=== PATIENT | male | born 1945 | race Caucasian/White ===

== ENCOUNTER → 2017-11-17 | Outpatient (CLI) | payer MEDICARE, BC ==
[2017-11-17 15:09] LABS: ABSOLUTE BASOPHILS # (AUTO) 0.1 10^3/uL (0.0-0.2); ABSOLUTE EOSINOPHILS # (AUTO) 0.5 10^3/uL (0.0-0.6); ABSOLUTE NEUT (AUTO) 6.8 10^3/uL (1.7-8.2); BASOPHILS % (AUTO) 1.2 % (0-2); EOSINOPHILS % (AUTO) 5.3 % (0-6); HEMATOCRIT 37.6 % (37.9-51.0); HEMOGLOBIN 12.4 g/dL (13.5-17.0); LYMPHOCYTES % (AUTO) 10.4 % (13-45); MEAN CORPUSCULAR HEMOGLOBIN 29.8 pg (27.0-33.4); MEAN CORPUSCULAR HGB CONC 32.9 g/dL (32.0-36.0); MEAN CORPUSCULAR VOLUME 91 fl (80-97); MONOCYTES % (AUTO) 10.3 % (3-13); PLATELET COUNT 238 10^3/uL (150-450); RED BLOOD COUNT 4.15 10^6/uL (4.35-5.55); RED CELL DISTRIBUTION WIDTH 14.4 % (11.5-14.0); SEGMENTED NEUTROPHILS % (AUTO) 72.8 % (42-78); TOTAL CELLS COUNTED % (AUTO) 100 %; WHITE BLOOD COUNT 9.3 10^3/uL (4.0-10.5)
[2017-11-17 15:18] LABS: APPEARANCE,URINE CLEAR; BILIRUBIN,URINE NEGATIVE (NEGATIVE); COLOR,URINE YELLOW; GLUCOSE, URINE NEGATIVE (NEGATIVE); KETONES,URINE NEGATIVE (NEGATIVE); LEUKOCYTE ESTERASE,URINE NEGATIVE (NEGATIVE); NITRITE,URINE NEGATIVE (NEGATIVE); PROTEIN,URINE 30 mg/dL (NEGATIVE); URINE SPECIFIC GRAVITY 1.018; UROBILINOGEN,URINE NEGATIVE mg/dL (<2.0)
--- NOTE | 2017-11-17 15:20 | RADIOLOGY REPORT (SQ) ---
EXAM DESCRIPTION: CHEST PA/LATERAL COMPLETED DATE/TIME: 11/17/2017 3:03 pm REASON FOR STUDY: PRE OP COMPARISON: CT angio chest 08/23/2013 Chest films 09/24/2013, 04/19/2014, 04/21/2014, 09/03/2014 EXAM PARAMETERS: NUMBER OF VIEWS: two views TECHNIQUE: Digital Frontal and Lateral radiographic views of the chest acquired. RADIATION DOSE: NA LIMITATIONS: none FINDINGS: LUNGS AND PLEURA: No opacities, masses or pneumothorax. No pleural effusion. MEDIASTINUM AND HILAR STRUCTURES: No masses or contour abnormalities. HEART AND VASCULAR STRUCTURES: Heart normal size. No evidence for failure. BONES: Since films in 2014, patient has had CABG. There are also new surgical clips in the right axi lla. HARDWARE: No pacemaker OTHER: No other significant finding. IMPRESSION: No acute findings. Post CABG. TECHNICAL DOCUMENTATION: JOB ID: [id number] [employer]- All Rights Reserved Reading location - IP/workstation name: [email or web address]
[2017-11-17 15:31] LABS: ANION GAP 11 (5-19); BLOOD UREA NITROGEN 27 mg/dL (7-20); CALCIUM 8.4 mg/dL (8.4-10.2); CARBON DIOXIDE 25 mmol/L (22-30); CHLORIDE 107 mmol/L (98-107); GLUCOSE 108 mg/dL (75-110); POTASSIUM 4.5 mmol/L (3.6-5.0); SODIUM 143.4 mmol/L (137-145)
--- NOTE | 2017-11-17 23:06 | EKG REPORT ---
SEVERITY:- ABNORMAL ECG - SINUS RHYTHM FIRST DEGREE AV BLOCK MINIMAL ST DEPRESSION, LATERAL LEADS : Confirmed by: Cam Baker 17-Nov-2017 23:05:33
== END ==
LOC: OD 14:19
PROVIDERS: ATTEND Orthopaedic Surgery
DX: Z01.810 Encounter for preprocedural cardiovascular examination (principal); Z01.812 Encounter for preprocedural laboratory examination; Z01.818 Encounter for other preprocedural examination
CPT/HCPCS: 36415; 71046; 80048; 81001; 85025; 93005; 93010

== ENCOUNTER 2017-12-13 07:30 | Inpatient (IN) | payer MEDICARE, BC ==
--- NOTE | 2017-12-21 11:25 | Physician Advisory Note ---
Physician Advisor ProgressNote .: [facility], I have reviewed the medical record for this patient. Physician Advisor Statement: Please consider documenting, if you agree: 1. "chronic diastolic CHF" 2. "moderate pulmonary HTN" 3. "DUC" 4. "Chronic Kidney DIsease stage 3" 5. all specific pre-op x-ray/scan findings present that CMS looks for: subchondral cysts, subchondral sclerosis, periarticular osteophytes, joint space narrowing, joint subluxation, AVN/osteonecrosis). 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 Unable to walk >1mile, unable to do vigorous activities or chores, limited with stairs/groceries. - Has risks for acute diastolic CHF w/jacque-op fluid shifts, for respiratory compromise post-op given DUC etc, for acute DE given CAD, for poor progression with post-op PT given age/pulmonary HTN, for GI bleeding given underlying Cleary's & AVMs and need for Plavix & post-op anticoagulation, risk for post- op urinary retention given likely underlying BPH requiring Flomax, risk for ARF post-op given fluid/BP shifts, multiple BP meds including Lasix & losartan... Attending, please document your specific concerns that will make patient likely require 2MNs post-op, to support decision for Inpatient status. Thanks! CK
[2017-12-22] MEDS ORDERED: BUPIVACAINE INJ/PF LIPOSOME/PF 266 MG/20 ML SDV INJ PRN (05:00)
[2017-12-22] MEDS ORDERED: OXYCODONE HCL SR 10 MG TABLET PO PRN (05:00)
[2017-12-22] MEDS ORDERED: LANSOPRAZOLE 15 MG TAB.RAP.DR PO PRN (05:00)
[2017-12-22] MEDS ORDERED: IBUPROFEN 800 MG in NORMAL SALINE 250 ML IV PRN (05:00)
[2017-12-22] MEDS ORDERED: CEFAZOLIN INJ 1 GM VIAL IV PRN (05:00)
[2017-12-22] MEDS ORDERED: LACTATED RINGERS 1000 ML IV PRN (05:00)
[2017-12-22] MEDS ORDERED: VANCOMYCIN HCL 1,000 MG in DEXTROSE 5%-WATER 250 ML IV PRN (05:00)
[2017-12-22] MEDS ORDERED: THROMBIN (BOVINE) 5000 UNIT EPITAXIS KIT ONE (07:36)
[2017-12-22] MEDS ORDERED: THROMBIN (BOVINE) TOPICAL 20000 UNIT VIAL ONE (07:36)
[2017-12-22] MEDS ORDERED: BUPIVACAINE INJ/PF LIPOSOME/PF 266 MG/20 ML SDV ONE (07:37)
[2017-12-22 08:14] LABS: INTERNATIONAL RATION (INR) 1.04; PROTHROMBIN TIME 14.2 SEC (11.4-15.4)
[2017-12-22] MEDS ORDERED: FENTANYL CITRATE INJ/PF 100 MCG/2 ML AMPUL ONE (09:10)
[2017-12-22] MEDS ORDERED: MIDAZOLAM 2 MG/2 ML INJ ONE ×2 (09:11)
[2017-12-22] MEDS ORDERED: TRANEXAMIC ACID INJ/PF 1,000 MG/10 ML SDV IV ONE ×3 (09:11→12:00)
[2017-12-22] MEDS ORDERED: PROPOFOL INJ 200 MG/20 ML VIAL IV ONE (09:11)
[2017-12-22] MEDS ORDERED: MORPHINE SULFATE 10 MG/ML INJ ONE (09:12)
[2017-12-22] MEDS ORDERED: BUPIVACAINE HCL/DEX-WATER/PF 15 MG/2 ML AMPULE ONE (09:13)
[2017-12-22] MEDS ORDERED: EPHEDRINE SULFATE INJ 50 MG/1 ML AMPULE ONE (09:52)
[2017-12-22] MEDS ORDERED: FENTANYL CITRATE INJ/PF 100 MCG/2 ML AMPUL IV PRN ×3 (09:57)
[2017-12-22] MEDS ORDERED: PROMETHAZINE HCL INJ 25 MG/1 ML VIAL IV PRN ×2 (09:57)
[2017-12-22] MEDS ORDERED: MEPERIDINE HCL/PF INJ 25 MG/1 ML DISP.SYRIN IV PRN (09:57)
[2017-12-22] MEDS ORDERED: MORPHINE SULFATE 10 MG/ML INJ IV PRN ×4 (09:57→10:20)
[2017-12-22] MEDS ORDERED: DIPHENHYDRAMINE HCL 50 MG/ML VIAL IV PRN ×2 (09:57→10:20)
--- NOTE | 2017-12-22 10:19 | Operative Report ---
Operative Report DATE OF SURGERY: 12/22/17 PREOPERATIVE DIAGNOSIS: Left knee arthritis OPERATION: Left knee arthroplasty SURGEON: KEM VERA ANESTHESIA: Spinal TISSUE REMOVED OR ALTERED: Bone to pathology ESTIMATED BLOOD LOSS: 100 PROCEDURE: Implants used: Femur: Reji triathlon size 6 CR femur Tibia: 6 tibia Tibial liner: 9 mm CS insert Patella: 35 mm oval patella Procedure with the patient supine on the operating table the left the limb is prepped and draped in a sterile fashion. The limb was elevated for exsanguination and the tourniquet inflated to 280 torr. A standard midline median parapatellar approach the knee is taken. Access is gained to the femoral canal through the intercondylar notch. Intramedullary alignment instrumentation used to resect 10 mm of distal femur in 5 of valgus. Sizing guide indicated a size 6 femur. Appropriate cutting jig is then used to fashion anterior posterior and chamfer cuts. A trial reduction femurs performed and this is judged to be adequate. Attention was next turned to the tibia. Using an extra medullary alignment system 9 millimeters was resected off the lateral tibial plateau. This is sized to a size 6 tibia. A trial reduction was now performed with a 6 femur and a 6 tibia using a 9 millimeters spacer. It is full extension and central patellofemoral tracking. The articular surface the patella was next resected using an oscillating saw. All trial implants were removed. Polymethylmethacrylate is mixed and used to cement the above implants in place. On adequate curing the cement excess cement was removed the tourniquet was deflated hemostasis obtained the wound is then closed in layers using interrupted Vicryl followed by cj. A sterile compressive dressing was applied and the patient returned to recovery room in satisfactory condition.
[2017-12-22] MEDS ORDERED: ACETAMINOPHEN 325 MG TABLET PO PRN (10:20)
[2017-12-22] MEDS ORDERED: ZOLPIDEM TARTRATE 5 MG TABLET PO PRN (10:20)
[2017-12-22] MEDS ORDERED: RINGERS SOLUTION,LACTATED 1,000 ML IV PRN (10:20)
[2017-12-22] MEDS ORDERED: OXYCODONE HCL IR 5 MG TABLET PO PRN (10:20)
[2017-12-22] MEDS ORDERED: ONDANSETRON HCL INJ/PF 4 MG/2 ML SDV IV PRN (10:20)
[2017-12-22] MEDS ORDERED: ONDANSETRON 4 MG TAB.RAPDIS PO PRN (10:20)
[2017-12-22] MEDS ORDERED: MAG HYDROX/AL HYDROX/SIMETH SUSP 30 ML UDCUP PO PRN (10:20)
[2017-12-22] MEDS ORDERED: MORPHINE SULFATE 10 MG/ML INJ IM PRN (10:20)
[2017-12-22] MEDS ORDERED: GLYCOPYRROLATE INJ 0.4 MG/2 ML VIAL ONE (10:53)
[2017-12-22] MEDS ORDERED: PHENYLEPHRINE HCL INJ/PF 10 MG/1 ML SDV ONE (10:53)
[2017-12-22] MEDS ORDERED: DEXAMETHASONE SOD PHOSPHATE INJ 4 MG/1 ML VIAL ONE (10:53)
[2017-12-22] MEDS ORDERED: ONDANSETRON HCL INJ/PF 4 MG/2 ML SDV ONE (10:53)
--- NOTE | 2017-12-22 11:17 | RADIOLOGY REPORT (SQ) ---
EXAM DESCRIPTION: KNEE LEFT 2 VIEWS COMPLETED DATE/TIME: 12/22/2017 11:05 am REASON FOR STUDY: Post OP -Long Cassette in PACU M17.12 UNILATERAL PRIMARY OSTEOARTHRITIS, LEFT KNE E COMPARISON: None. NUMBER OF VIEWS: Two view(s). TECHNIQUE: Digital radiographic images of the left knee post-procedure. LIMITATIONS: None. FINDINGS: BONES: No worrisome or unexpected findings post-procedure. DEVICE: Total knee arthroplasty. SOFT TISSUES: No worrisome findings. Expected postoperative soft tissue changes. IMPRESSION: SATISFACTORY POSTOPERATIVE LEFT KNEE. TECHNICAL DOCUMENTATION: JOB ID: [id number] [employer]- All Rights Reserved Reading location - IP/workstation name: [email or web address]
[2017-12-22] MEDS: IBUPROFEN 800 MG in NORMAL SALINE 250 ML IV SCH (17:57)
[2017-12-22] MEDS: SENNOSIDES/DOCUSATE 8.6-50 MG 1 EACH TABLET PO SCH (17:57)
[2017-12-22] MEDS ORDERED: CARVEDILOL 6.25 MG TABLET PO SCH (22:00)
[2017-12-22] MEDS: TAMSULOSIN HCL 0.4 MG CAP.SR.24H PO SCH (22:08)
[2017-12-22] MEDS: OXYCODONE HCL SR 10 MG TABLET PO SCH (22:08)
[2017-12-22] MEDS: ATORVASTATIN CALCIUM 10 MG TABLET PO SCH (22:08)
[2017-12-22] MEDS ORDERED: VANCOMYCIN HCL 1,000 MG in DEXTROSE 5%-WATER 250 ML IV ONE (22:20)
[2017-12-23] MEDS: IBUPROFEN 800 MG in NORMAL SALINE 250 ML IV SCH ×3 (01:54→17:47)
[2017-12-23] MEDS: LANSOPRAZOLE 30 MG TAB.RAP.DR PO SCH (05:46)
[2017-12-23] MEDS ORDERED: LANSOPRAZOLE 30 MG TAB.RAP.DR PO SCH (06:00)
[2017-12-23 06:43] LABS: HEMATOCRIT 32.9 % (37.9-51.0); HEMOGLOBIN 10.8 g/dL (13.5-17.0); MEAN CORPUSCULAR HEMOGLOBIN 29.4 pg (27.0-33.4); MEAN CORPUSCULAR HGB CONC 32.9 g/dL (32.0-36.0); MEAN CORPUSCULAR VOLUME 89 fl (80-97); PLATELET COUNT 300 10^3/uL (150-450); RED BLOOD COUNT 3.68 10^6/uL (4.35-5.55); RED CELL DISTRIBUTION WIDTH 13.7 % (11.5-14.0); WHITE BLOOD COUNT 17.5 10^3/uL (4.0-10.5)
[2017-12-23 07:12] LABS: ANION GAP 13 (5-19); BLOOD UREA NITROGEN 32 mg/dL (7-20); CARBON DIOXIDE 19 mmol/L (22-30); CHLORIDE 98 mmol/L (98-107); GLUCOSE 132 mg/dL (75-110); POTASSIUM 5.1 mmol/L (3.6-5.0)
--- NOTE | 2017-12-23 07:20 | PDOC PROGRESS REPORT ---
Subjective Progress Note for:: 12/23/17 Reason For Visit: M17.12 UNILATERAL PRIMARY OSTEOARTHRITIS, LEFT KNE 72-year-old white male now postop day 1 from left knee arthroplasty. Patient with minimal complaints of pain this morning. Limited progress with physical therapy yesterday. Physical Exam Vital Signs: Temp Pulse Resp BP Pulse Ox 36.3 C 84 19 159/77 H 94 12/22/17 23:39 12/22/17 23:39 12/22/17 23:39 12/22/17 23:39 12/22/17 23:39 Intake & Output 12/21/17 12/22/17 12/23/17 06:59 06:59 06:59 Intake Total 6712 Output Total 2100 Balance 4612 Weight 109.5 kg General appearance: PRESENT: no acute distress Head exam: PRESENT: normocephalic Respiratory exam: PRESENT: unlabored Cardiovascular exam: PRESENT: RRR Pulses: PRESENT: +1 pedal pulses bilateral Vascular exam: PRESENT: normal capillary refill GI/Abdominal exam: PRESENT: soft Rectal exam: PRESENT: deferred Extremities exam: PRESENT: other - Left lower extremity dressing clean dry and intact. Distal neurovascular examination is intact. Neurological exam: PRESENT: alert, awake, oriented to person, oriented to place , oriented to time, oriented to situation. ABSENT: motor sensory deficit Psychiatric exam: PRESENT: appropriate affect, normal mood. ABSENT: homicidal ideation, suicidal ideation Skin exam: PRESENT: dry, intact, warm. ABSENT: cyanosis, rash Results Laboratory Results: 12/22/17 07:50 Potassium 4.5 Impressions: Knee X-Ray 12/22/17 10:21 IMPRESSION: SATISFACTORY POSTOPERATIVE LEFT KNEE. Status: Imported from PACS Assessment & Plan - Diagnosis (1) Arthritis of left knee Is this a current diagnosis for this admission?: Yes Plan: 72-year-old white male postop day 1 from left knee arthroplasty. Overall postoperative course has been smooth. He has not reached a functional level with physical therapy to allow him to be discharged today. Inpatient hospitalization will be continued. Anticipate discharge home tomorrow with home health services. - Time Time Spent with patient: 15-24 minutes Anticipated discharge: Home with Homehealth Within: within 24 hours
[2017-12-23] MEDS ORDERED: ONDANSETRON 4 MG TAB.RAPDIS PO PRN (07:30)
[2017-12-23] MEDS ORDERED: ONDANSETRON HCL INJ/PF 4 MG/2 ML SDV IV PRN (07:30)
[2017-12-23] MEDS: POTASSIUM CHLORIDE 20 MEQ/15 ML UDCUP PO SCH (09:30)
[2017-12-23] MEDS: DULOXETINE HCL 30 MG CAPSULE.DR PO SCH (09:30)
[2017-12-23] MEDS: LOSARTAN POTASSIUM 50 MG TABLET PO SCH (09:31)
[2017-12-23] MEDS: SENNOSIDES/DOCUSATE 8.6-50 MG 1 EACH TABLET PO SCH ×2 (09:31→17:47)
[2017-12-23] MEDS: CARVEDILOL 12.5 MG TABLET PO SCH ×2 (09:32→21:58)
[2017-12-23] MEDS: FUROSEMIDE 40 MG TABLET PO SCH (09:32)
[2017-12-23] MEDS: OXYCODONE HCL SR 10 MG TABLET PO SCH ×2 (09:32→21:58)
[2017-12-23] MEDS: PRENATAL VITAMIN W DHA CAPSULE PO SCH (09:33)
[2017-12-23] MEDS: CLOPIDOGREL BISULFATE 75 MG TABLET PO SCH (09:33)
[2017-12-23] MEDS ORDERED: CIT AC PO SCH (10:00)
[2017-12-23] MEDS ORDERED: POTASSIUM BICARBONATE PO SCH (10:00)
[2017-12-23] MEDS ORDERED: (PENDING PHARMACY ID) (Losartan Potassium [Losartan Potassium] 100 MG) PO SCH (10:00)
[2017-12-23] MEDS ORDERED: FUROSEMIDE 20 MG TABLET PO SCH (10:00)
[2017-12-23] MEDS: TAMSULOSIN HCL 0.4 MG CAP.SR.24H PO SCH (21:58)
[2017-12-23] MEDS: ATORVASTATIN CALCIUM 10 MG TABLET PO SCH (21:58)
[2017-12-24] MEDS: IBUPROFEN 800 MG in NORMAL SALINE 250 ML IV SCH ×2 (02:35→10:49)
[2017-12-24] MEDS: LANSOPRAZOLE 30 MG TAB.RAP.DR PO SCH (05:29)
[2017-12-24 06:06] LABS: HEMATOCRIT 30.3 % (37.9-51.0); HEMOGLOBIN 10.1 g/dL (13.5-17.0); MEAN CORPUSCULAR HEMOGLOBIN 29.5 pg (27.0-33.4); MEAN CORPUSCULAR HGB CONC 33.2 g/dL (32.0-36.0); MEAN CORPUSCULAR VOLUME 89 fl (80-97); RED BLOOD COUNT 3.42 10^6/uL (4.35-5.55); RED CELL DISTRIBUTION WIDTH 14.1 % (11.5-14.0); WHITE BLOOD COUNT 17.3 10^3/uL (4.0-10.5)
[2017-12-24 06:30] LABS: PLATELET COUNT 226 10^3/uL (150-450)
--- NOTE | 2017-12-24 06:47 | PDOC PROGRESS REPORT ---
Subjective Progress Note for:: 12/24/17 Reason For Visit: M17.12 UNILATERAL PRIMARY OSTEOARTHRITIS, LEFT KNE 72-year-old white male now postop day 2 from left knee arthroplasty with new onset urinary retention last night requiring RUSLAN straight cath. Patient reports he has had this problem in the past but really was not able to describe to me what led to its resolution. Physical Exam Vital Signs: Temp Pulse Resp BP Pulse Ox 36.8 C 67 19 139/46 H 91 L 12/24/17 00:00 12/24/17 00:00 12/24/17 00:00 12/24/17 00:00 12/24/17 00:00 Intake & Output 12/22/17 12/23/17 12/24/17 06:59 06:59 06:59 Intake Total 6712 879 Output Total 2100 1050 Balance 4612 -171 Weight 109.5 kg 127.3 kg General appearance: PRESENT: no acute distress Respiratory exam: PRESENT: unlabored Cardiovascular exam: PRESENT: RRR Pulses: PRESENT: normal dorsalis pedis pul Vascular exam: PRESENT: normal capillary refill GI/Abdominal exam: PRESENT: soft Rectal exam: PRESENT: deferred Extremities exam: PRESENT: other - Knee dressing clean dry and intact. Minimal pedal edema. Neurological exam: PRESENT: alert, awake, oriented to person, oriented to place , oriented to time, oriented to situation. ABSENT: motor sensory deficit Skin exam: PRESENT: dry, intact, warm. ABSENT: cyanosis, rash Results Laboratory Results: 12/24/17 04:47 12/23/17 06:00 12/23/17 12/23/17 12/24/17 06:00 06:00 04:47 WBC 17.5 H 17.3 H RBC 3.68 L 3.42 L Hgb 10.8 L 10.1 L Hct 32.9 L 30.3 L MCV 89 89 MCH 29.4 29.5 MCHC 32.9 33.2 RDW 13.7 14.1 H Plt Count 300 226 Sodium 130.0 L Potassium 5.1 H Chloride 98 Carbon Dioxide 19 L Anion Gap 13 BUN 32 H Creatinine 1.91 H Est GFR ( Amer) 42 L Est GFR (Non-Af Amer) 35 L Glucose 132 H Calcium 9.0 Impressions: Knee X-Ray 12/22/17 10:21 IMPRESSION: SATISFACTORY POSTOPERATIVE LEFT KNEE. Status: Imported from PACS Assessment & Plan - Diagnosis (1) Arthritis of left knee Is this a current diagnosis for this admission?: Yes Plan: 72-year-old white male status post knee arthroplasty with an excellent result. Patient would have been ready for discharge home if he had developed urinary retention last night. (2) Urinary retention Is this a current diagnosis for this admission?: Yes Plan: Patient underwent RUSLAN cath and 1050 cc of urine was drained. Narcotics have been stopped. Urology has been consulted. Discharge pending resolution of the urinary retention. - Time Time Spent with patient: 15-24 minutes Anticipated discharge: Home with Homehealth Within: Other
[2017-12-24] MEDS: CARVEDILOL 12.5 MG TABLET PO SCH ×2 (10:48→22:00)
[2017-12-24] MEDS: CLOPIDOGREL BISULFATE 75 MG TABLET PO SCH (10:48)
[2017-12-24] MEDS: DULOXETINE HCL 30 MG CAPSULE.DR PO SCH (10:49)
[2017-12-24] MEDS: FUROSEMIDE 40 MG TABLET PO SCH (10:49)
[2017-12-24] MEDS: SENNOSIDES/DOCUSATE 8.6-50 MG 1 EACH TABLET PO SCH ×2 (10:49→18:11)
[2017-12-24] MEDS: PRENATAL VITAMIN W DHA CAPSULE PO SCH (10:49)
[2017-12-24] MEDS: LOSARTAN POTASSIUM 50 MG TABLET PO SCH (10:49)
[2017-12-24] MEDS: POTASSIUM CHLORIDE 20 MEQ/15 ML UDCUP PO SCH (10:49)
--- NOTE | 2017-12-24 11:00 | PDOC CONSULTATION ---
Consultation Consult Date: 12/24/17 Attending physician:: AMY PASTOR Consult reason:: urine retention History of Present Illness Admission Date/PCP: 12/22/17 06:50 KERVIN CORBETT History of Present Illness: ANSHU MCNAMARA is a 72 year old male Past Medical History Cardiac Medical History: Reports: Congestive Heart Failure, Hyperlipidema, Hypertension Denies: Atrial Fibrillation, Coronary Artery Disease, Myocardial Infarction, Peripheral Vascular Disease, Heart Murmur Pulmonary Medical History: Denies: Asthma, Bronchitis, Chronic Obstructive Pulmonary Disease (COPD), Pneumonia, Sleep Apnea, Tuberculosis Neurological Medical History: Denies: Seizures Endocrine Medical History: Denies: Hyperthyroidism, Hypothyroidism GI Medical History: Reports: Gastroesophageal Reflux Disease Denies: Crohn's Disease, Hiatal Hernia Musculoskeltal Medical History: Reports: Arthritis - knees, hips Denies: Fibromyalgia Psychiatric Medical History: Denies: Bipolar Disorder, Depression Hematology: Denies: Anemia, Sickle Cell Disease Past Surgical History Past Surgical History: Reports: Cardiac Catheterization, Coronary Stent, Orthopedic Surgery - left hip fx Denies: Appendectomy, Cholecystectomy, Colostomy, Coronary Artery Bypass Graft, Gastric Bypass Surgery, Herniorrhaphy, Tonsillectomy Social History Smoking Status: Never Smoker Frequency of Alcohol Use: None Hx Recreational Drug Use: No Hx Prescription Drug Abuse: No - Advance Directive Resuscitation Status: Full Code Family History Family History: CAD, DM, Hypertension Parental Family History Reviewed: No Children Family History Reviewed: No Sibling(s) Family History Reviewed.: No Medication/Allergy Home Medications: Duloxetine HCl [Cymbalta] 60 mg PO DAILY 09/23/13 Pantoprazole Sodium [Protonix] 40 mg PO DAILY 11/23/13 Atorvastatin Calcium [Lipitor 10 mg Tablet] 10 mg PO QHS 12/11/13 Clopidogrel Bisulfate [Plavix 75 mg Tablet] 75 mg PO DAILY 04/17/14 Tamsulosin HCl [Flomax] 0.4 mg PO QHS #30 cap.sr.24h 09/06/14 Carvedilol [Coreg 6.25 mg Tablet] 12.5 mg PO Q12 07/28/16 Furosemide [Lasix 20 mg Tablet] 40 mg PO BID 07/28/16 Losartan Potassium 100 mg PO DAILY 07/28/16 Meloxicam [Mobic] 15 mg PO DAILYP PRN 12/22/17 Tramadol HCl 50 mg PO Q6HP PRN 12/22/17 Allergies/Adverse Reactions: No Known Allergies Allergy (Verified 07/24/16 13:59) Physical Exam Vital Signs: Temp Pulse Resp BP Pulse Ox 97.5 F 69 16 140/49 H 92 12/24/17 08:00 12/24/17 08:00 12/24/17 08:00 12/24/17 08:00 12/24/17 08:00 Intake & Output 12/23/17 12/24/17 12/25/17 06:59 06:59 06:59 Intake Total 6712 879 Output Total 2100 1050 Balance 4612 -171 Weight 109.5 kg 127.3 kg Results Laboratory Results: 12/24/17 04:47 12/23/17 06:00 12/24/17 04:47 WBC 17.3 H RBC 3.42 L Hgb 10.1 L Hct 30.3 L MCV 89 MCH 29.5 MCHC 33.2 RDW 14.1 H Plt Count 226 Impressions: Knee X-Ray 12/22/17 10:21 IMPRESSION: SATISFACTORY POSTOPERATIVE LEFT KNEE. Assessment & Plan - Diagnosis (1) Urinary retention Is this a current diagnosis for this admission?: No Plan: intermittent catheterization until the residual urine is less than 50 cc will start on tamsulosin 1 tab Q day appt to urology clinic after discharge
[2017-12-24 16:12] LABS: APPEARANCE,URINE CLOUDY; BILIRUBIN,URINE NEGATIVE (NEGATIVE); COLOR,URINE YELLOW; GLUCOSE, URINE 50 mg/dL (NEGATIVE); KETONES,URINE NEGATIVE (NEGATIVE); LEUKOCYTE ESTERASE,URINE MODERATE (NEGATIVE); NITRITE,URINE NEGATIVE (NEGATIVE); PROTEIN,URINE 30 mg/dL (NEGATIVE); URINE SPECIFIC GRAVITY 1.011; UROBILINOGEN,URINE NEGATIVE mg/dL (<2.0)
[2017-12-24] MEDS: TAMSULOSIN HCL 0.4 MG CAP.SR.24H PO SCH (22:00)
[2017-12-24] MEDS: ATORVASTATIN CALCIUM 10 MG TABLET PO SCH (22:00)
[2017-12-25] MEDS: LANSOPRAZOLE 30 MG TAB.RAP.DR PO SCH (06:06)
[2017-12-25 06:17] LABS: HEMATOCRIT 24.8 % (37.9-51.0); HEMOGLOBIN 8.4 g/dL (13.5-17.0); MEAN CORPUSCULAR HEMOGLOBIN 30.1 pg (27.0-33.4); MEAN CORPUSCULAR HGB CONC 33.7 g/dL (32.0-36.0); MEAN CORPUSCULAR VOLUME 89 fl (80-97); PLATELET COUNT 225 10^3/uL (150-450); RED BLOOD COUNT 2.78 10^6/uL (4.35-5.55); RED CELL DISTRIBUTION WIDTH 13.9 % (11.5-14.0); WHITE BLOOD COUNT 12.4 10^3/uL (4.0-10.5)
[2017-12-25] MEDS: POTASSIUM CHLORIDE 20 MEQ/15 ML UDCUP PO SCH (10:24)
[2017-12-25] MEDS: SENNOSIDES/DOCUSATE 8.6-50 MG 1 EACH TABLET PO SCH ×2 (10:25→18:26)
[2017-12-25] MEDS: TRAMADOL HCL 50 MG TABLET PO PRN (10:25)
[2017-12-25] MEDS: FUROSEMIDE 40 MG TABLET PO SCH (10:25)
[2017-12-25] MEDS: CLOPIDOGREL BISULFATE 75 MG TABLET PO SCH (10:25)
[2017-12-25] MEDS: DULOXETINE HCL 30 MG CAPSULE.DR PO SCH (10:25)
[2017-12-25] MEDS: LOSARTAN POTASSIUM 50 MG TABLET PO SCH (10:25)
[2017-12-25] MEDS: PRENATAL VITAMIN W DHA CAPSULE PO SCH (10:25)
[2017-12-25] MEDS: CARVEDILOL 12.5 MG TABLET PO SCH ×2 (10:25→22:06)
--- NOTE | 2017-12-25 17:07 | PDOC PROGRESS REPORT ---
Subjective Progress Note for:: 12/25/17 Reason For Visit: M17.12 UNILATERAL PRIMARY OSTEOARTHRITIS, LEFT KNE 72-year-old white male status post left knee arthroplasty. Patient developed urinary retention which precludes discharge. Ongoing inpatient physical therapy continues. Physical Exam Vital Signs: Temp Pulse Resp BP Pulse Ox 36.7 C 70 16 120/48 L 97 12/25/17 15:54 12/25/17 15:54 12/25/17 15:54 12/25/17 15:54 12/25/17 15:54 Intake & Output 12/24/17 12/25/17 12/26/17 06:59 06:59 06:59 Intake Total 879 1318 600 Output Total 1050 3265 900 Balance -120 -924 -578 Weight 127.3 kg 120.6 kg General appearance: PRESENT: no acute distress Pulses: PRESENT: +1 pedal pulses bilateral Vascular exam: PRESENT: normal capillary refill Extremities exam: PRESENT: other - Left knee dressing clean dry and intact Results Laboratory Results: 12/25/17 05:28 12/23/17 06:00 12/25/17 05:28 WBC 12.4 H RBC 2.78 L Hgb 8.4 L Hct 24.8 L MCV 89 MCH 30.1 MCHC 33.7 RDW 13.9 Plt Count 225 Impressions: Knee X-Ray 12/22/17 10:21 IMPRESSION: SATISFACTORY POSTOPERATIVE LEFT KNEE. Assessment & Plan - Diagnosis (1) Arthritis of left knee Is this a current diagnosis for this admission?: Yes Plan: Continued physical therapy until discharge feasible (2) Urinary retention Is this a current diagnosis for this admission?: No - Time Time Spent with patient: 15-24 minutes Anticipated discharge: Home with Homehealth Within: Other
[2017-12-25] MEDS: TAMSULOSIN HCL 0.4 MG CAP.SR.24H PO SCH (22:06)
[2017-12-25] MEDS: ATORVASTATIN CALCIUM 10 MG TABLET PO SCH (22:07)
[2017-12-26] MEDS: LANSOPRAZOLE 30 MG TAB.RAP.DR PO SCH (06:30)
--- NOTE | 2017-12-26 06:43 | PDOC PROGRESS REPORT ---
Subjective Progress Note for:: 12/26/17 Reason For Visit: M17.12 UNILATERAL PRIMARY OSTEOARTHRITIS, LEFT KNE Patient continues to complain of pain in the left knee as well as inability to spontaneously void Physical Exam Vital Signs: Temp Pulse Resp BP Pulse Ox 36.9 C 77 21 H 139/50 H 97 12/25/17 23:30 12/25/17 23:30 12/25/17 23:30 12/25/17 23:30 12/25/17 23:30 Intake & Output 12/24/17 12/25/17 12/26/17 06:59 06:59 06:59 Intake Total 879 1318 600 Output Total 1050 0015 900 Balance -909 -957 -300 Weight 127.3 kg 120.6 kg General appearance: PRESENT: no acute distress Head exam: PRESENT: normocephalic Respiratory exam: PRESENT: unlabored Cardiovascular exam: PRESENT: RRR Pulses: PRESENT: +1 pedal pulses bilateral Vascular exam: PRESENT: normal capillary refill GI/Abdominal exam: PRESENT: soft Rectal exam: PRESENT: deferred Extremities exam: PRESENT: other - Left knee dressing clean dry and intact Neurological exam: PRESENT: alert, awake, oriented to person, oriented to place , oriented to time, oriented to situation. ABSENT: motor sensory deficit Psychiatric exam: PRESENT: appropriate affect, normal mood. ABSENT: homicidal ideation, suicidal ideation Skin exam: PRESENT: dry, intact, warm. ABSENT: cyanosis, rash Results Laboratory Results: 12/25/17 05:28 12/23/17 06:00 Impressions: Knee X-Ray 12/22/17 10:21 IMPRESSION: SATISFACTORY POSTOPERATIVE LEFT KNEE. Status: Imported from PACS Assessment & Plan - Diagnosis (1) Arthritis of left knee Is this a current diagnosis for this admission?: Yes Plan: Stable. Undergoing postoperative rehabilitation. Aggressive efforts to attain full extension needed. (2) Urinary retention Is this a current diagnosis for this admission?: Yes Plan: Urinary retention appears to be secondary to a urinary tract infection on the basis of the urine analysis. Patient will be empirically started on Septra. - Time Time Spent with patient: 15-24 minutes Anticipated discharge: Home with Homehealth Within: Other
[2017-12-26] MEDS: CARVEDILOL 12.5 MG TABLET PO SCH ×2 (09:05→21:05)
[2017-12-26] MEDS: DULOXETINE HCL 30 MG CAPSULE.DR PO SCH (09:05)
[2017-12-26] MEDS: CLOPIDOGREL BISULFATE 75 MG TABLET PO SCH (09:05)
[2017-12-26] MEDS: TRAMADOL HCL 50 MG TABLET PO PRN (09:06)
[2017-12-26] MEDS: LOSARTAN POTASSIUM 50 MG TABLET PO SCH (09:06)
[2017-12-26] MEDS: POTASSIUM CHLORIDE 20 MEQ/15 ML UDCUP PO SCH (09:06)
[2017-12-26] MEDS: PRENATAL VITAMIN W DHA CAPSULE PO SCH (09:06)
[2017-12-26] MEDS: SENNOSIDES/DOCUSATE 8.6-50 MG 1 EACH TABLET PO SCH ×2 (09:06→18:00)
[2017-12-26] MEDS: SULFAMETHOXAZOLE/TRIMETHOPRIM 800-160 MG TABLET PO SCH ×2 (09:06→21:43)
[2017-12-26] MEDS: FUROSEMIDE 40 MG TABLET PO SCH (09:06)
[2017-12-26] MEDS: ATORVASTATIN CALCIUM 10 MG TABLET PO SCH (21:42)
[2017-12-26] MEDS: TAMSULOSIN HCL 0.4 MG CAP.SR.24H PO SCH (21:43)
[2017-12-27] MEDS: LANSOPRAZOLE 30 MG TAB.RAP.DR PO SCH (05:34)
[2017-12-27] MEDS: CARVEDILOL 12.5 MG TABLET PO SCH ×2 (09:17→21:49)
[2017-12-27] MEDS: CLOPIDOGREL BISULFATE 75 MG TABLET PO SCH (09:17)
[2017-12-27] MEDS: DULOXETINE HCL 30 MG CAPSULE.DR PO SCH (09:20)
[2017-12-27] MEDS: FUROSEMIDE 40 MG TABLET PO SCH (09:20)
[2017-12-27] MEDS: LOSARTAN POTASSIUM 50 MG TABLET PO SCH (09:20)
[2017-12-27] MEDS: PRENATAL VITAMIN W DHA CAPSULE PO SCH (09:21)
[2017-12-27] MEDS: SULFAMETHOXAZOLE/TRIMETHOPRIM 800-160 MG TABLET PO SCH ×2 (09:21→21:49)
[2017-12-27] MEDS: SENNOSIDES/DOCUSATE 8.6-50 MG 1 EACH TABLET PO SCH ×2 (09:21→18:36)
[2017-12-27] MEDS: POTASSIUM CHLORIDE 20 MEQ/15 ML UDCUP PO SCH (09:21)
[2017-12-27] MEDS: ATORVASTATIN CALCIUM 10 MG TABLET PO SCH (21:49)
[2017-12-27] MEDS: TAMSULOSIN HCL 0.4 MG CAP.SR.24H PO SCH (21:49)
[2017-12-28] MEDS: LANSOPRAZOLE 30 MG TAB.RAP.DR PO SCH (05:30)
--- NOTE | 2017-12-28 07:17 | PDOC PROGRESS REPORT ---
Subjective Progress Note for:: 12/28/17 Reason For Visit: M17.12 UNILATERAL PRIMARY OSTEOARTHRITIS, LEFT KNE 72-year-old white male status post left knee arthroplasty with persistent inability to void spontaneously requiring intermittent RUSLAN catheterization. Physical Exam Vital Signs: Temp Pulse Resp BP Pulse Ox 37.1 C 55 L 19 122/52 L 99 12/27/17 23:08 12/27/17 23:08 12/27/17 23:08 12/27/17 23:10 12/27/17 23:08 Intake & Output 12/27/17 12/28/17 12/29/17 06:59 06:59 06:59 Intake Total 1476 230 Output Total 965 1450 Balance 511 -1220 Weight 121 kg 120.4 kg General appearance: PRESENT: no acute distress Head exam: PRESENT: normocephalic Respiratory exam: PRESENT: unlabored Cardiovascular exam: PRESENT: RRR Pulses: PRESENT: +1 pedal pulses bilateral Vascular exam: PRESENT: normal capillary refill GI/Abdominal exam: PRESENT: soft Rectal exam: PRESENT: deferred Extremities exam: PRESENT: other - Left knee dressing with old scant drainage. Neurological exam: PRESENT: alert, awake, oriented to person, oriented to place , oriented to time, oriented to situation. ABSENT: motor sensory deficit Psychiatric exam: PRESENT: appropriate affect, normal mood. ABSENT: homicidal ideation, suicidal ideation Skin exam: PRESENT: dry, intact, warm. ABSENT: cyanosis, rash Results Laboratory Results: 12/25/17 05:28 12/23/17 06:00 Impressions: Knee X-Ray 12/22/17 10:21 IMPRESSION: SATISFACTORY POSTOPERATIVE LEFT KNEE. Status: Imported from PACS Assessment & Plan - Diagnosis (1) Arthritis of left knee Is this a current diagnosis for this admission?: Yes Plan: Status post left knee arthroplasty with an uneventful postoperative course. (2) Urinary retention Is this a current diagnosis for this admission?: Yes Plan: Patient continues to require I and O caths every 6. Tentative plan will be to teach the patient and his had to do the catheterizations and anticipate discharge home tomorrow with home health services. - Time Time Spent with patient: 15-24 minutes Anticipated discharge: Home with Homehealth Within: within 24 hours
[2017-12-28] MEDS ORDERED: MAGNESIUM CITRATE 296 ML BOTTLE PO ONE (09:30)
[2017-12-28] MEDS: POTASSIUM CHLORIDE 20 MEQ/15 ML UDCUP PO SCH (10:02)
[2017-12-28] MEDS: CLOPIDOGREL BISULFATE 75 MG TABLET PO SCH (10:03)
[2017-12-28] MEDS: DULOXETINE HCL 30 MG CAPSULE.DR PO SCH (10:03)
[2017-12-28] MEDS: PRENATAL VITAMIN W DHA CAPSULE PO SCH (10:03)
[2017-12-28] MEDS: CARVEDILOL 12.5 MG TABLET PO SCH ×2 (10:03→22:40)
[2017-12-28] MEDS: LOSARTAN POTASSIUM 50 MG TABLET PO SCH (10:03)
[2017-12-28] MEDS: FUROSEMIDE 40 MG TABLET PO SCH (10:03)
[2017-12-28] MEDS: SENNOSIDES/DOCUSATE 8.6-50 MG 1 EACH TABLET PO SCH ×2 (10:04→18:13)
[2017-12-28] MEDS: SULFAMETHOXAZOLE/TRIMETHOPRIM 800-160 MG TABLET PO SCH ×2 (10:04→22:40)
[2017-12-28] MEDS: TRAMADOL HCL 50 MG TABLET PO PRN (18:58)
[2017-12-28] MEDS: TAMSULOSIN HCL 0.4 MG CAP.SR.24H PO SCH (22:40)
[2017-12-28] MEDS: ATORVASTATIN CALCIUM 10 MG TABLET PO SCH (22:40)
[2017-12-29] MEDS: LANSOPRAZOLE 30 MG TAB.RAP.DR PO SCH (05:05)
--- NOTE | 2017-12-29 07:22 | PDOC DISCHARGE SUMMARY ---
General - Admit/Disc Date/PCP Admission Date/Primary Care Provider: 12/22/17 06:50 KERVIN CORBETT Discharge Date: 12/29/17 - Discharge Diagnosis (1) Arthritis of left knee Is this a current diagnosis for this admission?: Yes (2) Urinary retention Is this a current diagnosis for this admission?: Yes - Additional Information Resuscitation Status: Full Code Discharge Diet: As Tolerated, Regular Discharge Activity: Activity As Tolerated, Balance Activity w/Rest, No Driving, No tub bath Home Medications: Duloxetine HCl [Cymbalta] 60 mg PO DAILY 09/23/13 Pantoprazole Sodium [Protonix] 40 mg PO DAILY 11/23/13 Atorvastatin Calcium [Lipitor 10 mg Tablet] 10 mg PO QHS 12/11/13 Clopidogrel Bisulfate [Plavix 75 mg Tablet] 75 mg PO DAILY 04/17/14 Tamsulosin HCl [Flomax] 0.4 mg PO QHS #30 cap.sr.24h 09/06/14 Carvedilol [Coreg 6.25 mg Tablet] 12.5 mg PO Q12 07/28/16 Furosemide [Lasix 20 mg Tablet] 40 mg PO BID 07/28/16 Losartan Potassium 100 mg PO DAILY 07/28/16 Meloxicam [Mobic] 15 mg PO DAILYP PRN 12/22/17 Tramadol HCl 50 mg PO Q6HP PRN 12/22/17 History of Present Illness History of Present Illness: ANSHU MCNAMARA is a 72 year old male with progressive left knee pain and functional disability secondary osteoarthritis. Patient is admitted for elective left knee arthroplasty. Hospital Course Hospital Course: Patient is admitted through the operating where he and his undergoes uncomplicated left knee arthroplasty. Is returned to floor in satisfactory vision. Seen by physical therapy for weightbearing as tolerated ambulation. Taken patient makes slow but steady progress in this regard. Dressing remains clean dry and intact. By the second postoperative day the patient is exhibiting urinary retention. And in and out cathing program is started and urology is consulted. Urology prescribed Flomax. Patient was started on Septra for presumed urinary tract infection. In spite of Flomax and Septra the patient's urinary retention is not significantly improved. He was taught how to in and out catheterize himself in anticipation of discharge home today. Physical Exam Vital Signs: Temp Pulse Resp BP Pulse Ox 36.7 C 56 L 20 124/43 L 100 12/28/17 23:35 12/28/17 23:35 12/28/17 23:35 12/28/17 23:35 12/28/17 23:35 Intake & Output 12/28/17 12/29/17 12/30/17 06:59 06:59 06:59 Intake Total 230 544 Output Total 1450 1650 Balance -1220 -1106 Weight 120.4 kg 120.4 kg General appearance: PRESENT: no acute distress Head exam: PRESENT: normocephalic Respiratory exam: PRESENT: unlabored Cardiovascular exam: PRESENT: RRR Pulses: PRESENT: +1 pedal pulses bilateral Vascular exam: PRESENT: normal capillary refill GI/Abdominal exam: PRESENT: soft Rectal exam: PRESENT: deferred Musculoskeletal exam: PRESENT: other - Left knee dressing clean dry and intact. Minimal pedal edema. Distal neurovascular examination is intact. Neurological exam: PRESENT: alert, awake, oriented to person, oriented to place , oriented to time, oriented to situation, CN II-XII grossly intact. ABSENT: motor sensory deficit Psychiatric exam: PRESENT: appropriate affect, normal mood. ABSENT: homicidal ideation, suicidal ideation Skin exam: PRESENT: dry, intact, warm. ABSENT: cyanosis, rash Results Laboratory Results: 12/25/17 05:28 12/23/17 06:00 Impressions: Knee X-Ray 12/22/17 10:21 IMPRESSION: SATISFACTORY POSTOPERATIVE LEFT KNEE. Status: Imported from PACS Qualifiers - * PATIENT BEING DISCHARGED WITH ANY OF THE FOLLOWING DIAGNOSIS: No VTE patient discharged on overlapping Therapy?: Yes Plan Discharge Plan: Patient to be discharged home with home health services. Patient will follow up with urology on an outpatient basis. Follow-up with Dr. Arzate and [facility] for surgery in 2 weeks for staple removal. Time Spent: Less than 30 Minutes
[2017-12-29 08:39] VITALS: BP 122/46
== END 2017-12-29 10:10 | disposition home health service (06) | DRG 470 ==
LOC: INOR 12-22 06:50 → 4S 12-22 12:04
PROVIDERS: ADMIT Orthopaedic Surgery; ATTEND Orthopaedic Surgery
PROC: 0SRD0J9 Replacement of Left Knee Joint with Synthetic Substitute, Cemented, Open Approach (ICD-10-PCS; principal; 2017-12-22 09:00)
DX: M17.0 Bilateral primary osteoarthritis of knee (principal); N17.9 Acute kidney failure, unspecified; Z51.5 Encounter for palliative care; R33.9 Retention of urine, unspecified; I11.0 Hypertensive heart disease with heart failure; I50.9 Heart failure, unspecified; E78.00 Pure hypercholesterolemia, unspecified; K21.9 Gastro-esophageal reflux disease without esophagitis; M16.0 Bilateral primary osteoarthritis of hip; D64.9 Anemia, unspecified; K22.719 Barrett's esophagus with dysplasia, unspecified; Z79.899 Other long term (current) drug therapy; Z95.5 Presence of coronary angioplasty implant and graft; Z82.49 Family history of ischemic heart disease and other diseases of the circulatory system; Z83.3 Family history of diabetes mellitus
CPT/HCPCS: 01402; 36415; 80048; 81001; 82962; 84132; 85027; 85610; 85730; 87086; 88305; 88311; 94799; C2625; C9290; G8978-GP; G8979-GP; G8990-GO; G8991-GO; J0690; J1100; J1741; J2250; J2270; J2370; J2405; J2704; J3010; J3370; J3490; J7050; J7060; S0119

== ENCOUNTER 2018-01-19 12:52 | Inpatient (IN) | payer MEDICARE, BC ==
[2018-01-19] MEDS ORDERED: CEFTRIAXONE 1 GM/D5W RTU 1 GM/50 ML RTUPB IV ONE (13:19)
[2018-01-19] MEDS ORDERED: NORMAL SALINE 1000 ML 1,000 ML IV ONE (13:19)
--- NOTE | 2018-01-19 13:31 | ER Document Report ---
ED General - General Chief Complaint: Altered Mental Status Stated Complaint: ALTERED MENTAL STATUS Time Seen by Provider: 01/19/18 13:04 Mode of Arrival: Ambulatory Information source: Patient, Relative Cannot obtain history due to: Altered mental status Notes: 72-year-old male presents with 1 week duration of altered mental status per . notes that he had knee replacement performed approximately 1 month ago had a Tucker catheter at that time, has noted foul-smelling urine and dark urine. notes that he has been hallucinating and trying to grab at things that are not there. Patient admits that he has been drowsier than normal TRAVEL OUTSIDE OF THE [place] IN LAST 30 DAYS: No - HPI Onset: Last week Onset/Duration: Persistent Quality of pain: No pain Severity: Mild Pain Level: Denies Associated symptoms: Weakness, Other Exacerbated by: Denies Relieved by: Denies Similar symptoms previously: No Recently seen / treated by doctor: No - Related Data Allergies/Adverse Reactions: No Known Allergies Allergy (Verified 07/24/16 13:59) Past Medical History - Social History Smoking Status: Never Smoker Cigarette use (# per day): No Chew tobacco use (# tins/day): No Smoking Education Provided: No Family History: CAD, DM, Hypertension - Past Medical History Cardiac Medical History: Reports: Hx Congestive Heart Failure, Hx Hypercholesterolemia, Hx Hypertension Denies: Hx Atrial Fibrillation, Hx Coronary Artery Disease, Hx Heart Attack, Hx Peripheral Vascular Disease, Hx Heart Murmur Pulmonary Medical History: Denies: Hx Asthma, Hx Bronchitis, Hx COPD, Hx Pneumonia, Hx Sleep Apnea, Hx Tuberculosis Neurological Medical History: Denies: Hx Cerebrovascular Accident, Hx Seizures Endocrine Medical History: Denies: Hx Hyperthyroidism, Hx Hypothyroidism Renal/ Medical History: Reports: Hx Benign Prostatic Hyperplasia, Hx Renal Insufficiency. Denies: Hx Kidney Stones, Hx Peritoneal Dialysis GI Medical History: Reports: Hx Gastroesophageal Reflux Disease. Denies: Hx Crohn's Disease, Hx Hiatal Hernia, Hx Irritable Bowel, Hx Liver Failure, Hx Pancreatitis, Hx Ulcer Musculoskeltal Medical History: Reports Hx Arthritis - knees, hips , Denies Hx Fibromyalgia, Denies Hx Muscular Dystrophy Psychiatric Medical History: Denies: Hx Bipolar Disorder, Hx Depression Traumatic Medical History: Reports: Hx Fractures - hip Past Surgical History: Reports: Hx Cardiac Catheterization, Hx Cardiac Surgery - stents, Hx Coronary Stent, Hx Orthopedic Surgery - left hip fx. Denies: Hx Appendectomy, Hx Bowel Surgery, Hx Cholecystectomy, Hx Colostomy, Hx Coronary Artery Bypass Graft, Hx Gastric Bypass Surgery, Hx Herniorrhaphy, Hx Tonsillectomy - Immunizations Hx Diphtheria, Pertussis, Tetanus Vaccination: Yes - unknown Hx Pneumococcal Vaccination: 08/26/13 Review of Systems - Review of Systems Notes: REVIEW OF SYSTEMS: CONSTITUTIONAL : Denies fever, chills, or sweats. Denies recent illness. EENT: Denies eye, ear, throat, or mouth pain or symptoms. Denies nasal or sinus congestion or discharge. Denies throat, tongue, or mouth swelling or difficulty swallowing. CARDIOVASCULAR: Denies chest pain. Denies palpitations or racing or irregular heart beat. Denies ankle edema. RESPIRATORY: Denies cough, cold, or chest congestion. Denies shortness of breath, difficulty breathing, or wheezing. GASTROINTESTINAL: Denies abdominal pain or distention. Denies nausea, vomiting , or diarrhea. Denies blood in vomitus, stools, or per rectum. Denies black, tarry stools. Denies constipation. GENITOURINARY: Admits to foul-smelling urine MUSCULOSKELETAL: Denies back or neck pain or stiffness. Denies joint pain or swelling. SKIN: Denies rash, lesions or sores. HEMATOLOGIC : Denies easy bruising or bleeding. LYMPHATIC: Denies swollen, enlarged glands. NEUROLOGICAL: Admits confusion PSYCHIATRIC: Denies anxiety or stress. Denies depression, suicidal ideation, or homicidal ideation. ALL OTHER SYSTEMS REVIEWED AND NEGATIVE. Dictation was performed using [employer] voice recognition software PHYSICAL EXAMINATION: GENERAL: Well-appearing, well-nourished and in no acute distress. Patient is drowsy HEAD: Atraumatic, normocephalic. EYES: Pupils equal round and reactive to light, extraocular movements intact, sclera anicteric, conjunctiva are normal. ENT: Nares patent, oropharynx clear without exudates. Moist mucous membranes. NECK: Normal range of motion, supple without lymphadenopathy LUNGS: Breath sounds clear to auscultation bilaterally and equal. No wheezes rales or rhonchi. HEART: Regular rate and rhythm without murmurs ABDOMEN: Soft, nontender, nondistended abdomen. No guarding, no rebound. No masses appreciated. Musculoskeletal: Normal range of motion, no pitting or edema. No cyanosis. NEUROLOGICAL: Patient is quite drowsy believes is 2014 PSYCH: Normal mood, normal affect. SKIN: Warm, Dry, normal turgor, no rashes or lesions noted. Physical Exam - Vital signs Vitals: Resp Pulse Ox 20 96 01/19/18 13:56 01/19/18 13:56 Course - Re-evaluation Re-evalutation: 01/19/18 14:02 Patient is able to follow commands however appears quite drowsy, I am concerned that he is ill due to his UTI, lab work pending 01/19/18 15:25 workup thus far is benign, but patient is quite confused and drowsy, Dr Corbett paged for admission 01/19/18 16:26 Patient will be admitted at this time vitals are stable but he continues to be quite drowsy and confused - Vital Signs Vital signs: Temp Pulse Resp BP Pulse Ox 18 145/43 H 95 01/19/18 15:05 01/19/18 14:04 01/19/18 14:04 - Laboratory Result Diagrams: 01/19/18 12:32 01/19/18 12:32 Laboratory results interpreted by me: 01/19/18 01/19/18 01/19/18 12:32 12:32 12:32 RBC 3.29 L Hgb 9.7 L Hct 28.7 L RDW 14.6 H Plt Count 654 H Lymphocytes % 11.9 L PT 16.0 H VBG pH Potassium 5.7 H BUN 42 H Creatinine 2.19 H Est GFR ( Amer) 36 L Est GFR (Non-Af Amer) 30 L Direct Bilirubin 0.6 H Urine Blood 01/19/18 01/19/18 13:37 13:56 RBC Hgb Hct RDW Plt Count Lymphocytes % PT VBG pH 7.45 H Potassium BUN Creatinine Est GFR ( Amer) Est GFR (Non-Af Amer) Direct Bilirubin Urine Blood SMALL H - Diagnostic Test Radiology reviewed: Image reviewed - CT head notes no acute abnormality, Reports reviewed Discharge - Discharge Clinical Impression: Metabolic encephalopathy, Hyperkalemia Acute renal failure Qualifiers: Acute renal failure type: unspecified Qualified Code(s): N17.9 - Acute kidney failure, unspecified Condition: Stable Disposition: ADMITTED OBSERVATION Admitting Provider: Kim Referrals: KERVIN CORBETT MD [Primary Care Provider] - Follow up as needed
[2018-01-19 13:48] LABS: ABSOLUTE BASOPHILS # (AUTO) 0.1 10^3/uL (0.0-0.2); ABSOLUTE EOSINOPHILS # (AUTO) 0.4 10^3/uL (0.0-0.6); ABSOLUTE MONOCYTES (AUTO) 0.9 10^3/uL (0.1-1.4); ABSOLUTE NEUT (AUTO) 6.2 10^3/uL (1.7-8.2); BASOPHILS % (AUTO) 1.4 % (0-2); EOSINOPHILS % (AUTO) 4.4 % (0-6); HEMATOCRIT 28.7 % (37.9-51.0); HEMOGLOBIN 9.7 g/dL (13.5-17.0); LYMPHOCYTES % (AUTO) 11.9 % (13-45); MEAN CORPUSCULAR HEMOGLOBIN 29.6 pg (27.0-33.4); MEAN CORPUSCULAR HGB CONC 33.9 g/dL (32.0-36.0); MEAN CORPUSCULAR VOLUME 87 fl (80-97); MONOCYTES % (AUTO) 10.7 % (3-13); PLATELET COUNT 654 10^3/uL (150-450); RED BLOOD COUNT 3.29 10^6/uL (4.35-5.55); RED CELL DISTRIBUTION WIDTH 14.6 % (11.5-14.0); SEGMENTED NEUTROPHILS % (AUTO) 71.6 % (42-78); TOTAL CELLS COUNTED % (AUTO) 100 %; WHITE BLOOD COUNT 8.7 10^3/uL (4.0-10.5)
[2018-01-19 13:52] LABS: INTERNATIONAL RATION (INR) 1.22
[2018-01-19 14:19] LABS: APPEARANCE,URINE CLEAR; BILIRUBIN,URINE NEGATIVE (NEGATIVE); COLOR,URINE YELLOW; GLUCOSE, URINE NEGATIVE (NEGATIVE); KETONES,URINE NEGATIVE (NEGATIVE); LEUKOCYTE ESTERASE,URINE NEGATIVE (NEGATIVE); NITRITE,URINE NEGATIVE (NEGATIVE); PROTEIN,URINE NEGATIVE (NEGATIVE); URINE SPECIFIC GRAVITY 1.011; UROBILINOGEN,URINE NEGATIVE mg/dL (<2.0)
[2018-01-19 14:21] LABS: VENOUS BLOOD BASE EXCESS 0.8 mmol/L; VENOUS BLOOD HCO3 24.6 mmol/L (20-32); VENOUS BLOOD PCO2 36.7 mmHg (35-63); VENOUS BLOOD PH 7.45 (7.30-7.42)
[2018-01-19 14:22] LABS: ALANINE AMINOTRANSFERASE 32 U/L (21-72); ALBUMIN 3.5 g/dL (3.5-5.0); ALKALINE PHOSPHATASE 91 U/L (38-126); ANION GAP 13 (5-19); ASPARTATE AMINO TRANSFERASE 32 U/L (17-59); BILIRUBIN,DIRECT 0.6 mg/dL (0.0-0.4); BILIRUBIN,TOTAL 0.6 mg/dL (0.2-1.3); BLOOD UREA NITROGEN 42 mg/dL (7-20); CARBON DIOXIDE 26 mmol/L (22-30); CHLORIDE 105 mmol/L (98-107); GLUCOSE 110 mg/dL (75-110); POTASSIUM 5.7 mmol/L (3.6-5.0); SODIUM 143.6 mmol/L (137-145); TOTAL PROTEIN 7.7 g/dL (6.3-8.2)
--- NOTE | 2018-01-19 14:26 | RADIOLOGY REPORT (SQ) ---
EXAM DESCRIPTION: CHEST SINGLE VIEW COMPLETED DATE/TIME: 01/19/2018 2:13 pm REASON FOR STUDY: confusion COMPARISON: 11/17/2017. EXAM PARAMETERS: NUMBER OF VIEWS: One view. TECHNIQUE: Single frontal radiographic view of the chest acquired. RADIATION DOSE: NA LIMITATIONS: None. FINDINGS: LUNGS AND PLEURA: No opacities, masses or pneumothorax. No pleural effusion. MEDIASTINUM AND HILAR STRUCTURES: No masses. Contour normal. HEART AND VASCULAR STRUCTURES: Heart normal in size. Normal vasculature. BONES: No acute findings. HARDWARE: Sternotomy wires. Surgical clips in the soft tissues on the right. OTHER: No other significant finding. IMPRESSION: NO ACUTE RADIOGRAPHIC FINDING IN THE CHEST. TECHNICAL DOCUMENTATION: JOB ID: [id number] [employer]- All Rights Reserved Reading location - IP/workstation name: [email or web address]
--- NOTE | 2018-01-19 15:17 | RADIOLOGY REPORT (SQ) ---
EXAM DESCRIPTION: CT HEAD WITHOUT COMPLETED DATE/TIME: 01/19/2018 3:06 pm REASON FOR STUDY: confusion COMPARISON: None. TECHNIQUE: Axial images acquired through the brain without intravenous contrast. Images reviewed wi th bone, brain and subdural windows. Additional sagittal and coronal reconstructions were generated. Images stored on PACS. All CT scanners at this facility use dose modulation, iterative reconstruction, and/or weight based d osing when appropriate to reduce radiation dose to as low as reasonably achievable (ALARA). [facility]: Dose Right [facility]: CareDose [facility]: Dose Right [facility]: Teradose 4D [facility]: [employer] RADIATION DOSE: CT Rad equipment meets quality standard of care and radiation dose reduction techniq ues were employed. CTDIvol: 53.2 mGy. DLP: 991 mGy-cm.mGy. LIMITATIONS: None. FINDINGS: VENTRICLES: Prominent. CEREBRUM: No masses. No hemorrhage. No midline shift. Areas of low density in the white matter mos t likely due to chronic micro-vascular ischemic change. No evidence for acute infarction. CEREBELLUM: No masses. No hemorrhage. No alteration of density. No evidence for acute infarction. EXTRAAXIAL SPACES: Age-related involutional change. No fluid collections. No masses. ORBITS AND GLOBE: No intra- or extraconal masses. Normal contour of globe without masses. CALVARIUM: No fracture. PARANASAL SINUSES: No fluid or mucosal thickening. SOFT TISSUES: No mass or hematoma. OTHER: No other significant finding. IMPRESSION: CHRONIC CHANGES OF ATROPHY AND MICROVASCULAR ISCHEMIA. NO ACUTE PROCESS. EVIDENCE OF ACUTE STROKE: NO. TECHNICAL DOCUMENTATION: JOB ID: [id number] Quality ID # [id number]: Final reports with documentation of one or more dose reduction techniques (e.g., Au tomated exposure control, adjustment of the mA and/or kV according to patient size, use of iterative reconstruction technique) 2010 [employer]- All Rights Reserved Reading location - IP/workstation name: [email or web address]
[2018-01-19] MEDS ORDERED: DIPHENHYDRAMINE HCL 50 MG CAPSULE PO ONE (15:34)
[2018-01-19] MEDS ORDERED: INSULIN REG, HUMAN 100 UNIT/ML 3 ML VIAL (PYX) IV ONE (16:25)
[2018-01-19] MEDS ORDERED: DEXTROSE 50%-WATER 25 GM/50 ML DISP.SYRIN IV ONE (16:25)
[2018-01-19] MEDS ORDERED: SODIUM BICARBONATE 8.4% INJ 50 MEQ/50 ML DISP.SYRIN IV ONE (16:25)
[2018-01-19] MEDS ORDERED: ALBUTEROL SULFATE 0.083% NEB 2.5 MG/3 ML AMPUL NEB ONE (16:25)
--- NOTE | 2018-01-19 22:31 | EKG REPORT ---
SEVERITY:- ABNORMAL ECG - SINUS RHYTHM FIRST DEGREE AV BLOCK NONSPECIFIC REPOL ABNORMALITY, DIFFUSE LEADS : Confirmed by: Carmela Torres MD 19-Jan-2018 22:30:58
[2018-01-19] MEDS ORDERED: TAMSULOSIN HCL 0.4 MG CAP.SR.24H PO ONE (23:00)
[2018-01-19] MEDS: CARVEDILOL 12.5 MG TABLET PO SCH (23:03)
[2018-01-19] MEDS: ATORVASTATIN CALCIUM 10 MG TABLET PO SCH (23:05)
[2018-01-20] MEDS ORDERED: NORMAL SALINE 1000 ML 1,000 ML IV PRN (00:25)
[2018-01-20] MEDS: ZOLPIDEM TARTRATE 5 MG TABLET PO PRN (00:56)
[2018-01-20] MEDS: LANSOPRAZOLE 30 MG TAB.RAP.DR PO SCH (05:08)
[2018-01-20] MEDS: ACETAMINOPHEN 325 MG TABLET PO PRN (05:32)
[2018-01-20 07:09] LABS: HEMATOCRIT 24.6 % (37.9-51.0); HEMOGLOBIN 8.2 g/dL (13.5-17.0); MEAN CORPUSCULAR HEMOGLOBIN 29.2 pg (27.0-33.4); MEAN CORPUSCULAR HGB CONC 33.4 g/dL (32.0-36.0); MEAN CORPUSCULAR VOLUME 87 fl (80-97); PLATELET COUNT 552 10^3/uL (150-450); RED BLOOD COUNT 2.81 10^6/uL (4.35-5.55); RED CELL DISTRIBUTION WIDTH 14.7 % (11.5-14.0); WHITE BLOOD COUNT 9.3 10^3/uL (4.0-10.5)
[2018-01-20 07:35] LABS: ALANINE AMINOTRANSFERASE 31 U/L (21-72); ALBUMIN 3.1 g/dL (3.5-5.0); ALKALINE PHOSPHATASE 89 U/L (38-126); ANION GAP 14 (5-19); ASPARTATE AMINO TRANSFERASE 24 U/L (17-59); BILIRUBIN,DIRECT 0.4 mg/dL (0.0-0.4); BILIRUBIN,TOTAL 0.4 mg/dL (0.2-1.3); BLOOD UREA NITROGEN 33 mg/dL (7-20); CALCIUM 9.4 mg/dL (8.4-10.2); CARBON DIOXIDE 23 mmol/L (22-30); CHLORIDE 111 mmol/L (98-107); CHOLESTEROL 146.86 mg/dL (0-200); GLUCOSE 106 mg/dL (75-110); SODIUM 148.3 mmol/L (137-145); TOTAL PROTEIN 6.7 g/dL (6.3-8.2); TRIGLYCERIDES 115 mg/dL (<150)
[2018-01-20 07:45] LABS: DIRECT LDL 85 mg/dL (<100)
--- NOTE | 2018-01-20 08:24 | PDOC CONSULTATION ---
Consultation Consult Date: 01/20/18 Attending physician:: KERVIN CORBETT Consult reason:: Hematology consult was requested for patient with anemia and thrombocytosis. History of Present Illness Admission Date/PCP: 01/19/18 16:55 KERVIN CORBETT History of Present Illness: ANSHU MCNAMARA is a 72 year old male who presented to the ED with family complaining of confusion. Family is not current available. Patient states that he has just been taking care of every one else and cannot say exactly why he is here or where he is. He states that he was told 1 week ago that he had abnormal blood counts by Dr. Corbett. Otherwise, he is a very poor historian. Past Medical History Cardiac Medical History: Reports: Congestive Heart Failure, Hyperlipidema, Hypertension Denies: Atrial Fibrillation, Coronary Artery Disease, Myocardial Infarction, Peripheral Vascular Disease, Heart Murmur Pulmonary Medical History: Denies: Asthma, Bronchitis, Chronic Obstructive Pulmonary Disease (COPD), Pneumonia, Sleep Apnea, Tuberculosis Neurological Medical History: Denies: Seizures Endocrine Medical History: Denies: Hyperthyroidism, Hypothyroidism GI Medical History: Reports: Gastroesophageal Reflux Disease Denies: Crohn's Disease, Hiatal Hernia Musculoskeltal Medical History: Reports: Arthritis - knees, hips Denies: Fibromyalgia Psychiatric Medical History: Denies: Bipolar Disorder, Depression Hematology: Denies: Anemia, Sickle Cell Disease Past Surgical History Past Surgical History: Reports: Cardiac Catheterization, Coronary Stent, Orthopedic Surgery - left hip fx, Other - Patient tells me he has had an aortic valve replacement. I cannot verify Denies: Appendectomy, Cholecystectomy, Colostomy, Coronary Artery Bypass Graft, Gastric Bypass Surgery, Herniorrhaphy, Tonsillectomy Social History Information Source: [facility] Records Lives with: Spouse/Significant other Smoking Status: Former Smoker Last Time Smoked: Pt. reports approx. 4 years ago Frequency of Alcohol Use: None Hx Recreational Drug Use: No Drugs: None Hx Prescription Drug Abuse: No Past Social History Note: Patient states he has 6 children. Family History Family History: CAD, DM, Hypertension Family History: Patient unable to answer. Parental Family History Reviewed: No Children Family History Reviewed: No Sibling(s) Family History Reviewed.: No Medication/Allergy Home Medications: Duloxetine HCl [Cymbalta] 60 mg PO DAILY 09/23/13 Pantoprazole Sodium [Protonix] 40 mg PO DAILY 11/23/13 Atorvastatin Calcium [Lipitor 10 mg Tablet] 10 mg PO QHS 12/11/13 Clopidogrel Bisulfate [Plavix 75 mg Tablet] 75 mg PO DAILY 04/17/14 Tamsulosin HCl [Flomax] 0.4 mg PO QHS #30 cap.sr.24h 09/06/14 Carvedilol [Coreg 6.25 mg Tablet] 12.5 mg PO Q12 07/28/16 Furosemide [Lasix 20 mg Tablet] 40 mg PO BID 07/28/16 Losartan Potassium 100 mg PO DAILY 07/28/16 Meloxicam [Mobic] 15 mg PO DAILYP PRN 12/22/17 Tramadol HCl 50 mg PO Q6HP PRN 12/22/17 Allergies/Adverse Reactions: No Known Allergies Allergy (Verified 07/24/16 13:59) Review of Systems ROS unobtainable: Due to mental status Physical Exam Vital Signs: Temp Pulse Resp BP Pulse Ox 98.3 F 75 20 129/64 H 96 01/20/18 04:00 01/20/18 04:00 01/20/18 04:00 01/20/18 04:00 01/20/18 04:00 Intake & Output 01/19/18 01/20/18 01/21/18 06:59 06:59 06:59 Intake Total 370 Output Total 350 Balance 20 Weight 113.7 kg Exam: Obese, 72 year old male. He is in bed. Head exam: PRESENT: atraumatic Eye exam: PRESENT: PERRLA Mouth exam: PRESENT: moist, tongue midline, other - White tongue Neck exam: ABSENT: lymphadenopathy, tenderness Respiratory exam: PRESENT: clear to auscultation maral, unlabored Cardiovascular exam: PRESENT: RRR. ABSENT: systolic murmur GI/Abdominal exam: PRESENT: normal bowel sounds, soft. ABSENT: tenderness Extremities exam: PRESENT: other - SCDs in place. ABSENT: pedal edema Musculoskeletal exam: PRESENT: other - arthritic joints in fingers Neurological exam: PRESENT: awake, other - Not oriented. Moves all 4 extremities. Psychiatric exam: PRESENT: other - He is picking and has tremors and myoclonic jerks. His speech is slurred. Focused psych exam: PRESENT: restlessness Skin exam: PRESENT: normal color Results Laboratory Results: 01/20/18 06:47 01/20/18 06:47 WBC 9.3 RBC 2.81 L Hgb 8.2 L Hct 24.6 L MCV 87 MCH 29.2 MCHC 33.4 RDW 14.7 H Plt Count 552 H Impressions: Chest X-Ray 01/19/18 13:19 IMPRESSION: NO ACUTE RADIOGRAPHIC FINDING IN THE CHEST. Head CT 01/19/18 14:39 IMPRESSION: CHRONIC CHANGES OF ATROPHY AND MICROVASCULAR ISCHEMIA. NO ACUTE PROCESS. EVIDENCE OF ACUTE STROKE: NO. Status: Image reviewed by me Assessment & Plan - Diagnosis (1) Metabolic encephalopathy Is this a current diagnosis for this admission?: Yes Plan: Unclear cause currently. Looks like opiod or alcohol induced, but there is no history of this. May also be a vitamin deficiency. Head CT without contrast did not show any stroke. However, if no clear cause is found, I would consider MRI brain with contrast. Also consider LP, although no fever. Infectious etiology is also still a possibility. (2) Anemia Qualifiers: Anemia type: unspecified type Qualified Code(s): D64.9 - Anemia, unspecified Is this a current diagnosis for this admission?: Yes Plan: This is normocytic and chronic. He has had iron deficiency in the past, but unsure if he has a history of GI bleed. Unsure if he has had colonoscopy or EGD. I will check anemia panel today and watch HGB. May transfuse if indicated. I will also start B complex vitamin to see if this helps his anemia and confusion. (3) Thrombocytosis Is this a current diagnosis for this admission?: Yes Plan: Most likely reactive. If this does not resolve over the next few days, then I will consider further work-up. He is on DVT prophylaxis. (4) Acute renal failure Qualifiers: Acute renal failure type: unspecified Qualified Code(s): N17.9 - Acute kidney failure, unspecified Is this a current diagnosis for this admission?: Yes Plan: Most likely due to some dehydration. He remains on IV NS and Lasix. Await today's labs. - Plan Summary Plan Summary: Thank you for this consultation. I will continue to follow him with you. Please feel free to call me with any questions or concerns.
[2018-01-20 08:26] LABS: POTASSIUM 4.8 mmol/L (3.6-5.0)
[2018-01-20 08:31] LABS: ABSOLUTE RETICS # 0.055 10^6/uL (0.028-0.122); RETICULOCYTE COUNT (AUTO) 1.94 % (0.66-2.85)
[2018-01-20 08:42] LABS: IRON(TIBC) 26.2 ug/dL (49-181)
[2018-01-20] MEDS: DOCUSATE SODIUM 100 MG CAPSULE PO SCH ×2 (09:37→17:21)
[2018-01-20] MEDS: FUROSEMIDE 40 MG TABLET PO SCH ×2 (09:37→17:21)
[2018-01-20] MEDS: DULOXETINE HCL 30 MG CAPSULE.DR PO SCH (09:37)
[2018-01-20] MEDS: ASPIRIN 81 MG TABLET, CHEWABLE PO SCH (09:38)
[2018-01-20] MEDS: CARVEDILOL 12.5 MG TABLET PO SCH ×2 (09:38→21:29)
[2018-01-20] MEDS: ENOXAPARIN SODIUM INJ 30 MG/0.3 ML DISP.SYRIN SUBCUT SCH (09:38)
[2018-01-20] MEDS: CLOPIDOGREL BISULFATE 75 MG TABLET PO SCH (09:38)
[2018-01-20] MEDS: LOSARTAN POTASSIUM 50 MG TABLET PO SCH (11:14)
[2018-01-20] MEDS: CYANOCOBALAMIN/FA/PYRIDOXINE TABLET PO SCH (11:14)
--- NOTE | 2018-01-20 13:00 | PDOC H&P ---
History of Present Illness Admission Date/PCP: 01/19/18 16:55 KERVIN CORBETT Patient complains of: Hx of worsening confusion, hallucinations for the past 2 weeks History of Present Illness: ANSHU MCNAMARA is a 72 year old male with hx of HTN/Hyperlipidemia/ CHF/ CAD s.p stentsx2/Mitral valve regurgitation s.p tissue valve replacement/ CKD stage 3/GERD/BPH/Osteoarthritis/Fe. def. anemia/Pre diabetes/Vitamin D def/Depression , who had left knee arthroplasty by Dr Arzate about a month ago. According to his , he started having confusion shortly after discharge from hospital and has been worse in the past 2 weeks. He also has visual and tactile hallucinations. His appetite has not not been good, but no fever, cough, nausea/ vomiting, cough, chest pain, dyspnea, headache, dysuria, frequency, abd. pain, diarrhea. On account of the worsening of these symptoms, pt was brought to ER for evaluation. Past Medical History Cardiac Medical History: Reports: Congestive Heart Failure, Hyperlipidema, Hypertension Denies: Atrial Fibrillation, Coronary Artery Disease, Myocardial Infarction, Peripheral Vascular Disease, Heart Murmur Pulmonary Medical History: Denies: Asthma, Bronchitis, Chronic Obstructive Pulmonary Disease (COPD), Pneumonia, Sleep Apnea, Tuberculosis Neurological Medical History: Denies: Seizures Endocrine Medical History: Denies: Hyperthyroidism, Hypothyroidism GI Medical History: Reports: Gastroesophageal Reflux Disease Denies: Crohn's Disease, Hiatal Hernia Musculoskeltal Medical History: Reports: Arthritis - knees, hips Denies: Fibromyalgia Psychiatric Medical History: Denies: Bipolar Disorder, Depression Hematology: Denies: Anemia, Sickle Cell Disease Past Surgical History Past Surgical History: Reports: Cardiac Catheterization, Coronary Stent, Orthopedic Surgery - left hip fx, Other - Patient tells me he has had an aortic valve replacement. I cannot verify Denies: Appendectomy, Cholecystectomy, Colostomy, Coronary Artery Bypass Graft, Gastric Bypass Surgery, Herniorrhaphy, Tonsillectomy Social History Lives with: Spouse/Significant other Smoking Status: Former Smoker Last Time Smoked: Pt. reports approx. 4 years ago Frequency of Alcohol Use: None Hx Recreational Drug Use: No Drugs: None Hx Prescription Drug Abuse: No Family History Family History: CAD, DM, Hypertension Parental Family History Reviewed: Yes Children Family History Reviewed: Yes Sibling(s) Family History Reviewed.: Yes Medication/Allergy Home Medications: Duloxetine HCl [Cymbalta] 60 mg PO DAILY 09/23/13 Pantoprazole Sodium [Protonix] 40 mg PO DAILY 11/23/13 Atorvastatin Calcium [Lipitor 10 mg Tablet] 10 mg PO QHS 12/11/13 Clopidogrel Bisulfate [Plavix 75 mg Tablet] 75 mg PO DAILY 04/17/14 Tamsulosin HCl [Flomax] 0.4 mg PO QHS #30 cap.sr.24h 09/06/14 Carvedilol [Coreg 6.25 mg Tablet] 12.5 mg PO Q12 07/28/16 Furosemide [Lasix 20 mg Tablet] 40 mg PO BID 07/28/16 Losartan Potassium 100 mg PO DAILY 07/28/16 Meloxicam [Mobic] 15 mg PO DAILYP PRN 12/22/17 Tramadol HCl 50 mg PO Q6HP PRN 12/22/17 Allergies/Adverse Reactions: No Known Allergies Allergy (Verified 07/24/16 13:59) Review of Systems All systems: as per PMH Constitutional: PRESENT: as per HPI Eyes: PRESENT: as per HPI Ears: PRESENT: as per HPI Nose, Mouth, and Throat: PRESENT: as per HPI Breasts: PRESENT: as per HPI Cardiovascular: PRESENT: as per HPI Respiratory: PRESENT: as per HPI Gastrointestinal: PRESENT: as per HPI, constipation Genitourinary: PRESENT: as per HPI Musculoskeletal: PRESENT: as per HPI Neurological: PRESENT: confusion, weakness Psychiatric: PRESENT: hallucinations Endocrine: PRESENT: as per HPI Physical Exam Vital Signs: Temp Pulse Resp BP Pulse Ox 98.1 F 70 22 H 149/64 H 98 01/20/18 12:17 01/20/18 12:17 01/20/18 12:17 01/20/18 12:17 01/20/18 12:17 Intake & Output 01/19/18 01/20/18 01/21/18 06:59 06:59 06:59 Intake Total 370 Output Total 350 Balance 20 Weight 113.7 kg General appearance: PRESENT: no acute distress, obese, well-developed, well- nourished Head exam: PRESENT: atraumatic, normocephalic Eye exam: PRESENT: EOMI, PERRLA Ear exam: PRESENT: normal external ear exam, TM's normal bilaterally Mouth exam: PRESENT: dry mucosa, neck supple, tongue midline Neck exam: PRESENT: full ROM Respiratory exam: PRESENT: clear to auscultation maral, symmetrical Cardiovascular exam: PRESENT: +S1, +S2 Pulses: PRESENT: +2 pedal pulses bilateral GI/Abdominal exam: PRESENT: normal bowel sounds, soft Rectal exam: PRESENT: deferred Musculoskeletal exam: PRESENT: full ROM Neurological exam: PRESENT: alert, oriented to person Psychiatric exam: PRESENT: anxious Results Laboratory Results: 01/20/18 06:47 01/20/18 06:47 01/20/18 01/20/18 01/20/18 06:47 06:47 06:47 WBC 9.3 RBC 2.81 L Hgb 8.2 L Hct 24.6 L MCV 87 MCH 29.2 MCHC 33.4 RDW 14.7 H Plt Count 552 H Retic Count (auto) Absolute Retic Sodium 148.3 H Potassium 4.8 Chloride 111 H Carbon Dioxide 23 Anion Gap 14 BUN 33 H Creatinine 1.96 H Est GFR ( Amer) 41 L Est GFR (Non-Af Amer) 34 L Glucose 106 Calcium 9.4 Iron TIBC % Saturation Ferritin Total Bilirubin 0.4 AST 24 ALT 31 Alkaline Phosphatase 89 Total Protein 6.7 Albumin 3.1 L Triglycerides 115 Cholesterol 146.86 LDL Cholesterol Direct 85 VLDL Cholesterol 23.0 HDL Cholesterol 19 L Prostate Specific Ag 3.640 Vitamin B12 Folate TSH 0.91 01/20/18 01/20/18 06:47 06:47 WBC RBC Hgb Hct MCV MCH MCHC RDW Plt Count Retic Count (auto) 1.94 Absolute Retic 0.055 Sodium Potassium Chloride Carbon Dioxide Anion Gap BUN Creatinine Est GFR ( Amer) Est GFR (Non-Af Amer) Glucose Calcium Iron 26.2 L TIBC 222 L % Saturation 12 Ferritin 554.00 H Total Bilirubin AST ALT Alkaline Phosphatase Total Protein Albumin Triglycerides Cholesterol LDL Cholesterol Direct VLDL Cholesterol HDL Cholesterol Prostate Specific Ag Vitamin B12 492.0 Folate 11.40 TSH Impressions: Chest X-Ray 01/19/18 13:19 IMPRESSION: NO ACUTE RADIOGRAPHIC FINDING IN THE CHEST. Head CT 01/19/18 14:39 IMPRESSION: CHRONIC CHANGES OF ATROPHY AND MICROVASCULAR ISCHEMIA. NO ACUTE PROCESS. EVIDENCE OF ACUTE STROKE: NO. Assessment & Plan - Diagnosis (1) Altered mental status, unspecified Qualifiers: Altered mental status type: delirium Qualified Code(s): R41.0 - Disorientation, unspecified Is this a current diagnosis for this admission?: Yes Plan: Ct with 4 hourly neurochecks, seizure/falls precautions; Ct head is normal; no evidence of infection presently; we may get MRI head with contrast. (2) Metabolic encephalopathy Is this a current diagnosis for this admission?: Yes Plan: Monitor pt closely; 4 hourly neurochecks; seizure/fall precautions; Optimize hydration with IV fluids. (3) Acute kidney injury superimposed on CKD Is this a current diagnosis for this admission?: Yes Plan: Ct with IV fluids normal saline cautiously at 75 c/hr due to history of CHF. Strict input/out put chart; Daily weight; Avoid all nephrotoxics. Monitor chemistries daily. (4) Hyperkalemia Is this a current diagnosis for this admission?: Yes Plan: Pt had 5% dextrose in water with Insulin and Albuterol nebs at ER; monitor Chemistries daily ; may add Kayexalate 30 g PO or rectally. (5) Thrombocytosis Is this a current diagnosis for this admission?: Yes Plan: This is possibly reactive. F/u hematology consult with Dr Kumar. (6) Hypertension Qualifiers: Hypertension type: unspecified Qualified Code(s): I10 - Essential (primary ) hypertension Is this a current diagnosis for this admission?: Yes Plan: Ct with Losartan 100 mg qd po; Coreg 12.5 mg BID po; 2 g sodium diet. (7) Hyperlipidemia Qualifiers: Hyperlipidemia type: mixed hyperlipidemia Qualified Code(s): E78.2 - Mixed hyperlipidemia Is this a current diagnosis for this admission?: Yes Plan: Ct with Atorvastatin 10 mg qhs po; 200 mg cholesterol diet. (8) Diastolic CHF Qualifiers: Heart failure chronicity: chronic Qualified Code(s): I50.32 - Chronic diastolic (congestive) heart failure Is this a current diagnosis for this admission?: Yes Plan: Ct with Lasix 40 mg BID PO; Hold KCL due to hyperkalemia. Strict input/out put chart; daily weight;monitor chemistries daily. (9) CAD (coronary artery disease) Is this a current diagnosis for this admission?: Yes Plan: Ct with Plavix 75 mg qd po; Aspirin 81 mg qd po, cardiac diet. (10) Iron (Fe) deficiency anemia Qualifiers: Iron deficiency anemia type: unspecified iron deficiency Qualified Code(s) : D50.9 - Iron deficiency anemia, unspecified Is this a current diagnosis for this admission?: Yes Plan: Ct with Ferrous sulfate 325 mg qd po; daily CBC; F/u hematology consult with Dr Kumar. (11) Reflux esophagitis Is this a current diagnosis for this admission?: Yes Plan: Ct with Prevacid 30 mg qd po; Hold Protonix since it is not in our formulary. (12) BPH (benign prostatic hyperplasia) Qualifiers: Lower urinary tract symptom detail: unspecified Is this a current diagnosis for this admission?: Yes Plan: Ct with Flomax 0.4 mg qd po. (13) Arthritis of left knee Is this a current diagnosis for this admission?: Yes Plan: Ct with Tylenol 650 mg q6 po prn. (14) Depression Is this a current diagnosis for this admission?: Yes Plan: Ct with Cymbalta 60 mg qd po. (15) Constipation Qualifiers: Constipation type: unspecified constipation type Qualified Code(s): K59.00 - Constipation, unspecified Is this a current diagnosis for this admission?: Yes Plan: Ct with Colace 100 mg BID po prn. (16) DVT prophylaxis Is this a current diagnosis for this admission?: Yes Plan: Ct with Lovenox 30 mg qd subcut; SCD. - Time Time Spent: 30 to 50 Minutes Medications reviewed and adjusted accordingly: Yes Within: within 72 hours - Inpatient Certification Medical Necessity: Failure to Improve With Outpatient Therapy, Significant Comorbidiites Make Outpatient Treatment Too Risky, Need Close Monitoring Due to Risk of Patient Decompensation, Need For IV Fluids, Need for Neurological Checks , Risk of Diagnosis Which Will Require Inpatient Eval/Care/Monitoring
[2018-01-20] MEDS: TAMSULOSIN HCL 0.4 MG CAP.SR.24H PO SCH (17:21)
[2018-01-20] MEDS: ATORVASTATIN CALCIUM 10 MG TABLET PO SCH (21:29)
[2018-01-21] MEDS: LANSOPRAZOLE 30 MG TAB.RAP.DR PO SCH (05:43)
--- NOTE | 2018-01-21 07:25 | PDOC PROGRESS REPORT ---
Subjective Progress Note for:: 01/21/18 Subjective:: Patient's speech is much clearer this morning. He still states that he just got overwhelmed at home and needed a rest. ROS: No dyspnea. He denies pain. Good appetite. He would like to get up and walk today. Reason For Visit: THROMBOCYTOSIS,ACUTE RENAL FAILURE,METABOLIC Physical Exam Vital Signs: Temp Pulse Resp BP Pulse Ox 99.0 F 68 18 161/54 H 98 01/21/18 04:08 01/21/18 04:08 01/21/18 04:08 01/21/18 04:08 01/21/18 04:08 Intake & Output 01/20/18 01/21/18 01/22/18 06:59 06:59 06:59 Intake Total 370 2400 Output Total 350 675 Balance 20 1725 Weight 113.7 kg 114.2 kg General appearance: PRESENT: no acute distress Exam: Overweight, male. Head exam: PRESENT: atraumatic Eye exam: PRESENT: PERRLA Respiratory exam: PRESENT: clear to auscultation maral, unlabored Cardiovascular exam: PRESENT: RRR GI/Abdominal exam: PRESENT: soft. ABSENT: tenderness Extremities exam: PRESENT: other - SCDs in place. ABSENT: pedal edema Neurological exam: PRESENT: alert, awake Psychiatric exam: PRESENT: appropriate affect, other - Still with some picking, but improved. Focused psych exam: ABSENT: psychomotor agitation Skin exam: PRESENT: normal color Results Laboratory Results: 01/20/18 06:47 01/20/18 06:47 01/20/18 01/20/18 01/20/18 06:47 06:47 06:47 Retic Count (auto) 1.94 Absolute Retic 0.055 Sodium 148.3 H Potassium 4.8 Chloride 111 H Carbon Dioxide 23 Anion Gap 14 BUN 33 H Creatinine 1.96 H Est GFR ( Amer) 41 L Est GFR (Non-Af Amer) 34 L Glucose 106 Calcium 9.4 Iron TIBC % Saturation Ferritin Total Bilirubin 0.4 AST 24 ALT 31 Alkaline Phosphatase 89 Total Protein 6.7 Albumin 3.1 L Triglycerides 115 Cholesterol 146.86 LDL Cholesterol Direct 85 VLDL Cholesterol 23.0 HDL Cholesterol 19 L Prostate Specific Ag 3.640 Vitamin B12 Folate TSH 0.91 01/20/18 06:47 Retic Count (auto) Absolute Retic Sodium Potassium Chloride Carbon Dioxide Anion Gap BUN Creatinine Est GFR ( Amer) Est GFR (Non-Af Amer) Glucose Calcium Iron 26.2 L TIBC 222 L % Saturation 12 Ferritin 554.00 H Total Bilirubin AST ALT Alkaline Phosphatase Total Protein Albumin Triglycerides Cholesterol LDL Cholesterol Direct VLDL Cholesterol HDL Cholesterol Prostate Specific Ag Vitamin B12 492.0 Folate 11.40 TSH Impressions: Chest X-Ray 01/19/18 13:19 IMPRESSION: NO ACUTE RADIOGRAPHIC FINDING IN THE CHEST. Head CT 01/19/18 14:39 IMPRESSION: CHRONIC CHANGES OF ATROPHY AND MICROVASCULAR ISCHEMIA. NO ACUTE PROCESS. EVIDENCE OF ACUTE STROKE: NO. Assessment & Plan - Diagnosis (1) Metabolic encephalopathy Is this a current diagnosis for this admission?: Yes Plan: Improving. Still unclear as to the cause. (2) Anemia Qualifiers: Anemia type: unspecified type Qualified Code(s): D64.9 - Anemia, unspecified Is this a current diagnosis for this admission?: Yes Plan: His iron levels show anemia of chronic disease, but oral iron was started. I would repeat Ferritin level in about 4 weeks to make sure this should be continued. He was also started on B12 and Folate. (3) Thrombocytosis Is this a current diagnosis for this admission?: Yes Plan: Await repeat CBC in AM. Was improved yesterday. (4) Acute renal failure Qualifiers: Acute renal failure type: unspecified Qualified Code(s): N17.9 - Acute kidney failure, unspecified Is this a current diagnosis for this admission?: Yes - Plan Summary Plan Summary: I will continue to follow. Patient was discussed with Dr. Alvarez yesterday.
--- NOTE | 2018-01-21 10:24 | RADIOLOGY REPORT (SQ) ---
EXAM DESCRIPTION: MRI HEAD WITHOUT COMPLETED DATE/TIME: 01/21/2018 10:04 am REASON FOR STUDY: AMS COMPARISON: Brain CT scan dated 01/19/2018 TECHNIQUE: Multiplanar imaging includes non-contrasted T1, T2, FLAIR, and Diffusion with ADC map seq uences. Images stored on PACS. LIMITATIONS: Study is limited due to motion artifact. FINDINGS: ANATOMY: No anomalies. Normal vascular flow voids. Pituitary fossa normal. CSF SPACES: Normal in size and contour. No hemorrhage. CEREBRUM: A few high-signal intensity lesions scattered throughout the white matter on FLAIR imaging with distribution suggesting chronic micro-vascular ischemic change. Sulci and gyri normal in size a nd contour. No evidence of hemorrhage, mass or extraaxial fluid collection. POSTERIOR FOSSA: No signal alteration. No hemorrhage. No edema, masses or mass effect. Internal darrel tory canals, cerebello-pontine angles, mastoids normal. DIFFUSION: Negative for acute or sub-acute infarction. ORBITS: No masses. Globes normal. PARANASAL SINUSES: No fluid levels. Mucosa normal. OTHER: No other significant finding. IMPRESSION: Limited study as noted above. MINIMAL MICROVASCULAR ISCHEMIC CHANGE. OTHERWISE NORMAL STUDY. EVIDENCE OF ACUTE STROKE: NO. TECHNICAL DOCUMENTATION: JOB ID: [id number] [employer]- All Rights Reserved Reading location - IP/workstation name: [facility]
[2018-01-21] MEDS: ENOXAPARIN SODIUM INJ 30 MG/0.3 ML DISP.SYRIN SUBCUT SCH (10:27)
[2018-01-21] MEDS: ASPIRIN 81 MG TABLET, CHEWABLE PO SCH (10:27)
[2018-01-21] MEDS: LOSARTAN POTASSIUM 50 MG TABLET PO SCH (10:27)
[2018-01-21] MEDS: FUROSEMIDE 40 MG TABLET PO SCH ×2 (10:27→19:00)
[2018-01-21] MEDS: DULOXETINE HCL 30 MG CAPSULE.DR PO SCH (10:27)
[2018-01-21] MEDS: FERROUS SULFATE 325 MG TABLET PO SCH (10:27)
[2018-01-21] MEDS: DOCUSATE SODIUM 100 MG CAPSULE PO SCH ×2 (10:27→19:00)
[2018-01-21] MEDS: CLOPIDOGREL BISULFATE 75 MG TABLET PO SCH (10:27)
[2018-01-21] MEDS: CARVEDILOL 12.5 MG TABLET PO SCH ×2 (10:27→21:23)
[2018-01-21] MEDS: CYANOCOBALAMIN/FA/PYRIDOXINE TABLET PO SCH (10:28)
[2018-01-21 10:41] LABS: ABSOLUTE BASOPHILS # (AUTO) 0.1 10^3/uL (0.0-0.2); ABSOLUTE EOSINOPHILS # (AUTO) 0.3 10^3/uL (0.0-0.6); ABSOLUTE LYMPHOCYTES (AUTO) 0.9 10^3/uL (0.5-4.7); ABSOLUTE MONOCYTES (AUTO) 1.4 10^3/uL (0.1-1.4); ABSOLUTE NEUT (AUTO) 9.4 10^3/uL (1.7-8.2); BASOPHILS % (AUTO) 1.2 % (0-2); EOSINOPHILS % (AUTO) 2.4 % (0-6); HEMATOCRIT 26.6 % (37.9-51.0); HEMOGLOBIN 8.8 g/dL (13.5-17.0); LYMPHOCYTES % (AUTO) 7.7 % (13-45); MEAN CORPUSCULAR HEMOGLOBIN 28.7 pg (27.0-33.4); MEAN CORPUSCULAR HGB CONC 33.2 g/dL (32.0-36.0); MEAN CORPUSCULAR VOLUME 87 fl (80-97); MONOCYTES % (AUTO) 11.6 % (3-13); PLATELET COUNT 567 10^3/uL (150-450); RED BLOOD COUNT 3.07 10^6/uL (4.35-5.55); RED CELL DISTRIBUTION WIDTH 14.7 % (11.5-14.0); SEGMENTED NEUTROPHILS % (AUTO) 77.1 % (42-78); TOTAL CELLS COUNTED % (AUTO) 100 %; WHITE BLOOD COUNT 12.2 10^3/uL (4.0-10.5)
[2018-01-21 11:03] LABS: ALANINE AMINOTRANSFERASE 29 U/L (21-72); ALBUMIN 3.3 g/dL (3.5-5.0); ALKALINE PHOSPHATASE 90 U/L (38-126); ANION GAP 14 (5-19); ASPARTATE AMINO TRANSFERASE 28 U/L (17-59); BILIRUBIN,DIRECT 0.4 mg/dL (0.0-0.4); BILIRUBIN,TOTAL 0.6 mg/dL (0.2-1.3); BLOOD UREA NITROGEN 23 mg/dL (7-20); CALCIUM 9.5 mg/dL (8.4-10.2); CARBON DIOXIDE 24 mmol/L (22-30); CHLORIDE 105 mmol/L (98-107); GLUCOSE 107 mg/dL (75-110); POTASSIUM 4.6 mmol/L (3.6-5.0); SODIUM 142.6 mmol/L (137-145)
--- NOTE | 2018-01-21 14:46 | RADIOLOGY REPORT (SQ) ---
EXAM DESCRIPTION: U/S EXTREMITY NONVASCULAR LTD COMPLETED DATE/TIME: 01/21/2018 2:21 pm REASON FOR STUDY: suspect IV catheter still in arm COMPARISON: None TECHNIQUE: Dynamic and static grayscale images acquired of the localized site of clinical concern an d recorded on PACS. Additional selected color Doppler and spectral images recorded. SITE OF CONCERN: Right forearm LIMITATIONS: Study is limited due to the patient's inability to hold still FINDINGS: SKIN AND SUBCUTANEOUS TISSUES: In the superficial soft tissues a linear structure is ident ified which is nonvascular and is consistent with the clinical suspicions for an IV catheter remainin g in the soft tissues. DEEP SOFT TISSUES/MUSCLES: No masses. No fluid collections. No edema. VASCULAR: No increased or decreased vascularity. No occlusions. OTHER: No other significant finding. IMPRESSION: Linear structure in the superficial soft tissues which is nonvascular and is consistent with the clinical suspicions for an IV catheter remaining in the soft tissues. Clinical correlation is recommended. Other findings as noted above TECHNICAL DOCUMENTATION: JOB ID: [id number] [employer]- All Rights Reserved Reading location - IP/workstation name: [facility]
--- NOTE | 2018-01-21 16:30 | PDOC PROGRESS REPORT ---
Subjective Progress Note for:: 01/21/18 Subjective:: His mental status has improved today and he is much aware of where he is and why he is here. He pulled out the IV and the IV catheter was left in soft tissues and we had ultrasound of the extremity that confirmed it. He had MRI head with contrast that did not show any significant abnormality. Reason For Visit: THROMBOCYTOSIS,ACUTE RENAL FAILURE,METABOLIC Physical Exam Vital Signs: Temp Pulse Resp BP Pulse Ox 99.0 F 92 20 147/82 H 98 01/21/18 12:00 01/21/18 14:00 01/21/18 12:00 01/21/18 12:00 01/21/18 12:00 Intake & Output 01/20/18 01/21/18 01/22/18 06:59 06:59 06:59 Intake Total 370 2400 Output Total 350 675 Balance 20 1725 Weight 113.7 kg 114.2 kg General appearance: PRESENT: no acute distress, cooperative, obese, well- developed, well-nourished Head exam: PRESENT: atraumatic, normocephalic Eye exam: PRESENT: EOMI, PERRLA Ear exam: PRESENT: normal external ear exam, TM's normal bilaterally Mouth exam: PRESENT: neck supple, tongue midline Neck exam: PRESENT: full ROM Respiratory exam: PRESENT: clear to auscultation maral, symmetrical Cardiovascular exam: PRESENT: +S1, +S2 Pulses: PRESENT: +2 pedal pulses bilateral GI/Abdominal exam: PRESENT: normal bowel sounds, soft Rectal exam: PRESENT: deferred Extremities exam: PRESENT: full ROM Neurological exam: PRESENT: alert, oriented to person, oriented to place Psychiatric exam: PRESENT: normal mood Results Laboratory Results: 01/21/18 10:32 01/21/18 10:32 01/21/18 01/21/18 10:32 10:32 WBC 12.2 H RBC 3.07 L Hgb 8.8 L Hct 26.6 L MCV 87 MCH 28.7 MCHC 33.2 RDW 14.7 H Plt Count 567 H Seg Neutrophils % 77.1 Lymphocytes % 7.7 L Monocytes % 11.6 Eosinophils % 2.4 Basophils % 1.2 Absolute Neutrophils 9.4 H Absolute Lymphocytes 0.9 Absolute Monocytes 1.4 Absolute Eosinophils 0.3 Absolute Basophils 0.1 Sodium 142.6 Potassium 4.6 Chloride 105 Carbon Dioxide 24 Anion Gap 14 BUN 23 H Creatinine 1.69 H Est GFR ( Amer) 49 L Est GFR (Non-Af Amer) 40 L Glucose 107 Calcium 9.5 Total Bilirubin 0.6 AST 28 ALT 29 Alkaline Phosphatase 90 Total Protein 7.0 Albumin 3.3 L Impressions: Chest X-Ray 01/19/18 13:19 IMPRESSION: NO ACUTE RADIOGRAPHIC FINDING IN THE CHEST. Head CT 01/19/18 14:39 IMPRESSION: CHRONIC CHANGES OF ATROPHY AND MICROVASCULAR ISCHEMIA. NO ACUTE PROCESS. EVIDENCE OF ACUTE STROKE: NO. Extremity Ultrasound 01/21/18 00:00 IMPRESSION: Linear structure in the superficial soft tissues which is nonvascular and is consistent with the clinical suspicions for an IV catheter remaining in the soft tissues. Clinical correlation is recommended. Other findings as noted above Head MRI 01/21/18 00:00 IMPRESSION: Limited study as noted above. MINIMAL MICROVASCULAR ISCHEMIC CHANGE. OTHERWISE NORMAL STUDY. EVIDENCE OF ACUTE STROKE: NO. Assessment & Plan - Diagnosis (1) Altered mental status, unspecified Qualifiers: Altered mental status type: delirium Qualified Code(s): R41.0 - Disorientation, unspecified Is this a current diagnosis for this admission?: Yes Plan: Ct with 4 hourly neurochecks, seizure/falls precautions; CT head was normal; no evidence of infection presently. MRI head was normal.. (2) Metabolic encephalopathy Is this a current diagnosis for this admission?: Yes Plan: Monitor pt closely; 4 hourly neurochecks; seizure/fall precautions; Optimize hydration with IV fluids. (3) Acute kidney injury superimposed on CKD Is this a current diagnosis for this admission?: Yes Plan: Ct with IV fluids normal saline cautiously at 75 c/hr due to history of CHF. Strict input/out put chart; Daily weight; Avoid all nephrotoxics. Monitor chemistries daily. (4) Hyperkalemia Is this a current diagnosis for this admission?: Yes Plan: It is resolved.Pt had 5% dextrose in water with Insulin and Albuterol nebs at ER; monitor Chemistries daily . (5) Thrombocytosis Is this a current diagnosis for this admission?: Yes Plan: This is possibly reactive. F/u hematology consult with Dr Kumar. (6) Hypertension Qualifiers: Hypertension type: unspecified Qualified Code(s): I10 - Essential (primary ) hypertension Is this a current diagnosis for this admission?: Yes Plan: Ct with Losartan 100 mg qd po; Coreg 12.5 mg BID po; 2 g sodium diet. (7) Hyperlipidemia Qualifiers: Hyperlipidemia type: mixed hyperlipidemia Qualified Code(s): E78.2 - Mixed hyperlipidemia Is this a current diagnosis for this admission?: Yes Plan: Ct with Atorvastatin 10 mg qhs po; 200 mg cholesterol diet. (8) Diastolic CHF Qualifiers: Heart failure chronicity: chronic Qualified Code(s): I50.32 - Chronic diastolic (congestive) heart failure Is this a current diagnosis for this admission?: Yes Plan: Ct with Lasix 40 mg BID PO; Hold KCL due to hyperkalemia. Strict input/out put chart; daily weight;monitor chemistries daily. (9) CAD (coronary artery disease) Is this a current diagnosis for this admission?: Yes Plan: Ct with Plavix 75 mg qd po; Aspirin 81 mg qd po, cardiac diet. (10) Iron (Fe) deficiency anemia Qualifiers: Iron deficiency anemia type: unspecified iron deficiency Qualified Code(s) : D50.9 - Iron deficiency anemia, unspecified Is this a current diagnosis for this admission?: Yes Plan: Ct with Ferrous sulfate 325 mg qd po; daily CBC; F/u hematology consult with Dr Kumar. (11) Reflux esophagitis Is this a current diagnosis for this admission?: Yes Plan: Ct with Prevacid 30 mg qd po; Hold Protonix since it is not in our formulary. (12) BPH (benign prostatic hyperplasia) Qualifiers: Lower urinary tract symptom detail: unspecified Is this a current diagnosis for this admission?: Yes Plan: Ct with Flomax 0.4 mg qd po. (13) Arthritis of left knee Is this a current diagnosis for this admission?: Yes Plan: Ct with Tylenol 650 mg q6 po prn. (14) Depression Is this a current diagnosis for this admission?: Yes Plan: Ct with Cymbalta 60 mg qd po. (15) Constipation Qualifiers: Constipation type: unspecified constipation type Qualified Code(s): K59.00 - Constipation, unspecified Is this a current diagnosis for this admission?: Yes Plan: Ct with Colace 100 mg BID po prn. (16) DVT prophylaxis Is this a current diagnosis for this admission?: Yes Plan: Ct with Lovenox 30 mg qd subcut; SCD.
[2018-01-21] MEDS ORDERED: RISPERIDONE 0.25 MG TABLET PO ONE (18:30)
[2018-01-21] MEDS ORDERED: LIDOCAINE 1% INJ-PF (10 MG/ML) 30 ML SDV ONE (18:55)
[2018-01-21] MEDS: TAMSULOSIN HCL 0.4 MG CAP.SR.24H PO SCH (19:01)
--- NOTE | 2018-01-21 20:28 | RADIOLOGY REPORT (SQ) ---
EXAM DESCRIPTION: FOREARM RIGHT COMPLETED DATE/TIME: 01/21/2018 8:04 pm REASON FOR STUDY: Foreign body COMPARISON: None. NUMBER OF VIEWS: Two views. TECHNIQUE: Two radiographic images acquired of the right forearm, including elbow and wrist in at le ast one projection. LIMITATIONS: None. FINDINGS: MINERALIZATION: Osteopenia. BONES: No acute fracture. No worrisome bone lesions. SOFT TISSUES: No obvious swelling or radiopaque foreign body. OTHER: No other significant finding. IMPRESSION: NO ACUTE OSSEOUS ABNORMALITY. NO RADIOPAQUE FOREIGN BODY. IF SYMPTOMS PERSIST CONSIDER FOLLOW-UP ULTRASOUND IN 24-48 HOURS FOR REASSESSMENT. TECHNICAL DOCUMENTATION: JOB ID: [id number] [employer]- All Rights Reserved Reading location - IP/workstation name: [email or web address]
--- NOTE | 2018-01-21 20:29 | Operative Report ---
Operative Report DATE OF SURGERY: 01/21/18 PREOPERATIVE DIAGNOSIS: Rule out retained foreign body right arm POSTOPERATIVE DIAGNOSIS: No clinical, radiographic or ultrasonographic evidence of retained foreign body right arm OPERATION: 1. Focused ultrasound of the right upper extremity. 2.Radiographic interpretation of multiple images right upper extremity SURGEON: RAMIREZ GALLEGO ANESTHESIA: Other - None TISSUE REMOVED OR ALTERED: None COMPLICATIONS: None ESTIMATED BLOOD LOSS: 9 INTRAOPERATIVE FINDINGS: None PROCEDURE: As a surgeon organizational development consultant, I was consulted to remove a foreign body from the right arm. According to the patient's nurse, the patient discontinued his own IV, and unwitnessed event, and was discovered with blood all over the room and the IV out of his arm. Exactly why the nurse and/or staff felt there was a retained foreign body remains unclear; by report the above the 22-gauge Jelco was out of the patient but the luminal portion of the Jelco was still in the patient. The site of the IV was the right forearm approximately 12 cm distal to the elbow on the volar surface. On physical exam there was evidence of a recent IV entrance site over the target tissue. There was subtle firmness just proximal to this. There was no evidence of obvious palpable foreign body, infection, bleeding etc. I perform my own focused ultrasound of the right upper extremity using a variable frequency linear transducer. Multiple angles and views were obtained at multiple depths. There was a 2 cm segment of the median cubital vein with some internal echoes, but the vein was patent proximally distally. I could not definitively identify a foreign body anywhere in the forearm in the vicinity of the reported incident. I reviewed the ultrasound performed earlier by the radiology department, and interpreted by Dr. Florentino barahona. This was interpreted having a foreign body consistent with a IV fragment in the superficial soft tissue. I reviewed all of the images series and I was unable to see any foreign body; only some internal echoes in a segment of the median cubital vein is seen by my ultrasound I went over the ultra sound results performed by the radiology department with Dr. Tyrone brady, reporting from [place]. He could not see a foreign body either. I therefore performed 2 views AP and lateral of the right upper extremity. Performed at bedside. My interpretation of both of these views was there was no evidence of retained foreign body in the right upper extremity. Therefore I came to the conclusion that there was no retained foreign body in the right upper extremity based on serial physical exams, multiple ultrasounds, and bedside radiographs from 2 views. The procedure was aborted.
[2018-01-21] MEDS: ATORVASTATIN CALCIUM 10 MG TABLET PO SCH (21:23)
[2018-01-22] MEDS: LANSOPRAZOLE 30 MG TAB.RAP.DR PO SCH (05:09)
[2018-01-22 07:50] LABS: ABSOLUTE BASOPHILS # (AUTO) 0.2 10^3/uL (0.0-0.2); ABSOLUTE EOSINOPHILS # (AUTO) 0.2 10^3/uL (0.0-0.6); ABSOLUTE LYMPHOCYTES (AUTO) 1.1 10^3/uL (0.5-4.7); ABSOLUTE MONOCYTES (AUTO) 1.4 10^3/uL (0.1-1.4); ABSOLUTE NEUT (AUTO) 8.8 10^3/uL (1.7-8.2); BASOPHILS % (AUTO) 1.3 % (0-2); EOSINOPHILS % (AUTO) 1.7 % (0-6); HEMATOCRIT 24.1 % (37.9-51.0); HEMOGLOBIN 8.1 g/dL (13.5-17.0); LYMPHOCYTES % (AUTO) 9.5 % (13-45); MEAN CORPUSCULAR HEMOGLOBIN 28.9 pg (27.0-33.4); MEAN CORPUSCULAR HGB CONC 33.5 g/dL (32.0-36.0); MEAN CORPUSCULAR VOLUME 86 fl (80-97); PLATELET COUNT 530 10^3/uL (150-450); RED BLOOD COUNT 2.79 10^6/uL (4.35-5.55); RED CELL DISTRIBUTION WIDTH 14.7 % (11.5-14.0); SEGMENTED NEUTROPHILS % (AUTO) 75.5 % (42-78); TOTAL CELLS COUNTED % (AUTO) 100 %; WHITE BLOOD COUNT 11.6 10^3/uL (4.0-10.5)
[2018-01-22 08:13] LABS: ANION GAP 16 (5-19); ASPARTATE AMINO TRANSFERASE 24 U/L (17-59); BLOOD UREA NITROGEN 25 mg/dL (7-20); CARBON DIOXIDE 20 mmol/L (22-30); CHLORIDE 102 mmol/L (98-107); GLUCOSE 99 mg/dL (75-110); SODIUM 137.5 mmol/L (137-145)
[2018-01-22 08:14] LABS: ALANINE AMINOTRANSFERASE 24 U/L (21-72); ALKALINE PHOSPHATASE 76 U/L (38-126); BILIRUBIN,DIRECT 0.3 mg/dL (0.0-0.4); BILIRUBIN,TOTAL 0.6 mg/dL (0.2-1.3); TOTAL PROTEIN 6.4 g/dL (6.3-8.2)
[2018-01-22] MEDS: 1/2 NORMAL SALINE 1,000 ML IV PRN ×2 (08:40→23:31)
[2018-01-22] MEDS: ENOXAPARIN SODIUM INJ 30 MG/0.3 ML DISP.SYRIN SUBCUT SCH (09:47)
[2018-01-22] MEDS: FERROUS SULFATE 325 MG TABLET PO SCH (09:48)
[2018-01-22] MEDS: ASPIRIN 81 MG TABLET, CHEWABLE PO SCH (09:48)
[2018-01-22] MEDS: DOCUSATE SODIUM 100 MG CAPSULE PO SCH ×2 (09:48→18:35)
[2018-01-22] MEDS: DULOXETINE HCL 30 MG CAPSULE.DR PO SCH (09:48)
[2018-01-22] MEDS: CLOPIDOGREL BISULFATE 75 MG TABLET PO SCH (09:48)
[2018-01-22] MEDS: CYANOCOBALAMIN/FA/PYRIDOXINE TABLET PO SCH (09:49)
[2018-01-22] MEDS: RISPERIDONE 0.25 MG TABLET PO SCH (09:49)
[2018-01-22] MEDS: LOSARTAN POTASSIUM 50 MG TABLET PO SCH (10:09)
[2018-01-22] MEDS: FUROSEMIDE 40 MG TABLET PO SCH ×2 (10:09→18:35)
[2018-01-22] MEDS: CARVEDILOL 12.5 MG TABLET PO SCH ×2 (10:09→20:41)
--- NOTE | 2018-01-22 14:28 | PDOC PROGRESS REPORT ---
Subjective Progress Note for:: 01/22/18 Subjective:: Patient resting in bed. He is awake and alert. He is aware he is in the hospital and his name and birthdate, he is unsure of the date. Continues to make statements that are inappropriate. He denies any chest pain, shortness breath or dyspnea. He denies any nausea, vomiting or abdominal pain. He denies any dysuria. He denies any significant arthralgias or myalgias. Left knee incision is healing well. Presently is no family at the bedside. Remaining review of systems are negative. Reason For Visit: THROMBOCYTOSIS,ACUTE RENAL FAILURE,METABOLIC Physical Exam Vital Signs: Temp Pulse Resp BP Pulse Ox 97.5 F 73 20 116/49 L 99 01/22/18 12:04 01/22/18 12:04 01/22/18 12:04 01/22/18 12:04 01/22/18 12:04 Intake & Output 01/21/18 01/22/18 01/23/18 06:59 06:59 06:59 Intake Total 2400 2840 Output Total 675 Balance 1725 2840 Weight 114.2 kg 114.2 kg General appearance: PRESENT: no acute distress, obese, well-developed, well- nourished Head exam: PRESENT: atraumatic, normocephalic Eye exam: PRESENT: conjunctiva pink, EOMI, PERRLA. ABSENT: scleral icterus Ear exam: PRESENT: normal external ear exam Mouth exam: PRESENT: moist, tongue midline Neck exam: ABSENT: carotid bruit, JVD, lymphadenopathy, thyromegaly Respiratory exam: PRESENT: decreased breath sounds, symmetrical, unlabored Cardiovascular exam: PRESENT: RRR. ABSENT: diastolic murmur, rubs, systolic murmur Pulses: PRESENT: normal dorsalis pedis pul Vascular exam: PRESENT: normal capillary refill GI/Abdominal exam: PRESENT: normal bowel sounds, soft. ABSENT: distended, guarding, mass, organolmegaly, rebound, tenderness Rectal exam: PRESENT: deferred Extremities exam: PRESENT: tenderness - Left knee incisions healing well, +1 edema - Bilateral pedal to knees Neurological exam: PRESENT: alert, awake, oriented to person, oriented to place , CN II-XII grossly intact. ABSENT: motor sensory deficit Psychiatric exam: PRESENT: flat affect Focused psych exam: PRESENT: restlessness Skin exam: PRESENT: dry - left knee incision is healing, warm, other Results Laboratory Results: 01/22/18 07:35 01/22/18 07:35 01/22/18 01/22/18 07:35 07:35 WBC 11.6 H RBC 2.79 L Hgb 8.1 L Hct 24.1 L MCV 86 MCH 28.9 MCHC 33.5 RDW 14.7 H Plt Count 530 H Seg Neutrophils % 75.5 Lymphocytes % 9.5 L Monocytes % 12.0 Eosinophils % 1.7 Basophils % 1.3 Absolute Neutrophils 8.8 H Absolute Lymphocytes 1.1 Absolute Monocytes 1.4 Absolute Eosinophils 0.2 Absolute Basophils 0.2 Sodium 137.5 Potassium 4.0 Chloride 102 Carbon Dioxide 20 L Anion Gap 16 BUN 25 H Creatinine 1.85 H Est GFR ( Amer) 44 L Est GFR (Non-Af Amer) 36 L Glucose 99 Calcium 9.0 Total Bilirubin 0.6 AST 24 ALT 24 Alkaline Phosphatase 76 Total Protein 6.4 Albumin 3.0 L Impressions: Chest X-Ray 01/19/18 13:19 IMPRESSION: NO ACUTE RADIOGRAPHIC FINDING IN THE CHEST. Head CT 01/19/18 14:39 IMPRESSION: CHRONIC CHANGES OF ATROPHY AND MICROVASCULAR ISCHEMIA. NO ACUTE PROCESS. EVIDENCE OF ACUTE STROKE: NO. Extremity Ultrasound 01/21/18 00:00 IMPRESSION: Linear structure in the superficial soft tissues which is nonvascular and is consistent with the clinical suspicions for an IV catheter remaining in the soft tissues. Clinical correlation is recommended. Other findings as noted above Forearm X-Ray 01/21/18 00:00 IMPRESSION: NO ACUTE OSSEOUS ABNORMALITY. NO RADIOPAQUE FOREIGN BODY. IF SYMPTOMS PERSIST CONSIDER FOLLOW-UP ULTRASOUND IN 24-48 HOURS FOR REASSESSMENT. Head MRI 01/21/18 00:00 IMPRESSION: Limited study as noted above. MINIMAL MICROVASCULAR ISCHEMIC CHANGE. OTHERWISE NORMAL STUDY. EVIDENCE OF ACUTE STROKE: NO. Assessment & Plan - Diagnosis (1) Acute kidney injury superimposed on CKD Is this a current diagnosis for this admission?: Yes Plan: Remains about the same. He is receiving lasix bid. Need more accurate I&Os discussed with nursing (2) Altered mental status, unspecified Qualifiers: Altered mental status type: delirium Qualified Code(s): R41.0 - Disorientation, unspecified Is this a current diagnosis for this admission?: Yes Plan: Continues to have intermittent confusion. No infectious process identified. He will need short term rehab (3) BPH (benign prostatic hyperplasia) Qualifiers: Lower urinary tract symptom detail: unspecified Is this a current diagnosis for this admission?: Yes Plan: Continue flomax. He denies any difficulty urinating (4) CAD (coronary artery disease) Is this a current diagnosis for this admission?: Yes Plan: Continue current medications. No chest pain (5) Constipation Qualifiers: Constipation type: unspecified constipation type Qualified Code(s): K59.00 - Constipation, unspecified Is this a current diagnosis for this admission?: Yes Plan: Colace and prn miralax (6) DVT prophylaxis Is this a current diagnosis for this admission?: Yes Plan: Continue lovenox (7) Depression Is this a current diagnosis for this admission?: Yes Plan: Continue current medications (8) Hyperlipidemia Qualifiers: Hyperlipidemia type: mixed hyperlipidemia Qualified Code(s): E78.2 - Mixed hyperlipidemia Is this a current diagnosis for this admission?: Yes Plan: Continue statin (9) Hypertension Qualifiers: Hypertension type: unspecified Qualified Code(s): I10 - Essential (primary ) hypertension Is this a current diagnosis for this admission?: Yes Plan: Presently normotensive on current medications (10) Iron (Fe) deficiency anemia Qualifiers: Iron deficiency anemia type: unspecified iron deficiency Qualified Code(s) : D50.9 - Iron deficiency anemia, unspecified Is this a current diagnosis for this admission?: Yes Plan: Stable
[2018-01-22] MEDS: TAMSULOSIN HCL 0.4 MG CAP.SR.24H PO SCH (18:35)
[2018-01-22] MEDS: ATORVASTATIN CALCIUM 10 MG TABLET PO SCH (20:41)
[2018-01-23] MEDS: LANSOPRAZOLE 30 MG TAB.RAP.DR PO SCH (05:42)
[2018-01-23 06:27] LABS: ABSOLUTE BASOPHILS # (AUTO) 0.1 10^3/uL (0.0-0.2); ABSOLUTE EOSINOPHILS # (AUTO) 0.4 10^3/uL (0.0-0.6); ABSOLUTE LYMPHOCYTES (AUTO) 1.1 10^3/uL (0.5-4.7); ABSOLUTE MONOCYTES (AUTO) 1.1 10^3/uL (0.1-1.4); ABSOLUTE NEUT (AUTO) 7.6 10^3/uL (1.7-8.2); BASOPHILS % (AUTO) 1.3 % (0-2); EOSINOPHILS % (AUTO) 3.8 % (0-6); HEMATOCRIT 23.1 % (37.9-51.0); LYMPHOCYTES % (AUTO) 10.3 % (13-45); MEAN CORPUSCULAR HEMOGLOBIN 29.2 pg (27.0-33.4); MEAN CORPUSCULAR VOLUME 86 fl (80-97); MONOCYTES % (AUTO) 10.9 % (3-13); PLATELET COUNT 466 10^3/uL (150-450); RED BLOOD COUNT 2.69 10^6/uL (4.35-5.55); RED CELL DISTRIBUTION WIDTH 14.9 % (11.5-14.0); SEGMENTED NEUTROPHILS % (AUTO) 73.7 % (42-78); TOTAL CELLS COUNTED % (AUTO) 100 %; WHITE BLOOD COUNT 10.3 10^3/uL (4.0-10.5)
[2018-01-23 06:30] LABS: HEMOGLOBIN 7.9 g/dL (13.5-17.0)
[2018-01-23 07:19] LABS: ALANINE AMINOTRANSFERASE 23 U/L (21-72); ALBUMIN 3.2 g/dL (3.5-5.0); ALKALINE PHOSPHATASE 69 U/L (38-126); ANION GAP 12 (5-19); ASPARTATE AMINO TRANSFERASE 44 U/L (17-59); BILIRUBIN,DIRECT 0.5 mg/dL (0.0-0.4); BILIRUBIN,TOTAL 0.6 mg/dL (0.2-1.3); BLOOD UREA NITROGEN 30 mg/dL (7-20); CALCIUM 8.8 mg/dL (8.4-10.2); CARBON DIOXIDE 23 mmol/L (22-30); CHLORIDE 102 mmol/L (98-107); GLUCOSE 107 mg/dL (75-110); POTASSIUM 3.7 mmol/L (3.6-5.0); SODIUM 136.5 mmol/L (137-145)
[2018-01-23] MEDS: RISPERIDONE 0.25 MG TABLET PO SCH (09:11)
[2018-01-23] MEDS: CYANOCOBALAMIN/FA/PYRIDOXINE TABLET PO SCH (09:11)
[2018-01-23] MEDS: DOCUSATE SODIUM 100 MG CAPSULE PO SCH ×2 (09:11→17:26)
[2018-01-23] MEDS: FUROSEMIDE 40 MG TABLET PO SCH (09:12)
[2018-01-23] MEDS: CARVEDILOL 12.5 MG TABLET PO SCH ×2 (09:12→21:12)
[2018-01-23] MEDS: ENOXAPARIN SODIUM INJ 30 MG/0.3 ML DISP.SYRIN SUBCUT SCH (09:12)
[2018-01-23] MEDS: ASPIRIN 81 MG TABLET, CHEWABLE PO SCH (09:12)
[2018-01-23] MEDS: DULOXETINE HCL 30 MG CAPSULE.DR PO SCH (09:12)
[2018-01-23] MEDS: CLOPIDOGREL BISULFATE 75 MG TABLET PO SCH (09:12)
[2018-01-23] MEDS: FERROUS SULFATE 325 MG TABLET PO SCH (09:12)
[2018-01-23] MEDS: LOSARTAN POTASSIUM 50 MG TABLET PO SCH (09:12)
--- NOTE | 2018-01-23 12:05 | PDOC PROGRESS REPORT ---
Subjective Progress Note for:: 01/23/18 Subjective:: Patient today appears the same as my first visit with him. His is now at bedside, but he is again talking clearly, but non-sensical. is very concerned as we still do not have a good reason for this behavior. He is not eating much, denies pain, no BMs. No difficulty with bladder. No fevers. Reason For Visit: THROMBOCYTOSIS,ACUTE RENAL FAILURE,METABOLIC Physical Exam Vital Signs: Temp Pulse Resp BP Pulse Ox 97.9 F 67 20 178/57 H 95 01/23/18 08:26 01/23/18 08:26 01/23/18 08:26 01/23/18 08:26 01/23/18 08:26 Intake & Output 01/22/18 01/23/18 01/24/18 06:59 06:59 06:59 Intake Total 2840 3450 Balance 2840 3450 Weight 114.2 kg 114.8 kg General appearance: PRESENT: no acute distress Exam: Overweight, male. Still picking at things Head exam: PRESENT: atraumatic Respiratory exam: PRESENT: clear to auscultation maral, unlabored Cardiovascular exam: PRESENT: RRR GI/Abdominal exam: PRESENT: normal bowel sounds, soft. ABSENT: tenderness Extremities exam: PRESENT: other - SCDs in place.. ABSENT: pedal edema Neurological exam: PRESENT: awake Psychiatric exam: PRESENT: agitated Focused psych exam: PRESENT: restlessness Skin exam: PRESENT: normal color Results Laboratory Results: 01/23/18 06:01 01/23/18 06:01 01/23/18 01/23/18 06:01 06:01 WBC 10.3 RBC 2.69 L Hgb 7.9 L Hct 23.1 L MCV 86 MCH 29.2 MCHC 34.0 RDW 14.9 H Plt Count 466 H Seg Neutrophils % 73.7 Lymphocytes % 10.3 L Monocytes % 10.9 Eosinophils % 3.8 Basophils % 1.3 Absolute Neutrophils 7.6 Absolute Lymphocytes 1.1 Absolute Monocytes 1.1 Absolute Eosinophils 0.4 Absolute Basophils 0.1 Sodium 136.5 L Potassium 3.7 Chloride 102 Carbon Dioxide 23 Anion Gap 12 BUN 30 H Creatinine 2.03 H Est GFR ( Amer) 39 L Est GFR (Non-Af Amer) 33 L Glucose 107 Calcium 8.8 Total Bilirubin 0.6 AST 44 ALT 23 Alkaline Phosphatase 69 Total Protein 7.0 Albumin 3.2 L Impressions: Chest X-Ray 01/19/18 13:19 IMPRESSION: NO ACUTE RADIOGRAPHIC FINDING IN THE CHEST. Head CT 01/19/18 14:39 IMPRESSION: CHRONIC CHANGES OF ATROPHY AND MICROVASCULAR ISCHEMIA. NO ACUTE PROCESS. EVIDENCE OF ACUTE STROKE: NO. Extremity Ultrasound 01/21/18 00:00 IMPRESSION: Linear structure in the superficial soft tissues which is nonvascular and is consistent with the clinical suspicions for an IV catheter remaining in the soft tissues. Clinical correlation is recommended. Other findings as noted above Forearm X-Ray 01/21/18 00:00 IMPRESSION: NO ACUTE OSSEOUS ABNORMALITY. NO RADIOPAQUE FOREIGN BODY. IF SYMPTOMS PERSIST CONSIDER FOLLOW-UP ULTRASOUND IN 24-48 HOURS FOR REASSESSMENT. Head MRI 01/21/18 00:00 IMPRESSION: Limited study as noted above. MINIMAL MICROVASCULAR ISCHEMIC CHANGE. OTHERWISE NORMAL STUDY. EVIDENCE OF ACUTE STROKE: NO. Assessment & Plan - Diagnosis (1) Metabolic encephalopathy Is this a current diagnosis for this admission?: Yes Plan: Still unsure as to the cause. I will check Ammonia and LDH levels today. Consider LP in AM. (2) Anemia Qualifiers: Anemia type: unspecified type Qualified Code(s): D64.9 - Anemia, unspecified Is this a current diagnosis for this admission?: Yes Plan: This appears to be anemia of chronic disease. It is NOT iron deficiency. I will stop the iron supplements. Await LDH level. Consider transfusion again tomorrow. (3) Thrombocytosis Is this a current diagnosis for this admission?: Yes Plan: Slowly improving. He is on Lovenox and Plavix. He is at risk for bleeding. (4) Acute renal failure Qualifiers: Acute renal failure type: unspecified Qualified Code(s): N17.9 - Acute kidney failure, unspecified Is this a current diagnosis for this admission?: Yes - Plan Summary Plan Summary: I will continue to follow with you. I have also ordered ABG and UA today.
[2018-01-23 12:32] LABS: ARTERIAL BLOOD BASE EXCESS -1.5 mmol/L; ARTERIAL BLOOD FIO2 21%; ARTERIAL BLOOD H2CO3 0.98 mmol/L (1.05-1.35); ARTERIAL BLOOD HCO3 22.1 mmol/L (20-26); ARTERIAL BLOOD O2 SATURATION 85.2 % (94-98); ARTERIAL BLOOD PCO2 32.7 mmHg (35-45); ARTERIAL BLOOD PH 7.45 (7.35-7.45); ARTERIAL BLOOD PO2 46.9 mmHg (80-100); ARTERIAL BLOOD TOTAL CO2 23.1 mmol/L (23-27)
--- NOTE | 2018-01-23 14:20 | PDOC PROGRESS REPORT ---
Subjective Progress Note for:: 01/23/18 Subjective:: Patient resting in bed. He is laying in bed with his eyes closed. His is at the bedside. He awakens to his name. He is confused to time and place. His speech is clear. He continues to make statements that are inappropriate. He denies any chest pain, shortness breath or dyspnea. He denies any nausea, vomiting or abdominal pain. He denies any dysuria. He denies any significant arthralgias or myalgias. Left knee incision is healing well Remaining review of systems are negative. Reason For Visit: THROMBOCYTOSIS,ACUTE RENAL FAILURE,METABOLIC Physical Exam Vital Signs: Temp Pulse Resp BP Pulse Ox 98.3 F 66 20 156/45 H 93 01/23/18 11:53 01/23/18 11:53 01/23/18 11:53 01/23/18 11:53 01/23/18 11:53 Intake & Output 01/22/18 01/23/18 01/24/18 06:59 06:59 06:59 Intake Total 2840 3450 Balance 2840 3450 Weight 114.2 kg 114.8 kg Results Laboratory Results: 01/23/18 06:01 01/23/18 06:01 01/23/18 01/23/18 01/23/18 06:01 06:01 11:55 WBC 10.3 RBC 2.69 L Hgb 7.9 L Hct 23.1 L MCV 86 MCH 29.2 MCHC 34.0 RDW 14.9 H Plt Count 466 H Seg Neutrophils % 73.7 Lymphocytes % 10.3 L Monocytes % 10.9 Eosinophils % 3.8 Basophils % 1.3 Absolute Neutrophils 7.6 Absolute Lymphocytes 1.1 Absolute Monocytes 1.1 Absolute Eosinophils 0.4 Absolute Basophils 0.1 Carbonic Acid 0.98 L HCO3/H2CO3 Ratio 22:1 ABG pH 7.45 ABG pCO2 32.7 L ABG pO2 46.9 L ABG HCO3 22.1 ABG O2 Saturation 85.2 L ABG Base Excess -1.5 FiO2 21% Sodium 136.5 L Potassium 3.7 Chloride 102 Carbon Dioxide 23 Anion Gap 12 BUN 30 H Creatinine 2.03 H Est GFR ( Amer) 39 L Est GFR (Non-Af Amer) 33 L Glucose 107 Calcium 8.8 Total Bilirubin 0.6 AST 44 ALT 23 Alkaline Phosphatase 69 Ammonia Total Protein 7.0 Albumin 3.2 L 01/23/18 12:45 WBC RBC Hgb Hct MCV MCH MCHC RDW Plt Count Seg Neutrophils % Lymphocytes % Monocytes % Eosinophils % Basophils % Absolute Neutrophils Absolute Lymphocytes Absolute Monocytes Absolute Eosinophils Absolute Basophils Carbonic Acid HCO3/H2CO3 Ratio ABG pH ABG pCO2 ABG pO2 ABG HCO3 ABG O2 Saturation ABG Base Excess FiO2 Sodium Potassium Chloride Carbon Dioxide Anion Gap BUN Creatinine Est GFR ( Amer) Est GFR (Non-Af Amer) Glucose Calcium Total Bilirubin AST ALT Alkaline Phosphatase Ammonia < 8.7 L Total Protein Albumin Impressions: Chest X-Ray 01/19/18 13:19 IMPRESSION: NO ACUTE RADIOGRAPHIC FINDING IN THE CHEST. Head CT 01/19/18 14:39 IMPRESSION: CHRONIC CHANGES OF ATROPHY AND MICROVASCULAR ISCHEMIA. NO ACUTE PROCESS. EVIDENCE OF ACUTE STROKE: NO. Extremity Ultrasound 01/21/18 00:00 IMPRESSION: Linear structure in the superficial soft tissues which is nonvascular and is consistent with the clinical suspicions for an IV catheter remaining in the soft tissues. Clinical correlation is recommended. Other findings as noted above Forearm X-Ray 01/21/18 00:00 IMPRESSION: NO ACUTE OSSEOUS ABNORMALITY. NO RADIOPAQUE FOREIGN BODY. IF SYMPTOMS PERSIST CONSIDER FOLLOW-UP ULTRASOUND IN 24-48 HOURS FOR REASSESSMENT. Head MRI 01/21/18 00:00 IMPRESSION: Limited study as noted above. MINIMAL MICROVASCULAR ISCHEMIC CHANGE. OTHERWISE NORMAL STUDY. EVIDENCE OF ACUTE STROKE: NO. Assessment & Plan - Diagnosis (1) Altered mental status, unspecified Qualifiers: Altered mental status type: delirium Qualified Code(s): R41.0 - Disorientation, unspecified Is this a current diagnosis for this admission?: Yes Plan: Continues to have intermittent confusion. Arterial blood gas done earlier by medical doctor shows significant hypoxia. Will place on oxygen and check chest xray. No infectious process identified. May consider LP if he could tolerate tomorrow. He will need short term rehab (2) Acute kidney injury superimposed on CKD Is this a current diagnosis for this admission?: Yes Plan: His bun/cr bumped up slightly today. Nursing reports he is not drinking much. Will hold his evening dose oral Lasix, continue IV hydration and recheck in the a.m. (3) BPH (benign prostatic hyperplasia) Qualifiers: Lower urinary tract symptom detail: unspecified Is this a current diagnosis for this admission?: Yes Plan: Continue flomax. He denies any difficulty urinating (4) CAD (coronary artery disease) Is this a current diagnosis for this admission?: Yes Plan: Continue current medications. No chest pain (5) Constipation Qualifiers: Constipation type: unspecified constipation type Qualified Code(s): K59.00 - Constipation, unspecified Is this a current diagnosis for this admission?: Yes Plan: Colace and prn miralax (6) DVT prophylaxis Is this a current diagnosis for this admission?: Yes Plan: Continue lovenox (7) Depression Is this a current diagnosis for this admission?: Yes Plan: Continue current medications (8) Hyperlipidemia Qualifiers: Hyperlipidemia type: mixed hyperlipidemia Qualified Code(s): E78.2 - Mixed hyperlipidemia Is this a current diagnosis for this admission?: Yes Plan: Continue statin (9) Hypertension Qualifiers: Hypertension type: unspecified Qualified Code(s): I10 - Essential (primary ) hypertension Is this a current diagnosis for this admission?: Yes Plan: Presently normotensive on current medications (10) Iron (Fe) deficiency anemia Qualifiers: Iron deficiency anemia type: unspecified iron deficiency Qualified Code(s) : D50.9 - Iron deficiency anemia, unspecified Is this a current diagnosis for this admission?: Yes Plan: Stable - Time Time Spent with patient: 25-34 minutes Total Critical Time (Minutes): 20 Medications reviewed and adjusted accordingly: Yes Anticipated discharge: Acute Rehab Within: when bed available - Inpatient Certification Based on my medical assessment, after consideration of the patient's comorbidities, presenting symptoms, or acuity I expect that the services needed warrant INPATIENT care.: Yes I certify that my determination is in accordance with my understanding of Medicare's requirements for reasonable and necessary INPATIENT services [42 CFR 412.3e].: Yes Medical Necessity: Failure to Improve With Outpatient Therapy, Need For IV Fluids, Need for Neurological Checks, Risk of Complication if Not Cared For in Hospital
--- NOTE | 2018-01-23 15:45 | RADIOLOGY REPORT (SQ) ---
EXAM DESCRIPTION: CHEST SINGLE VIEW COMPLETED DATE/TIME: 01/23/2018 3:33 pm REASON FOR STUDY: Hypoxemia COMPARISON: 01/19/2018. FINDINGS: Single-view chest, AP portable upright. Fairly low lung volumes. Clear lungs without evidence of congestive failure or pneumonia. Graft sta ble cardiomediastinal silhouette. IMPRESSION: No acute cardiopulmonary disease. TECHNICAL DOCUMENTATION: JOB ID: [id number] Reading location - IP/workstation name: [email or web address]
[2018-01-23] MEDS: TAMSULOSIN HCL 0.4 MG CAP.SR.24H PO SCH (17:29)
[2018-01-23] MEDS: ATORVASTATIN CALCIUM 10 MG TABLET PO SCH (21:12)
[2018-01-24] MEDS: LANSOPRAZOLE 30 MG TAB.RAP.DR PO SCH (05:12)
--- NOTE | 2018-01-24 07:57 | PDOC PROGRESS REPORT ---
Subjective Progress Note for:: 01/24/18 Subjective:: Patient remains confused today. Not making any sense. Still with tremors and picking. No family is at bedside this morning. Reason For Visit: THROMBOCYTOSIS,ACUTE RENAL FAILURE,METABOLIC Physical Exam Vital Signs: Temp Pulse Resp BP Pulse Ox 98.5 F 71 16 145/62 H 98 01/24/18 03:51 01/24/18 03:51 01/24/18 03:51 01/24/18 03:51 01/24/18 03:51 Intake & Output 01/23/18 01/24/18 01/25/18 06:59 06:59 06:59 Intake Total 3450 1700 Balance 3450 1700 Weight 114.8 kg 115.1 kg General appearance: PRESENT: no acute distress, obese Respiratory exam: PRESENT: wheezes Cardiovascular exam: PRESENT: RRR GI/Abdominal exam: PRESENT: soft. ABSENT: tenderness Extremities exam: ABSENT: pedal edema Neurological exam: PRESENT: awake. ABSENT: oriented to person, oriented to place, oriented to time, oriented to situation Focused psych exam: PRESENT: restlessness Skin exam: PRESENT: normal color Results Laboratory Results: 01/23/18 06:01 01/23/18 06:01 01/23/18 01/23/18 11:55 12:45 Carbonic Acid 0.98 L HCO3/H2CO3 Ratio 22:1 ABG pH 7.45 ABG pCO2 32.7 L ABG pO2 46.9 L ABG HCO3 22.1 ABG O2 Saturation 85.2 L ABG Base Excess -1.5 FiO2 21% Ammonia < 8.7 L Impressions: Head CT 01/19/18 14:39 IMPRESSION: CHRONIC CHANGES OF ATROPHY AND MICROVASCULAR ISCHEMIA. NO ACUTE PROCESS. EVIDENCE OF ACUTE STROKE: NO. Extremity Ultrasound 01/21/18 00:00 IMPRESSION: Linear structure in the superficial soft tissues which is nonvascular and is consistent with the clinical suspicions for an IV catheter remaining in the soft tissues. Clinical correlation is recommended. Other findings as noted above Forearm X-Ray 01/21/18 00:00 IMPRESSION: NO ACUTE OSSEOUS ABNORMALITY. NO RADIOPAQUE FOREIGN BODY. IF SYMPTOMS PERSIST CONSIDER FOLLOW-UP ULTRASOUND IN 24-48 HOURS FOR REASSESSMENT. Head MRI 01/21/18 00:00 IMPRESSION: Limited study as noted above. MINIMAL MICROVASCULAR ISCHEMIC CHANGE. OTHERWISE NORMAL STUDY. EVIDENCE OF ACUTE STROKE: NO. Chest X-Ray 01/23/18 00:00 IMPRESSION: No acute cardiopulmonary disease. Assessment & Plan - Diagnosis (1) Metabolic encephalopathy Is this a current diagnosis for this admission?: Yes Plan: Still unclear as to cause. His ABG yesterday showed hypoxia. He does have some wheezing today. Althoughhe denies chest pain or dyspnea, wondering with his history of recent orthopedic surgery if this could be PE. (2) Anemia Qualifiers: Anemia type: unspecified type Qualified Code(s): D64.9 - Anemia, unspecified Is this a current diagnosis for this admission?: Yes Plan: This continues. I would repeat CBC and if HGB <8 would transfuse 2 units PRBCs. (3) Thrombocytosis Is this a current diagnosis for this admission?: Yes Plan: Improved. Most likely reactive. He continues on DVT prophylaxis and ASA. (4) Acute renal failure Qualifiers: Acute renal failure type: unspecified Qualified Code(s): N17.9 - Acute kidney failure, unspecified Is this a current diagnosis for this admission?: Yes
[2018-01-24 09:41] LABS: ABSOLUTE BASOPHILS # (AUTO) 0.1 10^3/uL (0.0-0.2); ABSOLUTE EOSINOPHILS # (AUTO) 0.3 10^3/uL (0.0-0.6); ABSOLUTE LYMPHOCYTES (AUTO) 0.8 10^3/uL (0.5-4.7); BASOPHILS % (AUTO) 1.4 % (0-2); EOSINOPHILS % (AUTO) 3.8 % (0-6); HEMATOCRIT 23.7 % (37.9-51.0); HEMOGLOBIN 8.1 g/dL (13.5-17.0); LYMPHOCYTES % (AUTO) 10.1 % (13-45); MEAN CORPUSCULAR HEMOGLOBIN 29.5 pg (27.0-33.4); MEAN CORPUSCULAR HGB CONC 34.2 g/dL (32.0-36.0); MEAN CORPUSCULAR VOLUME 86 fl (80-97); PLATELET COUNT 462 10^3/uL (150-450); RED BLOOD COUNT 2.75 10^6/uL (4.35-5.55); RED CELL DISTRIBUTION WIDTH 14.9 % (11.5-14.0); SEGMENTED NEUTROPHILS % (AUTO) 72.7 % (42-78); TOTAL CELLS COUNTED % (AUTO) 100 %; WHITE BLOOD COUNT 8.3 10^3/uL (4.0-10.5)
[2018-01-24 10:12] LABS: ALANINE AMINOTRANSFERASE 30 U/L (21-72); ALKALINE PHOSPHATASE 73 U/L (38-126); ANION GAP 12 (5-19); ASPARTATE AMINO TRANSFERASE 30 U/L (17-59); BILIRUBIN,DIRECT 0.4 mg/dL (0.0-0.4); BILIRUBIN,TOTAL 0.4 mg/dL (0.2-1.3); BLOOD UREA NITROGEN 22 mg/dL (7-20); CALCIUM 8.9 mg/dL (8.4-10.2); CARBON DIOXIDE 22 mmol/L (22-30); CHLORIDE 107 mmol/L (98-107); GLUCOSE 94 mg/dL (75-110); POTASSIUM 4.2 mmol/L (3.6-5.0); SODIUM 140.9 mmol/L (137-145); TOTAL PROTEIN 6.3 g/dL (6.3-8.2)
[2018-01-24 10:24] LABS: APPEARANCE,URINE SLIGHTLY-CLOUDY; BILIRUBIN,URINE NEGATIVE (NEGATIVE); COLOR,URINE YELLOW; GLUCOSE, URINE NEGATIVE (NEGATIVE); KETONES,URINE NEGATIVE (NEGATIVE); LEUKOCYTE ESTERASE,URINE NEGATIVE (NEGATIVE); NITRITE,URINE NEGATIVE (NEGATIVE); PROTEIN,URINE 30 mg/dL (NEGATIVE); URINE SPECIFIC GRAVITY 1.012; UROBILINOGEN,URINE NEGATIVE mg/dL (<2.0)
[2018-01-24] MEDS: FUROSEMIDE 40 MG TABLET PO SCH (10:27)
[2018-01-24] MEDS: DOCUSATE SODIUM 100 MG CAPSULE PO SCH ×2 (10:27→18:25)
[2018-01-24] MEDS: CARVEDILOL 12.5 MG TABLET PO SCH ×2 (10:28→21:48)
[2018-01-24] MEDS: ASPIRIN 81 MG TABLET, CHEWABLE PO SCH (10:28)
[2018-01-24] MEDS: DULOXETINE HCL 30 MG CAPSULE.DR PO SCH (10:28)
[2018-01-24] MEDS: LOSARTAN POTASSIUM 50 MG TABLET PO SCH (10:28)
[2018-01-24] MEDS: CLOPIDOGREL BISULFATE 75 MG TABLET PO SCH (10:28)
[2018-01-24] MEDS: CYANOCOBALAMIN/FA/PYRIDOXINE TABLET PO SCH (10:29)
[2018-01-24] MEDS: ENOXAPARIN SODIUM INJ 30 MG/0.3 ML DISP.SYRIN SUBCUT SCH (10:29)
[2018-01-24] MEDS: RISPERIDONE 0.25 MG TABLET PO SCH ×2 (10:29→18:26)
[2018-01-24 12:32] LABS: ARTERIAL BLOOD BASE EXCESS -0.7 mmol/L; ARTERIAL BLOOD H2CO3 0.99 mmol/L (1.05-1.35); ARTERIAL BLOOD HCO3 22.8 mmol/L (20-26); ARTERIAL BLOOD O2 SATURATION 98.6 % (94-98); ARTERIAL BLOOD PCO2 32.8 mmHg (35-45); ARTERIAL BLOOD PH 7.46 (7.35-7.45); ARTERIAL BLOOD PO2 119.7 mmHg (80-100); ARTERIAL BLOOD TOTAL CO2 23.8 mmol/L (23-27)
[2018-01-24 12:34] LABS: ARTERIAL BLOOD FIO2 2L
[2018-01-24] MEDS: NORMAL SALINE 1000 ML 1,000 ML IV PRN (15:47)
[2018-01-24] MEDS: ACETAMINOPHEN 325 MG TABLET PO PRN ×2 (16:10→21:48)
--- NOTE | 2018-01-24 16:39 | PDOC PROGRESS REPORT ---
Subjective Progress Note for:: 01/24/18 Subjective:: He is alert and no fever or cough or dyspnea. He a bit confused and makes inappropriate statements, but there is no evidence of infection anywhere and his oxygen saturation on repeat blood gas today is normal. The pt's nurse indicated that he may be having sleep deprivation since he has not been sleeping. I increased the Risperdal to 0.25 in the morning and at bedtime. I discussed his care with Dr Kumar and there is no indication for a spinal tap. I also discussed his condition and plan of care with pt's and daughter. We will f/u with PT/OT consult and with corporate planner for possible placement at [place] as requested by his . Reason For Visit: THROMBOCYTOSIS,ACUTE RENAL FAILURE,METABOLIC Physical Exam Vital Signs: Temp Pulse Resp BP Pulse Ox 98.9 F 69 21 H 148/76 H 100 01/24/18 11:59 01/24/18 11:59 01/24/18 11:59 01/24/18 11:59 01/24/18 11:59 Intake & Output 01/23/18 01/24/18 01/25/18 06:59 06:59 06:59 Intake Total 3450 1700 Balance 3450 1700 Weight 114.8 kg 115.1 kg General appearance: PRESENT: no acute distress, cooperative, well-developed, well-nourished Head exam: PRESENT: atraumatic, normocephalic Eye exam: PRESENT: EOMI, PERRLA Ear exam: PRESENT: normal external ear exam, TM's normal bilaterally Mouth exam: PRESENT: neck supple, tongue midline Respiratory exam: PRESENT: clear to auscultation maral, symmetrical Cardiovascular exam: PRESENT: +S1, +S2 Pulses: PRESENT: +2 pedal pulses bilateral GI/Abdominal exam: PRESENT: organolmegaly, soft Rectal exam: PRESENT: deferred Extremities exam: PRESENT: full ROM Musculoskeletal exam: PRESENT: full ROM Neurological exam: PRESENT: alert, awake, oriented to person Psychiatric exam: PRESENT: normal mood Results Laboratory Results: 01/24/18 08:24 01/24/18 08:24 01/24/18 01/24/18 01/24/18 08:05 08:24 08:24 WBC 8.3 RBC 2.75 L Hgb 8.1 L Hct 23.7 L MCV 86 MCH 29.5 MCHC 34.2 RDW 14.9 H Plt Count 462 H Seg Neutrophils % 72.7 Lymphocytes % 10.1 L Monocytes % 12.0 Eosinophils % 3.8 Basophils % 1.4 Absolute Neutrophils 6.0 Absolute Lymphocytes 0.8 Absolute Monocytes 1.0 Absolute Eosinophils 0.3 Absolute Basophils 0.1 Carbonic Acid HCO3/H2CO3 Ratio ABG pH ABG pCO2 ABG pO2 ABG HCO3 ABG O2 Saturation ABG Base Excess FiO2 Sodium 140.9 Potassium 4.2 Chloride 107 Carbon Dioxide 22 Anion Gap 12 BUN 22 H Creatinine 1.60 H Est GFR ( Amer) 52 L Est GFR (Non-Af Amer) 43 L Glucose 94 Calcium 8.9 Total Bilirubin 0.4 AST 30 ALT 30 Alkaline Phosphatase 73 Total Protein 6.3 Albumin 3.0 L Urine Color YELLOW Urine Appearance SLIGHTLY-CLOUDY Urine pH 5.0 Ur Specific [place] 1.012 Urine Protein 30 H Urine Glucose (UA) NEGATIVE Urine Ketones NEGATIVE Urine Blood LARGE H Urine Nitrite NEGATIVE Ur Leukocyte Esterase NEGATIVE Urine WBC (Auto) 29 Urine RBC (Auto) >182 01/24/18 12:10 WBC RBC Hgb Hct MCV MCH MCHC RDW Plt Count Seg Neutrophils % Lymphocytes % Monocytes % Eosinophils % Basophils % Absolute Neutrophils Absolute Lymphocytes Absolute Monocytes Absolute Eosinophils Absolute Basophils Carbonic Acid 0.99 L HCO3/H2CO3 Ratio 23:1 ABG pH 7.46 H ABG pCO2 32.8 L ABG pO2 119.7 H ABG HCO3 22.8 ABG O2 Saturation 98.6 H ABG Base Excess -0.7 FiO2 2L Sodium Potassium Chloride Carbon Dioxide Anion Gap BUN Creatinine Est GFR ( Amer) Est GFR (Non-Af Amer) Glucose Calcium Total Bilirubin AST ALT Alkaline Phosphatase Total Protein Albumin Urine Color Urine Appearance Urine pH Ur Specific [place] Urine Protein Urine Glucose (UA) Urine Ketones Urine Blood Urine Nitrite Ur Leukocyte Esterase Urine WBC (Auto) Urine RBC (Auto) Impressions: Head CT 01/19/18 14:39 IMPRESSION: CHRONIC CHANGES OF ATROPHY AND MICROVASCULAR ISCHEMIA. NO ACUTE PROCESS. EVIDENCE OF ACUTE STROKE: NO. Extremity Ultrasound 01/21/18 00:00 IMPRESSION: Linear structure in the superficial soft tissues which is nonvascular and is consistent with the clinical suspicions for an IV catheter remaining in the soft tissues. Clinical correlation is recommended. Other findings as noted above Forearm X-Ray 01/21/18 00:00 IMPRESSION: NO ACUTE OSSEOUS ABNORMALITY. NO RADIOPAQUE FOREIGN BODY. IF SYMPTOMS PERSIST CONSIDER FOLLOW-UP ULTRASOUND IN 24-48 HOURS FOR REASSESSMENT. Head MRI 01/21/18 00:00 IMPRESSION: Limited study as noted above. MINIMAL MICROVASCULAR ISCHEMIC CHANGE. OTHERWISE NORMAL STUDY. EVIDENCE OF ACUTE STROKE: NO. Chest X-Ray 01/23/18 00:00 IMPRESSION: No acute cardiopulmonary disease. Assessment & Plan - Diagnosis (1) Altered mental status, unspecified Qualifiers: Altered mental status type: delirium Qualified Code(s): R41.0 - Disorientation, unspecified Is this a current diagnosis for this admission?: Yes Plan: Ct with 4 hourly neurochecks, seizure/falls precautions; CT head was normal; no evidence of infection presently. MRI head was normal.. (2) Metabolic encephalopathy Is this a current diagnosis for this admission?: Yes Plan: Monitor pt closely; 4 hourly neurochecks; seizure/fall precautions; Optimize hydration with IV fluids.Ct with Risperdal 0.25 mg qd, qhs po. (3) Acute kidney injury superimposed on CKD Is this a current diagnosis for this admission?: Yes Plan: Ct with IV fluids normal saline cautiously at 50 cc/hr due to history of CHF. Strict input/out put chart; Daily weight; Avoid all nephrotoxics. Monitor chemistries daily. (4) Hyperkalemia Is this a current diagnosis for this admission?: Yes Plan: It is resolved.Pt had 5% dextrose in water with Insulin and Albuterol nebs at ER; monitor Chemistries daily . (5) Thrombocytosis Is this a current diagnosis for this admission?: Yes Plan: This is possibly reactive. Ct with Aspirin 81 mg qd; DVT prophylaxis; F/u hematology consult with Dr Kumar. (6) Hypertension Qualifiers: Hypertension type: unspecified Qualified Code(s): I10 - Essential (primary ) hypertension Is this a current diagnosis for this admission?: Yes Plan: Ct with Losartan 100 mg qd po; Coreg 12.5 mg BID po; 2 g sodium diet. (7) Hyperlipidemia Qualifiers: Hyperlipidemia type: mixed hyperlipidemia Qualified Code(s): E78.2 - Mixed hyperlipidemia Is this a current diagnosis for this admission?: Yes Plan: Ct with Atorvastatin 10 mg qhs po; 200 mg cholesterol diet. (8) Diastolic CHF Qualifiers: Heart failure chronicity: chronic Qualified Code(s): I50.32 - Chronic diastolic (congestive) heart failure Is this a current diagnosis for this admission?: Yes Plan: Ct with Lasix 40 mg qd PO; Hold KCL due to hyperkalemia. Strict input/out put chart; daily weight;monitor chemistries daily. (9) CAD (coronary artery disease) Is this a current diagnosis for this admission?: Yes Plan: Ct with Plavix 75 mg qd po; Aspirin 81 mg qd po, cardiac diet. (10) Iron (Fe) deficiency anemia Qualifiers: Iron deficiency anemia type: unspecified iron deficiency Qualified Code(s) : D50.9 - Iron deficiency anemia, unspecified Is this a current diagnosis for this admission?: Yes (11) Reflux esophagitis Is this a current diagnosis for this admission?: Yes Plan: Ct with Prevacid 30 mg qd po; Hold Protonix since it is not in our formulary. (12) BPH (benign prostatic hyperplasia) Qualifiers: Lower urinary tract symptom detail: unspecified Is this a current diagnosis for this admission?: Yes Plan: Ct with Flomax 0.4 mg qd po. (13) Arthritis of left knee Is this a current diagnosis for this admission?: Yes Plan: Ct with Tylenol 650 mg q6 po prn. (14) Depression Is this a current diagnosis for this admission?: Yes Plan: Ct with Cymbalta 60 mg qd po. (15) Constipation Qualifiers: Constipation type: unspecified constipation type Qualified Code(s): K59.00 - Constipation, unspecified Is this a current diagnosis for this admission?: Yes Plan: Ct with Colace 100 mg BID po prn. (16) DVT prophylaxis Is this a current diagnosis for this admission?: Yes Plan: Ct with Lovenox 30 mg qd subcut; SCD. (17) Anemia of chronic disease Is this a current diagnosis for this admission?: Yes Plan: No need for Ferrous sulfate; Monitor CBC daily; no indication for PRBC at this point. F/u Dr Kumar.
[2018-01-24] MEDS: TAMSULOSIN HCL 0.4 MG CAP.SR.24H PO SCH (18:26)
[2018-01-24] MEDS: ATORVASTATIN CALCIUM 10 MG TABLET PO SCH (21:48)
[2018-01-24] MEDS: ZOLPIDEM TARTRATE 5 MG TABLET PO PRN (21:49)
[2018-01-25] MEDS: LANSOPRAZOLE 30 MG TAB.RAP.DR PO SCH (06:14)
[2018-01-25 06:58] LABS: ABSOLUTE BASOPHILS # (AUTO) 0.1 10^3/uL (0.0-0.2); ABSOLUTE EOSINOPHILS # (AUTO) 0.3 10^3/uL (0.0-0.6); ABSOLUTE LYMPHOCYTES (AUTO) 0.7 10^3/uL (0.5-4.7); ABSOLUTE MONOCYTES (AUTO) 0.8 10^3/uL (0.1-1.4); ABSOLUTE NEUT (AUTO) 7.1 10^3/uL (1.7-8.2); BASOPHILS % (AUTO) 1.1 % (0-2); HEMATOCRIT 26.3 % (37.9-51.0); HEMOGLOBIN 8.7 g/dL (13.5-17.0); LYMPHOCYTES % (AUTO) 7.9 % (13-45); MEAN CORPUSCULAR HEMOGLOBIN 28.6 pg (27.0-33.4); MEAN CORPUSCULAR HGB CONC 32.9 g/dL (32.0-36.0); MEAN CORPUSCULAR VOLUME 87 fl (80-97); MONOCYTES % (AUTO) 9.2 % (3-13); PLATELET COUNT 469 10^3/uL (150-450); RED BLOOD COUNT 3.03 10^6/uL (4.35-5.55); RED CELL DISTRIBUTION WIDTH 14.5 % (11.5-14.0); SEGMENTED NEUTROPHILS % (AUTO) 78.8 % (42-78); TOTAL CELLS COUNTED % (AUTO) 100 %
[2018-01-25 07:24] LABS: ALANINE AMINOTRANSFERASE 25 U/L (21-72); ALBUMIN 3.1 g/dL (3.5-5.0); ALKALINE PHOSPHATASE 73 U/L (38-126); ANION GAP 15 (5-19); ASPARTATE AMINO TRANSFERASE 30 U/L (17-59); BILIRUBIN,DIRECT 0.4 mg/dL (0.0-0.4); BILIRUBIN,TOTAL 0.4 mg/dL (0.2-1.3); BLOOD UREA NITROGEN 17 mg/dL (7-20); CALCIUM 9.2 mg/dL (8.4-10.2); CARBON DIOXIDE 21 mmol/L (22-30); CHLORIDE 108 mmol/L (98-107); GLUCOSE 115 mg/dL (75-110); POTASSIUM 4.2 mmol/L (3.6-5.0); SODIUM 143.5 mmol/L (137-145); TOTAL PROTEIN 6.7 g/dL (6.3-8.2)
[2018-01-25] MEDS: LOSARTAN POTASSIUM 50 MG TABLET PO SCH (09:40)
[2018-01-25] MEDS: ASPIRIN 81 MG TABLET, CHEWABLE PO SCH (09:40)
[2018-01-25] MEDS: CARVEDILOL 12.5 MG TABLET PO SCH ×2 (09:40→22:54)
[2018-01-25] MEDS: DOCUSATE SODIUM 100 MG CAPSULE PO SCH ×2 (09:41→17:27)
[2018-01-25] MEDS: CLOPIDOGREL BISULFATE 75 MG TABLET PO SCH (09:41)
[2018-01-25] MEDS: DULOXETINE HCL 30 MG CAPSULE.DR PO SCH (09:41)
[2018-01-25] MEDS: FUROSEMIDE 40 MG TABLET PO SCH (09:41)
[2018-01-25] MEDS: ENOXAPARIN SODIUM INJ 30 MG/0.3 ML DISP.SYRIN SUBCUT SCH (09:41)
[2018-01-25] MEDS: RISPERIDONE 0.25 MG TABLET PO SCH ×2 (09:42→17:28)
[2018-01-25] MEDS: CYANOCOBALAMIN/FA/PYRIDOXINE TABLET PO SCH (09:43)
[2018-01-25] MEDS: NORMAL SALINE 1000 ML 1,000 ML IV PRN (14:10)
--- NOTE | 2018-01-25 14:53 | PDOC PROGRESS REPORT ---
Subjective Progress Note for:: 01/25/18 Subjective:: He is a bit sleepy today possibly from Ambien he got last night. He could not do PT/OT due to sleepiness.We will hold Anish tidwell. His HB/HCT improved to 8.7/26 and BUN/Cr improved to 17/1.3. We will f/u with associate merchandise planner for possible transfer to [facility] on 01/26/2018 or 01/27/2018. Plan of care discussed extensively with family- , daughter, sister in-law and brother in- law. Reason For Visit: THROMBOCYTOSIS,ACUTE RENAL FAILURE,METABOLIC Physical Exam Vital Signs: Temp Pulse Resp BP Pulse Ox 98.5 F 75 16 158/69 H 99 01/25/18 12:11 01/25/18 12:11 01/25/18 12:11 01/25/18 12:11 01/25/18 12:11 Intake & Output 01/24/18 01/25/18 01/26/18 06:59 06:59 06:59 Intake Total 1700 2144 Output Total 200 Balance 1700 1944 Weight 115.1 kg 115.1 kg General appearance: PRESENT: no acute distress, cooperative, obese, well- developed, well-nourished Head exam: PRESENT: atraumatic, normocephalic Eye exam: PRESENT: EOMI, PERRLA Ear exam: PRESENT: normal external ear exam, TM's normal bilaterally Mouth exam: PRESENT: neck supple, tongue midline Neck exam: PRESENT: full ROM Respiratory exam: PRESENT: clear to auscultation maral, symmetrical Cardiovascular exam: PRESENT: +S1, +S2 Pulses: PRESENT: +2 pedal pulses bilateral GI/Abdominal exam: PRESENT: normal bowel sounds, soft Rectal exam: PRESENT: deferred Additional comments: Sleep but arousable. Psychiatric exam: PRESENT: normal mood Results Laboratory Results: 01/25/18 06:27 01/25/18 06:27 01/25/18 01/25/18 06:27 06:27 WBC 9.0 RBC 3.03 L Hgb 8.7 L Hct 26.3 L MCV 87 MCH 28.6 MCHC 32.9 RDW 14.5 H Plt Count 469 H Seg Neutrophils % 78.8 H Lymphocytes % 7.9 L Monocytes % 9.2 Eosinophils % 3.0 Basophils % 1.1 Absolute Neutrophils 7.1 Absolute Lymphocytes 0.7 Absolute Monocytes 0.8 Absolute Eosinophils 0.3 Absolute Basophils 0.1 Sodium 143.5 Potassium 4.2 Chloride 108 H Carbon Dioxide 21 L Anion Gap 15 BUN 17 Creatinine 1.34 H Est GFR ( Amer) > 60 Est GFR (Non-Af Amer) 53 L Glucose 115 H Calcium 9.2 Total Bilirubin 0.4 AST 30 ALT 25 Alkaline Phosphatase 73 Total Protein 6.7 Albumin 3.1 L Impressions: Head CT 01/19/18 14:39 IMPRESSION: CHRONIC CHANGES OF ATROPHY AND MICROVASCULAR ISCHEMIA. NO ACUTE PROCESS. EVIDENCE OF ACUTE STROKE: NO. Extremity Ultrasound 01/21/18 00:00 IMPRESSION: Linear structure in the superficial soft tissues which is nonvascular and is consistent with the clinical suspicions for an IV catheter remaining in the soft tissues. Clinical correlation is recommended. Other findings as noted above Forearm X-Ray 01/21/18 00:00 IMPRESSION: NO ACUTE OSSEOUS ABNORMALITY. NO RADIOPAQUE FOREIGN BODY. IF SYMPTOMS PERSIST CONSIDER FOLLOW-UP ULTRASOUND IN 24-48 HOURS FOR REASSESSMENT. Head MRI 01/21/18 00:00 IMPRESSION: Limited study as noted above. MINIMAL MICROVASCULAR ISCHEMIC CHANGE. OTHERWISE NORMAL STUDY. EVIDENCE OF ACUTE STROKE: NO. Chest X-Ray 01/23/18 00:00 IMPRESSION: No acute cardiopulmonary disease. Assessment & Plan - Diagnosis (1) Altered mental status, unspecified Qualifiers: Altered mental status type: delirium Qualified Code(s): R41.0 - Disorientation, unspecified Is this a current diagnosis for this admission?: Yes Plan: Ct with 4 hourly neurochecks, seizure/falls precautions; CT head was normal; no evidence of infection presently. MRI head was normal.. (2) Metabolic encephalopathy Is this a current diagnosis for this admission?: Yes Plan: Monitor pt closely; 4 hourly neurochecks; seizure/fall precautions; Optimize hydration with IV fluids.Ct with Risperdal 0.25 mg qd, qhs po. (3) Acute kidney injury superimposed on CKD Is this a current diagnosis for this admission?: Yes Plan: Ct with IV fluids normal saline cautiously at 50 cc/hr due to history of CHF. Strict input/out put chart; Daily weight; Avoid all nephrotoxics. Monitor chemistries daily. (4) Hyperkalemia Is this a current diagnosis for this admission?: Yes Plan: It is resolved.Pt had 5% dextrose in water with Insulin and Albuterol nebs at ER; monitor Chemistries daily . (5) Thrombocytosis Is this a current diagnosis for this admission?: Yes Plan: This is possibly reactive. Ct with Aspirin 81 mg qd; DVT prophylaxis; F/u hematology consult with Dr Kumar. (6) Hypertension Qualifiers: Hypertension type: unspecified Qualified Code(s): I10 - Essential (primary ) hypertension Is this a current diagnosis for this admission?: Yes Plan: Ct with Losartan 100 mg qd po; Coreg 12.5 mg BID po; 2 g sodium diet. (7) Hyperlipidemia Qualifiers: Hyperlipidemia type: mixed hyperlipidemia Qualified Code(s): E78.2 - Mixed hyperlipidemia Is this a current diagnosis for this admission?: Yes Plan: Ct with Atorvastatin 10 mg qhs po; 200 mg cholesterol diet. (8) Diastolic CHF Qualifiers: Heart failure chronicity: chronic Qualified Code(s): I50.32 - Chronic diastolic (congestive) heart failure Is this a current diagnosis for this admission?: Yes Plan: Ct with Lasix 40 mg qd PO; Hold KCL due to hyperkalemia. Strict input/out put chart; daily weight;monitor chemistries daily. (9) CAD (coronary artery disease) Is this a current diagnosis for this admission?: Yes Plan: Ct with Plavix 75 mg qd po; Aspirin 81 mg qd po, cardiac diet. (10) Iron (Fe) deficiency anemia Qualifiers: Iron deficiency anemia type: unspecified iron deficiency Qualified Code(s) : D50.9 - Iron deficiency anemia, unspecified Is this a current diagnosis for this admission?: Yes (11) Reflux esophagitis Is this a current diagnosis for this admission?: Yes Plan: Ct with Prevacid 30 mg qd po; Hold Protonix since it is not in our formulary. (12) BPH (benign prostatic hyperplasia) Qualifiers: Lower urinary tract symptom detail: unspecified Is this a current diagnosis for this admission?: Yes Plan: Ct with Flomax 0.4 mg qd po. (13) Arthritis of left knee Is this a current diagnosis for this admission?: Yes Plan: Ct with Tylenol 650 mg q6 po prn. (14) Depression Is this a current diagnosis for this admission?: Yes Plan: Ct with Cymbalta 60 mg qd po. (15) Constipation Qualifiers: Constipation type: unspecified constipation type Qualified Code(s): K59.00 - Constipation, unspecified Is this a current diagnosis for this admission?: Yes Plan: Ct with Colace 100 mg BID po prn. (16) DVT prophylaxis Is this a current diagnosis for this admission?: Yes Plan: Ct with Lovenox 30 mg qd subcut; SCD. (17) Anemia of chronic disease Is this a current diagnosis for this admission?: Yes Plan: No need for Ferrous sulfate; Monitor CBC daily; no indication for PRBC at this point. F/u Dr Kumar.
[2018-01-25] MEDS: TAMSULOSIN HCL 0.4 MG CAP.SR.24H PO SCH (17:27)
[2018-01-25] MEDS ORDERED: PREDNISONE 20 MG TABLET PO ONE (19:00)
[2018-01-25] MEDS: ATORVASTATIN CALCIUM 10 MG TABLET PO SCH (22:54)
[2018-01-26 05:25] LABS: ALANINE AMINOTRANSFERASE 27 U/L (21-72); ALKALINE PHOSPHATASE 77 U/L (38-126); ANION GAP 12 (5-19); ASPARTATE AMINO TRANSFERASE 24 U/L (17-59); BILIRUBIN,DIRECT 0.2 mg/dL (0.0-0.4); BILIRUBIN,TOTAL 0.2 mg/dL (0.2-1.3); BLOOD UREA NITROGEN 15 mg/dL (7-20); CALCIUM 9.1 mg/dL (8.4-10.2); CARBON DIOXIDE 23 mmol/L (22-30); CHLORIDE 110 mmol/L (98-107); GLUCOSE 139 mg/dL (75-110); POTASSIUM 4.7 mmol/L (3.6-5.0); SODIUM 145.2 mmol/L (137-145); TOTAL PROTEIN 6.5 g/dL (6.3-8.2)
[2018-01-26 05:37] LABS: HEMATOCRIT 25.6 % (37.9-51.0); HEMOGLOBIN 8.3 g/dL (13.5-17.0); MEAN CORPUSCULAR HEMOGLOBIN 28.6 pg (27.0-33.4); MEAN CORPUSCULAR HGB CONC 32.6 g/dL (32.0-36.0); MEAN CORPUSCULAR VOLUME 88 fl (80-97); PLATELET COUNT 454 10^3/uL (150-450); RED BLOOD COUNT 2.91 10^6/uL (4.35-5.55); RED CELL DISTRIBUTION WIDTH 14.8 % (11.5-14.0); WHITE BLOOD COUNT 12.3 10^3/uL (4.0-10.5)
[2018-01-26 05:41] LABS: ABSOLUTE LYMPHOCYTES# (MANUAL) 0.4 10^3/uL (0.5-4.7); ABSOLUTE MONOCYTES # (MANUAL) 0.5 10^3/uL (0.1-1.4); ABSOLUTE NEUTROPHILS# (MANUAL) 11.4 10^3/uL (1.7-8.2); BASOPHILS % (MANUAL) 0 % (0-2); EOSINOPHILS % (MANUAL) 0 % (0-6); LYMPHOCYTES % (MANUAL) 3 % (13-45); MONOCYTES % (MANUAL) 4 % (3-13); SEGMENTED NEUTROPHILS % (MAN) 93 % (42-78); TOTAL CELLS COUNTED 100
[2018-01-26 05:42] LABS: ANISOCYTOSIS SLIGHT; HYPOCHROMASIA SLIGHT; PLATELET COMMENT ADEQUATE; PLATELET LARGE PRESENT
[2018-01-26] MEDS: LANSOPRAZOLE 30 MG TAB.RAP.DR PO SCH (05:48)
[2018-01-26] MEDS: RISPERIDONE 0.25 MG TABLET PO SCH ×2 (10:59→20:45)
[2018-01-26] MEDS: DULOXETINE HCL 30 MG CAPSULE.DR PO SCH (10:59)
[2018-01-26] MEDS: CLOPIDOGREL BISULFATE 75 MG TABLET PO SCH (10:59)
[2018-01-26] MEDS: CARVEDILOL 12.5 MG TABLET PO SCH ×2 (10:59→20:45)
[2018-01-26] MEDS: DOCUSATE SODIUM 100 MG CAPSULE PO SCH ×2 (10:59→17:46)
[2018-01-26] MEDS: FUROSEMIDE 40 MG TABLET PO SCH (10:59)
[2018-01-26] MEDS: PREDNISONE 20 MG TABLET PO SCH (10:59)
[2018-01-26] MEDS: CYANOCOBALAMIN/FA/PYRIDOXINE TABLET PO SCH (10:59)
[2018-01-26] MEDS: ENOXAPARIN SODIUM INJ 30 MG/0.3 ML DISP.SYRIN SUBCUT SCH (10:59)
[2018-01-26] MEDS: LOSARTAN POTASSIUM 50 MG TABLET PO SCH (10:59)
[2018-01-26] MEDS: ASPIRIN 81 MG TABLET, CHEWABLE PO SCH (10:59)
[2018-01-26] MEDS: 1/2 NORMAL SALINE 1,000 ML IV PRN (11:06)
--- NOTE | 2018-01-26 16:39 | PDOC PROGRESS REPORT ---
Subjective Progress Note for:: 01/26/18 Subjective:: He is much awake today and walked around the hallway with walker with physical therapy.The family including the is happy. He is for transfer to [facility] tomorrow. Reason For Visit: THROMBOCYTOSIS,ACUTE RENAL FAILURE,METABOLIC Physical Exam Vital Signs: Temp Pulse Resp BP Pulse Ox 98.2 F 73 16 148/57 H 98 01/26/18 16:00 01/26/18 16:00 01/26/18 16:00 01/26/18 16:00 01/26/18 16:00 Intake & Output 01/25/18 01/26/18 01/27/18 06:59 06:59 06:59 Intake Total 2144 1898 717 Output Total 200 400 Balance 1943 1898 317 Weight 115.1 kg 115.1 kg General appearance: PRESENT: no acute distress, obese, well-developed, well- nourished Head exam: PRESENT: atraumatic, normocephalic Eye exam: PRESENT: EOMI, PERRLA Ear exam: PRESENT: normal external ear exam, TM's normal bilaterally Mouth exam: PRESENT: moist, neck supple, tongue midline Respiratory exam: PRESENT: clear to auscultation maral, symmetrical Cardiovascular exam: PRESENT: +S1, +S2 Pulses: PRESENT: +2 pedal pulses bilateral GI/Abdominal exam: PRESENT: normal bowel sounds, soft Rectal exam: PRESENT: deferred Extremities exam: PRESENT: full ROM Musculoskeletal exam: PRESENT: full ROM Neurological exam: PRESENT: alert, awake, oriented to person, oriented to place Psychiatric exam: PRESENT: normal mood Results Laboratory Results: 01/26/18 04:06 01/26/18 04:06 01/26/18 01/26/18 04:06 04:06 WBC 12.3 H RBC 2.91 L Hgb 8.3 L Hct 25.6 L MCV 88 MCH 28.6 MCHC 32.6 RDW 14.8 H Plt Count 454 H Seg Neutrophils % Not Reportable Lymphocytes % Not Reportable Monocytes % Not Reportable Eosinophils % Not Reportable Basophils % Not Reportable Absolute Neutrophils Not Reportable Absolute Lymphocytes Not Reportable Absolute Monocytes Not Reportable Absolute Eosinophils Not Reportable Absolute Basophils Not Reportable Sodium 145.2 H Potassium 4.7 Chloride 110 H Carbon Dioxide 23 Anion Gap 12 BUN 15 Creatinine 1.41 H Est GFR ( Amer) > 60 Est GFR (Non-Af Amer) 50 L Glucose 139 H Calcium 9.1 Total Bilirubin 0.2 AST 24 ALT 27 Alkaline Phosphatase 77 Total Protein 6.5 Albumin 3.0 L Impressions: Head CT 01/19/18 14:39 IMPRESSION: CHRONIC CHANGES OF ATROPHY AND MICROVASCULAR ISCHEMIA. NO ACUTE PROCESS. EVIDENCE OF ACUTE STROKE: NO. Extremity Ultrasound 01/21/18 00:00 IMPRESSION: Linear structure in the superficial soft tissues which is nonvascular and is consistent with the clinical suspicions for an IV catheter remaining in the soft tissues. Clinical correlation is recommended. Other findings as noted above Forearm X-Ray 01/21/18 00:00 IMPRESSION: NO ACUTE OSSEOUS ABNORMALITY. NO RADIOPAQUE FOREIGN BODY. IF SYMPTOMS PERSIST CONSIDER FOLLOW-UP ULTRASOUND IN 24-48 HOURS FOR REASSESSMENT. Head MRI 01/21/18 00:00 IMPRESSION: Limited study as noted above. MINIMAL MICROVASCULAR ISCHEMIC CHANGE. OTHERWISE NORMAL STUDY. EVIDENCE OF ACUTE STROKE: NO. Chest X-Ray 01/23/18 00:00 IMPRESSION: No acute cardiopulmonary disease. Assessment & Plan - Diagnosis (1) Altered mental status, unspecified Qualifiers: Altered mental status type: delirium Qualified Code(s): R41.0 - Disorientation, unspecified Is this a current diagnosis for this admission?: Yes Plan: Ct with 4 hourly neurochecks, seizure/falls precautions; CT head was normal; no evidence of infection presently. MRI head was normal.. (2) Metabolic encephalopathy Is this a current diagnosis for this admission?: Yes Plan: Monitor pt closely; 4 hourly neurochecks; seizure/fall precautions; Optimize hydration with IV fluids.Ct with Risperdal 0.25 mg qd, qhs po. (3) Acute kidney injury superimposed on CKD Is this a current diagnosis for this admission?: Yes Plan: Ct with IV fluids half normal saline cautiously at 50 cc/hr due to history of CHF. Strict input/out put chart; Daily weight; Avoid all nephrotoxics. Monitor chemistries daily. (4) Hyperkalemia Is this a current diagnosis for this admission?: Yes Plan: It is resolved.Pt had 5% dextrose in water with Insulin and Albuterol nebs at ER; monitor Chemistries daily . (5) Thrombocytosis Is this a current diagnosis for this admission?: Yes Plan: This is possibly reactive. Ct with Aspirin 81 mg qd; DVT prophylaxis; F/u hematology consult with Dr Kumar. (6) Hypertension Qualifiers: Hypertension type: unspecified Qualified Code(s): I10 - Essential (primary ) hypertension Is this a current diagnosis for this admission?: Yes Plan: Ct with Losartan 100 mg qd po; Coreg 12.5 mg BID po; 2 g sodium diet. (7) Hyperlipidemia Qualifiers: Hyperlipidemia type: mixed hyperlipidemia Qualified Code(s): E78.2 - Mixed hyperlipidemia Is this a current diagnosis for this admission?: Yes Plan: Ct with Atorvastatin 10 mg qhs po; 200 mg cholesterol diet. (8) Diastolic CHF Qualifiers: Heart failure chronicity: chronic Qualified Code(s): I50.32 - Chronic diastolic (congestive) heart failure Is this a current diagnosis for this admission?: Yes Plan: Ct with Lasix 40 mg qd PO; Hold KCL due to hyperkalemia. Strict input/out put chart; daily weight;monitor chemistries daily. (9) CAD (coronary artery disease) Is this a current diagnosis for this admission?: Yes Plan: Ct with Plavix 75 mg qd po; Aspirin 81 mg qd po, cardiac diet. (10) Iron (Fe) deficiency anemia Qualifiers: Iron deficiency anemia type: unspecified iron deficiency Qualified Code(s) : D50.9 - Iron deficiency anemia, unspecified Is this a current diagnosis for this admission?: Yes (11) Reflux esophagitis Is this a current diagnosis for this admission?: Yes Plan: Ct with Prevacid 30 mg qd po; Hold Protonix since it is not in our formulary. (12) BPH (benign prostatic hyperplasia) Qualifiers: Lower urinary tract symptom detail: unspecified Is this a current diagnosis for this admission?: Yes Plan: Ct with Flomax 0.4 mg qd po. (13) Arthritis of left knee Is this a current diagnosis for this admission?: Yes Plan: Ct with Tylenol 650 mg q6 po prn. (14) Depression Is this a current diagnosis for this admission?: Yes Plan: Ct with Cymbalta 60 mg qd po. (15) Constipation Qualifiers: Constipation type: unspecified constipation type Qualified Code(s): K59.00 - Constipation, unspecified Is this a current diagnosis for this admission?: Yes Plan: Ct with Colace 100 mg BID po prn. (16) DVT prophylaxis Is this a current diagnosis for this admission?: Yes Plan: Ct with Lovenox 30 mg qd subcut; SCD. (17) Anemia of chronic disease Is this a current diagnosis for this admission?: Yes Plan: No need for Ferrous sulfate; Monitor CBC daily; no indication for PRBC at this point. F/u Dr Kumar.
[2018-01-26] MEDS: TAMSULOSIN HCL 0.4 MG CAP.SR.24H PO SCH (17:46)
[2018-01-26] MEDS: ATORVASTATIN CALCIUM 10 MG TABLET PO SCH (20:45)
[2018-01-27 05:04] LABS: ABSOLUTE LYMPHOCYTES (AUTO) 0.7 10^3/uL (0.5-4.7); ABSOLUTE MONOCYTES (AUTO) 0.6 10^3/uL (0.1-1.4); ABSOLUTE NEUT (AUTO) 11.7 10^3/uL (1.7-8.2); BASOPHILS % (AUTO) 0.4 % (0-2); LYMPHOCYTES % (AUTO) 5.3 % (13-45); MEAN CORPUSCULAR HEMOGLOBIN 28.4 pg (27.0-33.4); MEAN CORPUSCULAR HGB CONC 32.8 g/dL (32.0-36.0); MEAN CORPUSCULAR VOLUME 87 fl (80-97); MONOCYTES % (AUTO) 4.7 % (3-13); PLATELET COUNT 441 10^3/uL (150-450); RED BLOOD COUNT 2.76 10^6/uL (4.35-5.55); RED CELL DISTRIBUTION WIDTH 15.1 % (11.5-14.0); SEGMENTED NEUTROPHILS % (AUTO) 89.6 % (42-78); TOTAL CELLS COUNTED % (AUTO) 100 %
[2018-01-27 05:11] LABS: HEMOGLOBIN 7.9 g/dL (13.5-17.0)
[2018-01-27 05:31] LABS: ALANINE AMINOTRANSFERASE 32 U/L (21-72); ALKALINE PHOSPHATASE 68 U/L (38-126); ANION GAP 10 (5-19); ASPARTATE AMINO TRANSFERASE 30 U/L (17-59); BILIRUBIN,DIRECT 0.2 mg/dL (0.0-0.4); BILIRUBIN,TOTAL 0.2 mg/dL (0.2-1.3); BLOOD UREA NITROGEN 24 mg/dL (7-20); CALCIUM 9.2 mg/dL (8.4-10.2); CARBON DIOXIDE 25 mmol/L (22-30); CHLORIDE 110 mmol/L (98-107); GLUCOSE 135 mg/dL (75-110); POTASSIUM 4.7 mmol/L (3.6-5.0); SODIUM 145.2 mmol/L (137-145); TOTAL PROTEIN 6.5 g/dL (6.3-8.2)
[2018-01-27] MEDS: LANSOPRAZOLE 30 MG TAB.RAP.DR PO SCH (05:54)
[2018-01-27] MEDS: 1/2 NORMAL SALINE 1,000 ML IV PRN (05:55)
[2018-01-27] MEDS: PREDNISONE 20 MG TABLET PO SCH (11:05)
[2018-01-27] MEDS: CARVEDILOL 12.5 MG TABLET PO SCH ×2 (11:05→22:47)
[2018-01-27] MEDS: ASPIRIN 81 MG TABLET, CHEWABLE PO SCH (11:06)
[2018-01-27] MEDS: ENOXAPARIN SODIUM INJ 30 MG/0.3 ML DISP.SYRIN SUBCUT SCH (11:06)
[2018-01-27] MEDS: DULOXETINE HCL 30 MG CAPSULE.DR PO SCH (11:06)
[2018-01-27] MEDS: FUROSEMIDE 40 MG TABLET PO SCH (11:07)
[2018-01-27] MEDS: CLOPIDOGREL BISULFATE 75 MG TABLET PO SCH (11:07)
[2018-01-27] MEDS: LOSARTAN POTASSIUM 50 MG TABLET PO SCH (11:07)
[2018-01-27] MEDS: RISPERIDONE 0.25 MG TABLET PO SCH ×2 (11:07→22:47)
[2018-01-27] MEDS: CYANOCOBALAMIN/FA/PYRIDOXINE TABLET PO SCH (11:08)
[2018-01-27] MEDS: DOCUSATE SODIUM 100 MG CAPSULE PO SCH ×2 (11:08→17:35)
--- NOTE | 2018-01-27 16:38 | PDOC PROGRESS REPORT ---
Subjective Progress Note for:: 01/27/18 Subjective:: Pt is a little bit confused today because did not get Ambien last night and did not sleep as per the nurse. We will hold the transfer to [facility] today and for possible transfer tomorrow.We will make sure he gets Ambien 5mg qhs tonight. Reason For Visit: THROMBOCYTOSIS,ACUTE RENAL FAILURE,METABOLIC Physical Exam Vital Signs: Temp Pulse Resp BP Pulse Ox 98.5 F 67 20 169/54 H 97 01/27/18 12:02 01/27/18 12:02 01/27/18 12:02 01/27/18 12:02 01/27/18 12:02 Intake & Output 01/26/18 01/27/18 01/28/18 06:59 06:59 06:59 Intake Total 1898 2367 477 Output Total 400 Balance 1898 1967 477 Weight 115.1 kg 115.2 kg General appearance: PRESENT: no acute distress, cooperative, obese, well- developed, well-nourished Head exam: PRESENT: atraumatic, normocephalic Eye exam: PRESENT: EOMI, PERRLA Ear exam: PRESENT: normal external ear exam, TM's normal bilaterally Mouth exam: PRESENT: moist, neck supple, tongue midline Neck exam: PRESENT: full ROM Respiratory exam: PRESENT: clear to auscultation maral, symmetrical Cardiovascular exam: PRESENT: +S1, +S2 Pulses: PRESENT: +2 pedal pulses bilateral GI/Abdominal exam: PRESENT: normal bowel sounds, soft Rectal exam: PRESENT: deferred Extremities exam: PRESENT: full ROM Musculoskeletal exam: PRESENT: full ROM Neurological exam: PRESENT: alert, oriented to person, oriented to place Psychiatric exam: PRESENT: normal mood Results Laboratory Results: 01/27/18 03:56 01/27/18 03:56 01/27/18 01/27/18 03:56 03:56 WBC 13.0 H RBC 2.76 L Hgb 7.9 L Hct 24.0 L MCV 87 MCH 28.4 MCHC 32.8 RDW 15.1 H Plt Count 441 Seg Neutrophils % 89.6 H Lymphocytes % 5.3 L Monocytes % 4.7 Eosinophils % 0.0 Basophils % 0.4 Absolute Neutrophils 11.7 H Absolute Lymphocytes 0.7 Absolute Monocytes 0.6 Absolute Eosinophils 0.0 Absolute Basophils 0.0 Sodium 145.2 H Potassium 4.7 Chloride 110 H Carbon Dioxide 25 Anion Gap 10 BUN 24 H Creatinine 1.38 H Est GFR ( Amer) > 60 Est GFR (Non-Af Amer) 51 L Glucose 135 H Calcium 9.2 Total Bilirubin 0.2 AST 30 ALT 32 Alkaline Phosphatase 68 Total Protein 6.5 Albumin 3.0 L Impressions: Head CT 01/19/18 14:39 IMPRESSION: CHRONIC CHANGES OF ATROPHY AND MICROVASCULAR ISCHEMIA. NO ACUTE PROCESS. EVIDENCE OF ACUTE STROKE: NO. Extremity Ultrasound 01/21/18 00:00 IMPRESSION: Linear structure in the superficial soft tissues which is nonvascular and is consistent with the clinical suspicions for an IV catheter remaining in the soft tissues. Clinical correlation is recommended. Other findings as noted above Forearm X-Ray 01/21/18 00:00 IMPRESSION: NO ACUTE OSSEOUS ABNORMALITY. NO RADIOPAQUE FOREIGN BODY. IF SYMPTOMS PERSIST CONSIDER FOLLOW-UP ULTRASOUND IN 24-48 HOURS FOR REASSESSMENT. Head MRI 01/21/18 00:00 IMPRESSION: Limited study as noted above. MINIMAL MICROVASCULAR ISCHEMIC CHANGE. OTHERWISE NORMAL STUDY. EVIDENCE OF ACUTE STROKE: NO. Chest X-Ray 01/23/18 00:00 IMPRESSION: No acute cardiopulmonary disease. Assessment & Plan - Diagnosis (1) Altered mental status, unspecified Qualifiers: Altered mental status type: delirium Qualified Code(s): R41.0 - Disorientation, unspecified Is this a current diagnosis for this admission?: Yes Plan: Ct with 4 hourly neurochecks, seizure/falls precautions; CT head was normal; no evidence of infection presently. MRI head was normal.. (2) Metabolic encephalopathy Is this a current diagnosis for this admission?: Yes Plan: Monitor pt closely; 4 hourly neurochecks; seizure/fall precautions; Optimize hydration with IV fluids.Ct with Risperdal 0.25 mg BID po. (3) Acute kidney injury superimposed on CKD Is this a current diagnosis for this admission?: Yes Plan: Ct with IV fluids half normal saline cautiously at 50 cc/hr due to history of CHF. Strict input/out put chart; Daily weight; Avoid all nephrotoxics. Monitor chemistries daily. (4) Hyperkalemia Is this a current diagnosis for this admission?: Yes Plan: It is resolved.Pt had 5% dextrose in water with Insulin and Albuterol nebs at ER; monitor Chemistries daily . (5) Thrombocytosis Is this a current diagnosis for this admission?: Yes Plan: This is possibly reactive. Ct with Aspirin 81 mg qd; DVT prophylaxis; F/u hematology consult with Dr Kumar. (6) Hypertension Qualifiers: Hypertension type: unspecified Qualified Code(s): I10 - Essential (primary ) hypertension Is this a current diagnosis for this admission?: Yes Plan: Ct with Losartan 100 mg qd po; Coreg 12.5 mg BID po; 2 g sodium diet. (7) Hyperlipidemia Qualifiers: Hyperlipidemia type: mixed hyperlipidemia Qualified Code(s): E78.2 - Mixed hyperlipidemia Is this a current diagnosis for this admission?: Yes Plan: Ct with Atorvastatin 10 mg qhs po; 200 mg cholesterol diet. (8) Diastolic CHF Qualifiers: Heart failure chronicity: chronic Qualified Code(s): I50.32 - Chronic diastolic (congestive) heart failure Is this a current diagnosis for this admission?: Yes Plan: Ct with Lasix 40 mg qd PO; Hold KCL due to hyperkalemia. Strict input/out put chart; daily weight;monitor chemistries daily. (9) CAD (coronary artery disease) Is this a current diagnosis for this admission?: Yes Plan: Ct with Plavix 75 mg qd po; Aspirin 81 mg qd po, cardiac diet. (10) Iron (Fe) deficiency anemia Qualifiers: Iron deficiency anemia type: unspecified iron deficiency Qualified Code(s) : D50.9 - Iron deficiency anemia, unspecified Is this a current diagnosis for this admission?: Yes (11) Reflux esophagitis Is this a current diagnosis for this admission?: Yes Plan: Ct with Prevacid 30 mg qd po; Hold Protonix since it is not in our formulary. (12) BPH (benign prostatic hyperplasia) Qualifiers: Lower urinary tract symptom detail: unspecified Is this a current diagnosis for this admission?: Yes Plan: Ct with Flomax 0.4 mg qd po. (13) Arthritis of left knee Is this a current diagnosis for this admission?: Yes Plan: Ct with Tylenol 650 mg q6 po prn. (14) Depression Is this a current diagnosis for this admission?: Yes Plan: Ct with Cymbalta 60 mg qd po. (15) Constipation Qualifiers: Constipation type: unspecified constipation type Qualified Code(s): K59.00 - Constipation, unspecified Is this a current diagnosis for this admission?: Yes Plan: Ct with Colace 100 mg BID po prn. (16) DVT prophylaxis Is this a current diagnosis for this admission?: Yes Plan: Ct with Lovenox 30 mg qd subcut; SCD. (17) Anemia of chronic disease Is this a current diagnosis for this admission?: Yes Plan: No need for Ferrous sulfate; Monitor CBC daily; no indication for PRBC at this point. F/u Dr Kumar.
[2018-01-27] MEDS: TAMSULOSIN HCL 0.4 MG CAP.SR.24H PO SCH (17:35)
[2018-01-27] MEDS ORDERED: ZOLPIDEM TARTRATE 5 MG TABLET PO SCH (22:00)
[2018-01-27] MEDS: ATORVASTATIN CALCIUM 10 MG TABLET PO SCH (22:47)
[2018-01-28] MEDS: LANSOPRAZOLE 30 MG TAB.RAP.DR PO SCH (06:14)
[2018-01-28] MEDS: LOSARTAN POTASSIUM 50 MG TABLET PO SCH (09:07)
[2018-01-28] MEDS: ASPIRIN 81 MG TABLET, CHEWABLE PO SCH (09:07)
[2018-01-28] MEDS: CLOPIDOGREL BISULFATE 75 MG TABLET PO SCH (09:07)
[2018-01-28] MEDS: RISPERIDONE 0.25 MG TABLET PO SCH (09:08)
[2018-01-28] MEDS: DULOXETINE HCL 30 MG CAPSULE.DR PO SCH (09:08)
[2018-01-28] MEDS: CARVEDILOL 12.5 MG TABLET PO SCH (09:08)
[2018-01-28] MEDS: DOCUSATE SODIUM 100 MG CAPSULE PO SCH (09:08)
[2018-01-28] MEDS: CYANOCOBALAMIN/FA/PYRIDOXINE TABLET PO SCH (09:08)
[2018-01-28] MEDS: PREDNISONE 20 MG TABLET PO SCH (09:08)
[2018-01-28] MEDS: FUROSEMIDE 40 MG TABLET PO SCH (09:08)
[2018-01-28] MEDS: ENOXAPARIN SODIUM INJ 30 MG/0.3 ML DISP.SYRIN SUBCUT SCH (09:09)
--- NOTE | 2018-01-28 10:47 | PDOC TRANSFER SUMMARY ---
General - Admit/Disc Date/PCP Admission Date/Primary Care Provider: 01/19/18 16:55 KERVIN CORBETT Discharge Date: 01/28/18 - Discharge Diagnosis (1) Altered mental status, unspecified Is this a current diagnosis for this admission?: Yes (2) Metabolic encephalopathy Is this a current diagnosis for this admission?: Yes (3) Acute kidney injury superimposed on CKD Is this a current diagnosis for this admission?: Yes (4) Hyperkalemia Is this a current diagnosis for this admission?: Yes (5) Thrombocytosis Is this a current diagnosis for this admission?: Yes (6) Hypertension Is this a current diagnosis for this admission?: Yes (7) Hyperlipidemia Is this a current diagnosis for this admission?: Yes (8) Diastolic CHF Is this a current diagnosis for this admission?: Yes (9) CAD (coronary artery disease) Is this a current diagnosis for this admission?: Yes (10) Iron (Fe) deficiency anemia Is this a current diagnosis for this admission?: Yes (11) Reflux esophagitis Is this a current diagnosis for this admission?: Yes (12) BPH (benign prostatic hyperplasia) Is this a current diagnosis for this admission?: Yes (13) Arthritis of left knee Is this a current diagnosis for this admission?: Yes (14) Depression Is this a current diagnosis for this admission?: Yes (15) Constipation Is this a current diagnosis for this admission?: Yes (16) DVT prophylaxis Is this a current diagnosis for this admission?: Yes (17) Anemia of chronic disease Is this a current diagnosis for this admission?: Yes - Additional Information Prescriptions: Zolpidem Tartrate [Ambien 5 mg Tablet] 5 mg PO QHS #30 tablet Docusate Sodium [Colace 100 mg Capsule] 100 mg PO BID PRN #60 capsule PRN Reason: Prednisone [Deltasone 20 mg Tablet] 20 mg PO DAILY #7 tablet Risperidone [Risperdal 0.25 mg Tablet] 0.25 mg PO Q12 #60 tablet Home Medications: Duloxetine HCl [Cymbalta] 60 mg PO DAILY 09/23/13 Pantoprazole Sodium [Protonix] 40 mg PO DAILY 11/23/13 Atorvastatin Calcium [Lipitor 10 mg Tablet] 10 mg PO QHS 12/11/13 Clopidogrel Bisulfate [Plavix 75 mg Tablet] 75 mg PO DAILY 04/17/14 Tamsulosin HCl [Flomax] 0.4 mg PO QHS #30 cap.sr.24h 09/06/14 Carvedilol [Coreg 6.25 mg Tablet] 12.5 mg PO Q12 07/28/16 Losartan Potassium 100 mg PO DAILY 07/28/16 Meloxicam [Mobic] 15 mg PO DAILYP PRN 12/22/17 Acetaminophen [Tylenol 325 mg Tablet] 650 mg PO Q6HP PRN tablet 01/28/18 Aspirin [Aspirin 81 mg Chewable Tablet] 81 mg PO DAILY tab.chew 01/28/18 Cyanocobalamin/FA/Pyridoxine [Folbee Tablet] 1 tab PO DAILY tablet 01/28/18 Docusate Sodium [Colace 100 mg Capsule] 100 mg PO BID PRN #60 capsule 01/28/18 Furosemide [Lasix 20 mg Tablet] 40 mg PO DAILY #0 01/28/18 Prednisone [Deltasone 20 mg Tablet] 20 mg PO DAILY #7 tablet 01/28/18 Risperidone [Risperdal 0.25 mg Tablet] 0.25 mg PO Q12 #60 tablet 01/28/18 Zolpidem Tartrate [Ambien 5 mg Tablet] 5 mg PO QHS #30 tablet 01/28/18 History of Present Illness Admission Date/PCP: 01/19/18 16:55 KERVIN CORBETT History of Present Illness: ANSHU MCNAMARA is a 72 year old male with hx of HTN/Hyperlipidemia/ CHF/ CAD s.p stentsx2/Mitral valve regurgitation s.p tissue valve replacement/ CKD stage 3/GERD/BPH/Osteoarthritis/Fe. def. anemia/Pre diabetes/Vitamin D def/Depression , who had left knee arthroplasty by Dr Arzate about a month ago. According to his , he started having confusion shortly after discharge from hospital and has been worse in the past 2 weeks. He also has visual and tactile hallucinations. His appetite has not not been good, but no fever, cough, nausea/ vomiting, cough, chest pain, dyspnea, headache, dysuria, frequency, abd. pain, diarrhea. On account of the worsening of these symptoms, pt was brought to ER for evaluation. Hospital Course Hospital Course: 72 year old man who was admitted to [facility] for altered mental status/Acute kidney injury in pt with CKD 3/Acute metabolic encephalopathy/Hyperkalemia/reactive thrombocytosis.He had left knee arthroplasty about 1 month prior to this admission by Dr Arzate. He was started on IV fluids, hematology consult with Dr Kumar, had CT head and MRI head with contrast that were normal. He was noted to have sleep deprivation which could have contributed to his acute mental change and was put on Ambien 5 mg qhs and Risperdal -.25 mg BID which helped him a lot.He had an acute flare up of gouty arthropathy [facility] and was put on Prednisone 20 mg qd po which helped a lot and is almost resolved; he will be discharged with 7 more days of prednisone. he can then be put on Allopurinol 100 mg qd after completion of Prednisone.He is stable now and back to his baseline. He will need further physical therapy for his left knee surgery and the family requested for [facility]. He has been accepted ther and will be transferred there today for acute REHAB. Pt and his are in agreement with this plan of care. Physical Exam Vital Signs: Temp Pulse Resp BP Pulse Ox 98.0 F 65 17 175/74 H 99 01/28/18 07:12 01/28/18 07:12 01/28/18 07:12 01/28/18 07:12 01/28/18 07:12 Intake & Output 01/27/18 01/28/18 01/29/18 06:59 06:59 06:59 Intake Total 2367 3642 Output Total 400 200 Balance 1967 3442 Weight 115.2 kg 111 kg General appearance: PRESENT: no acute distress, cooperative, obese, well- developed, well-nourished Head exam: PRESENT: atraumatic, normocephalic Eye exam: PRESENT: EOMI, PERRLA Mouth exam: PRESENT: neck supple, tongue midline Respiratory exam: PRESENT: chest wall tenderness, clear to auscultation maral, symmetrical. ABSENT: accessory muscle use, crackles, decreased breath sounds, prolonged expiratory phas, rales, retraction, rhonchi, stridor, tachypnea, unlabored, wheezes, other Cardiovascular exam: PRESENT: +S1, +S2 Pulses: PRESENT: +2 pedal pulses bilateral GI/Abdominal exam: PRESENT: normal bowel sounds, soft Rectal exam: PRESENT: deferred Neurological exam: PRESENT: alert, awake, oriented to person, oriented to place Psychiatric exam: PRESENT: normal mood Results Laboratory Results: 01/27/18 03:56 01/27/18 03:56 Impressions: Head CT 01/19/18 14:39 IMPRESSION: CHRONIC CHANGES OF ATROPHY AND MICROVASCULAR ISCHEMIA. NO ACUTE PROCESS. EVIDENCE OF ACUTE STROKE: NO. Extremity Ultrasound 01/21/18 00:00 IMPRESSION: Linear structure in the superficial soft tissues which is nonvascular and is consistent with the clinical suspicions for an IV catheter remaining in the soft tissues. Clinical correlation is recommended. Other findings as noted above Forearm X-Ray 01/21/18 00:00 IMPRESSION: NO ACUTE OSSEOUS ABNORMALITY. NO RADIOPAQUE FOREIGN BODY. IF SYMPTOMS PERSIST CONSIDER FOLLOW-UP ULTRASOUND IN 24-48 HOURS FOR REASSESSMENT. Head MRI 01/21/18 00:00 IMPRESSION: Limited study as noted above. MINIMAL MICROVASCULAR ISCHEMIC CHANGE. OTHERWISE NORMAL STUDY. EVIDENCE OF ACUTE STROKE: NO. Chest X-Ray 01/23/18 00:00 IMPRESSION: No acute cardiopulmonary disease. Transfer Plan - Time Spent with Patient Time spent with patient: Greater than 30 Minutes Qualifiers - * PATIENT BEING DISCHARGED WITH ANY OF THE FOLLOWING DIAGNOSIS: No
[2018-01-28 12:20] VITALS: BP 182/72
== END 2018-01-28 13:51 | DRG 682 ==
LOC: ER 12:52 → EH 16:55 → OBSVTOIN 16:55 → 5 20:55
PROVIDERS: ADMIT Internal Medicine; ATTEND Internal Medicine
PROC: BH47ZZZ Ultrasonography of Upper Extremity (ICD-10-PCS; principal; 2018-01-21)
DX: N17.9 Acute kidney failure, unspecified (principal); G93.41 Metabolic encephalopathy; I13.0 Hypertensive heart and chronic kidney disease with heart failure and stage 1 through stage 4 chronic kidney disease, or unspecified chronic kidney disease; I50.32 Chronic diastolic (congestive) heart failure; E87.5 Hyperkalemia; D47.3 Essential (hemorrhagic) thrombocythemia; I25.10 Atherosclerotic heart disease of native coronary artery without angina pectoris; D50.9 Iron deficiency anemia, unspecified; K21.0 Gastro-esophageal reflux disease with esophagitis; N40.0 Benign prostatic hyperplasia without lower urinary tract symptoms; F32.9 Major depressive disorder, single episode, unspecified; K59.00 Constipation, unspecified; D63.1 Anemia in chronic kidney disease; I34.0 Nonrheumatic mitral (valve) insufficiency; N18.3 Chronic kidney disease, stage 3 (moderate); E55.9 Vitamin D deficiency, unspecified; M17.0 Bilateral primary osteoarthritis of knee; M16.0 Bilateral primary osteoarthritis of hip; E78.2 Mixed hyperlipidemia; Z96.652 Presence of left artificial knee joint; Z79.899 Other long term (current) drug therapy; Z95.5 Presence of coronary angioplasty implant and graft; Z95.2 Presence of prosthetic heart valve; Z87.891 Personal history of nicotine dependence; Z83.3 Family history of diabetes mellitus; Z82.49 Family history of ischemic heart disease and other diseases of the circulatory system
CPT/HCPCS: 36415; 36600; 70450; 70551; 71045; 76882; 80053; 80061; 81001; 82140; 82607; 82728; 82746; 82803; 82962; 83540; 83550; 83605; 83615; 84153; 84443; 85025; 85027; 85045; 85610; 87040; 87086; 93005; 93010; 94640; 96365; 96375; 99285; G8978-GP; G8979-GP; G8987-GO; G8988-GO; J0696; J1650; J1815; J3490; J7030; J7512

== ENCOUNTER 2018-11-11 14:38 | Emergency (ER) | payer MEDICARE, BC ==
[2018-11-11 14:50] VITALS: BP 132/76
== END 2018-11-11 20:27 | disposition left against medical advice (07) ==
LOC: ER 14:38
DX: Z53.21 Procedure and treatment not carried out due to patient leaving prior to being seen by health care provider (principal)

== ENCOUNTER 2019-01-04 01:42 | Observation (INO) | payer MEDICARE, BC ==
--- NOTE | 2019-01-04 02:01 | ER Document Report ---
ED General - General Chief Complaint: Breathing Difficulty Stated Complaint: DIFFICULTY BREATHING Time Seen by Provider: 01/04/19 01:58 Primary Care Provider: KERVIN CORBETT MD [Primary Care Provider] - Follow up as needed Notes: Patient is a 73-year-old male with history of CHF, hypertension, hyperlipidemia and CAD that presents to the emergency department for chief complaint of shortness of breath and dyspnea on exertion. Patient reports she is been having progressively worsened shortness of breath over the past 30 days, but worse in the last 2 days, has had a productive cough as well. Denies any fevers, chills, night sweats, chest pain, nausea or vomiting. He states he is having body aches all over related to his arthritis as well. He states he is unable to walk more than 3 to 5 feet without getting significantly short of breath and having to take a rest. He does not wear oxygen at home. Denies history of COPD, emphysema. Past Medical History: CHF, CAD, hypertension, hyperlipidemia, osteoarthritis, GERD Past Surgical History: Aortic valve replacement, left hip ORIF, PCI with stenting Social History: Denies tobacco, alcohol or drug use. Primary care physician is Dr. Corbett Family History: Reviewed and noncontributory for presenting illness Allergies: Reviewed, see documented allergy list. REVIEW OF SYSTEMS: Other than noted above, the 12 point review of systems was reviewed with the patient and were negative, all pertinent findings are included in the HPI. PHYSICAL EXAMINATION: Vital signs reviewed, nursing noted reviewed. GENERAL: Obese male, has somewhat labored breathing HEAD: Atraumatic, normocephalic. EYES: Eyes appear normal, extraocular movements intact, sclera anicteric, conjunctiva are normal. ENT: nares patent, oropharynx clear without exudates. Moist mucous membranes. NECK: Normal range of motion, supple without lymphadenopathy LUNGS: Breath sounds are diminished bilaterally, there is some scant wheezing noted, and increased work of breathing. HEART: Regular rate and rhythm without murmurs ABDOMEN: Soft, obese nontender, normoactive bowel sounds. No rebound, guarding, or rigidity. No masses appreciated. EXTREMITIES: Nontender, good range of motion, 2-3+ pitting edema to the proximal tibias bilaterally. NEUROLOGICAL: No focal neurological deficits. Moves all extremities spontaneously Motor and sensory grossly intact on exam. PSYCH: Normal mood, normal affect. SKIN: Warm, Dry, normal turgor, no rashes or lesions noted on exposed skin TRAVEL OUTSIDE OF THE [place] IN LAST 30 DAYS: No - Related Data Allergies/Adverse Reactions: No Known Allergies Allergy (Verified 01/04/19 03:05) Past Medical History - Social History Smoking Status: Never Smoker Family History: CAD, DM, Hypertension - Past Medical History Cardiac Medical History: Reports: Hx Congestive Heart Failure, Hx Coronary Artery Disease, Hx Hypercholesterolemia, Hx Hypertension Denies: Hx Atrial Fibrillation, Hx Heart Attack, Hx Peripheral Vascular Disease, Hx Heart Murmur Pulmonary Medical History: Reports: Hx Pneumonia Denies: Hx Asthma, Hx Bronchitis, Hx COPD, Hx Sleep Apnea, Hx Tuberculosis Neurological Medical History: Denies: Hx Cerebrovascular Accident, Hx Seizures Endocrine Medical History: Denies: Hx Hyperthyroidism, Hx Hypothyroidism Renal/ Medical History: Reports: Hx Benign Prostatic Hyperplasia, Hx Renal Insufficiency. Denies: Hx Kidney Stones, Hx Peritoneal Dialysis GI Medical History: Reports: Hx Gastroesophageal Reflux Disease. Denies: Hx Crohn's Disease, Hx Hiatal Hernia, Hx Irritable Bowel, Hx Liver Failure, Hx Pancreatitis, Hx Ulcer Musculoskeletal Medical History: Reports Hx Arthritis - knees, hips , Denies Hx Fibromyalgia, Denies Hx Muscular Dystrophy Psychiatric Medical History: Denies: Hx Bipolar Disorder, Hx Depression Traumatic Medical History: Reports: Hx Fractures - hip Past Surgical History: Reports: Hx Cardiac Catheterization, Hx Cardiac Surgery - stents, Hx Coronary Stent, Hx Orthopedic Surgery - left hip fx, Other - Patient tells me he has had an aortic valve replacement. I cannot verify. Denies: Hx Appendectomy, Hx Bowel Surgery, Hx Cholecystectomy, Hx Colostomy, Hx Coronary Artery Bypass Graft, Hx Gastric Bypass Surgery, Hx Herniorrhaphy, Hx Tonsillectomy - Immunizations Hx Diphtheria, Pertussis, Tetanus Vaccination: Yes - unknown Hx Pneumococcal Vaccination: 08/26/13 Physical Exam - Vital signs Vitals: Temp Resp 97.9 F 94 H 01/04/19 01:43 01/04/19 01:43 Course - Re-evaluation Re-evalutation: Patient seen and examined vital signs reviewed. Laboratory data and imaging were ordered as appropriate for the patient's presenting symptoms and complaint, with consideration of any critical or life threatening conditions that may be associated with their obtained history and exam as noted above. Patient was treated with IV Lasix 40 mg, and placed on CPAP, the patient initially was on supplemental oxygen, he attempted to Tosin to the bathroom, was extremely labored, can only ambulate about 3-1/2 feet without having a very hard time breathing, at this point that so the patient was placed on CPAP to assist with his breathing. Results were reviewed when available and demonstrated troponin of 0.02, with a BNP of greater than 15,000, which is markedly more elevated than the patient's prior lab work for BNP, his renal function appeared to be close to his baseline. Chest x-ray demonstrated cardiomegaly, without evidence of acute infiltrate. Evaluation was most consistent with acute exacerbation of CHF, severe dyspnea on exertion, I did discuss the case with Dr. Stokes, who requested repeat troponin, which did come back at 0.022, essentially flat, and unchanged. We did trial the patient on BiPAP, he did not tolerate well, states that he will try again later, when he is feeling more tired, currently on submental oxygen. Results were discussed with the patient at this point after careful consideration I feel that that patient should be admitted to the hospital. This was discussed with the patient that it is in the best interest for their care to be admitted for further evaluation and management. Patient agreed with this plan of care. A call was placed to the admitted physician, Dr. Stokes who graciously accepted the patient onto their service. *Note is created using voice recognition software and may contain spelling, syntax or grammatical errors. Laboratory 01/04/19 01/04/19 01/04/19 02:17 02:17 02:17 WBC 7.3 RBC 4.30 L Hgb 11.7 L Hct 35.9 L MCV 83 MCH 27.3 MCHC 32.7 RDW 17.8 H Plt Count 165 Seg Neutrophils % 78.6 H Lymphocytes % 8.8 L Monocytes % 10.0 Eosinophils % 2.2 Basophils % 0.4 Absolute Neutrophils 5.7 Absolute Lymphocytes 0.6 Absolute Monocytes 0.7 Absolute Eosinophils 0.2 Absolute Basophils 0.0 Sodium 135.7 L Potassium 3.8 Chloride 101 Carbon Dioxide 24 Anion Gap 11 BUN 28 H Creatinine 1.76 H Est GFR ( Amer) 46 L Est GFR (Non-Af Amer) 38 L Glucose 153 H Calcium 8.9 Total Bilirubin 1.2 Direct Bilirubin 0.4 Neonat Total Bilirubin Not Reportable Neonat Direct Bilirubin Not Reportable Neonat Indirect Bili Not Reportable AST 43 ALT 36 Alkaline Phosphatase 102 Troponin I 0.020 NT-Pro-B Natriuret Pep Total Protein 6.3 Albumin 3.1 L 01/04/19 02:17 WBC RBC Hgb Hct MCV MCH MCHC RDW Plt Count Seg Neutrophils % Lymphocytes % Monocytes % Eosinophils % Basophils % Absolute Neutrophils Absolute Lymphocytes Absolute Monocytes Absolute Eosinophils Absolute Basophils Sodium Potassium Chloride Carbon Dioxide Anion Gap BUN Creatinine Est GFR ( Amer) Est GFR (Non-Af Amer) Glucose Calcium Total Bilirubin Direct Bilirubin Neonat Total Bilirubin Neonat Direct Bilirubin Neonat Indirect Bili AST ALT Alkaline Phosphatase Troponin I NT-Pro-B Natriuret Pep 33377 H Total Protein Albumin Chest X-Ray 01/04/19 01:59 IMPRESSION: Clear lungs. - Vital Signs Vital signs: Temp Pulse Resp BP Pulse Ox 97.9 F 22 H 109/97 H 97 01/04/19 01:43 01/04/19 05:19 01/04/19 03:02 01/04/19 05:19 - Laboratory Result Diagrams: 01/04/19 02:17 01/04/19 02:17 Laboratory results interpreted by me: 01/04/19 01/04/19 01/04/19 02:17 02:17 02:17 RBC 4.30 L Hgb 11.7 L Hct 35.9 L RDW 17.8 H Seg Neutrophils % 78.6 H Lymphocytes % 8.8 L Sodium 135.7 L BUN 28 H Creatinine 1.76 H Est GFR ( Amer) 46 L Est GFR (Non-Af Amer) 38 L Glucose 153 H NT-Pro-B Natriuret Pep 01657 H Albumin 3.1 L - EKG Interpretation by Me Additional EKG results interpreted by me: EKG demonstrates sinus bradycardia with a ventricular rate of 58 bpm, normal axis, QTC 456 ms, there is slight ST depression in leads V2 through V4, no ST elevations, this is compared with a prior EKG from 01/19/2018, without significant change. Critical Care Note - Critical Care Note Total time excluding time spent on procedures (mins): 35 Comments: Critical care time 35 minutes exclusive from separate billable procedures for a patient requiring complex medical decision making, and high potential for clinical deterioration. In a patient with history of CAD, severe dyspnea on exertion, concern for volume overload, and need for noninvasive positive pressure ventilation. Time spent obtaining history from patient or surrogate, discussions with consultants, development of treatment plan with patient or surrogate, evaluation of patient's response to treatment, examination of patient, ordering and performing treatments and interventions, ordering and review of laboratory studies, re-evaluation of patient's condition, ordering and review of radiographic studies and review of old charts Discharge - Discharge Clinical Impression: Dyspnea on exertion Acute exacerbation of CHF (congestive heart failure) Qualifiers: Heart failure type: unspecified Qualified Code(s): I50.9 - Heart failure, unspecified CKD (chronic kidney disease) Qualifiers: Chronic kidney disease stage: stage 3 (moderate) Qualified Code(s): N18.3 - Chronic kidney disease, stage 3 (moderate) Condition: Stable Disposition: ADMITTED INPATIENT Admitting Provider: Kike (Hospitalist) Unit Admitted: Telemetry Referrals: KERVIN CORBETT MD [Primary Care Provider] - Follow up as needed
[2019-01-04 02:33] LABS: ABSOLUTE EOSINOPHILS # (AUTO) 0.2 10^3/uL (0.0-0.6); ABSOLUTE LYMPHOCYTES (AUTO) 0.6 10^3/uL (0.5-4.7); ABSOLUTE MONOCYTES (AUTO) 0.7 10^3/uL (0.1-1.4); ABSOLUTE NEUT (AUTO) 5.7 10^3/uL (1.7-8.2); BASOPHILS % (AUTO) 0.4 % (0-2); EOSINOPHILS % (AUTO) 2.2 % (0-6); HEMATOCRIT 35.9 % (37.9-51.0); HEMOGLOBIN 11.7 g/dL (13.5-17.0); LYMPHOCYTES % (AUTO) 8.8 % (13-45); MEAN CORPUSCULAR HEMOGLOBIN 27.3 pg (27.0-33.4); MEAN CORPUSCULAR HGB CONC 32.7 g/dL (32.0-36.0); MEAN CORPUSCULAR VOLUME 83 fl (80-97); PLATELET COUNT 165 10^3/uL (150-450); RED CELL DISTRIBUTION WIDTH 17.8 % (11.5-14.0); SEGMENTED NEUTROPHILS % (AUTO) 78.6 % (42-78); TOTAL CELLS COUNTED % (AUTO) 100 %; WHITE BLOOD COUNT 7.3 10^3/uL (4.0-10.5)
[2019-01-04 02:48] LABS: ALANINE AMINOTRANSFERASE 36 U/L (21-72); ALBUMIN 3.1 g/dL (3.5-5.0); ALKALINE PHOSPHATASE 102 U/L (38-126); ANION GAP 11 (5-19); ASPARTATE AMINO TRANSFERASE 43 U/L (17-59); BILIRUBIN,DIRECT 0.4 mg/dL (0.0-0.4); BILIRUBIN,TOTAL 1.2 mg/dL (0.2-1.3); BLOOD UREA NITROGEN 28 mg/dL (7-20); CALCIUM 8.9 mg/dL (8.4-10.2); CARBON DIOXIDE 24 mmol/L (22-30); CHLORIDE 101 mmol/L (98-107); GLUCOSE 153 mg/dL (75-110); POTASSIUM 3.8 mmol/L (3.6-5.0); SODIUM 135.7 mmol/L (137-145); TOTAL PROTEIN 6.3 g/dL (6.3-8.2)
[2019-01-04] MEDS ORDERED: FUROSEMIDE INJ/PF 40 MG/4 ML SDV IV ONE (02:56)
--- NOTE | 2019-01-04 03:01 | RADIOLOGY REPORT (SQ) ---
CLINICAL HISTORY: shortness of breath, cough COMPARISON: January 23, 2018. TECHNIQUE: XR CHEST 1 VIEW 01/04/2019 1:59 AM CDT FINDINGS: The heart is enlarged. Sternotomy was performed. Lungs are clear without consolidation, atelectasis, mass or edema. There is no pleural effusion. There is no pneumothorax. There are no acute osseous findings. IMPRESSION: Clear lungs.
[2019-01-04] MEDS ORDERED: ACETAMINOPHEN 325 MG TABLET PO PRN (06:11)
[2019-01-04] MEDS ORDERED: ASPIRIN 81 MG TABLET, CHEWABLE PO SCH (06:15)
--- NOTE | 2019-01-04 06:22 | PDOC H&P ---
History of Present Illness Admission Date/PCP: KERVIN CORBETT Patient complains of: sob History of Present Illness: ANSHU MCNAMARA is a 73 year old male with a history of CHF, pulmonary hypertension, moderate mitral regurg, hypertension, dyslipidemia, coronary a rtery disease, morbid obesity and suspected obstructive sleep apnea. He presents with 1 month of worsening shortness of breath with exertion denying chest pain nausea vomiting diaphoresis. He also complains of diffuse chronic arthritic pain. Work-up is concerning for congestive heart failure with pulmonary vascular congestion on x-ray, acute renal failure and a BNP of 15,000. He receives IV Lasix and referred to the hospitalist for admission. Patient denies recent change in medication regiment. Past Medical History Cardiac Medical History: Reports: Congestive Heart Failure, Coronary Artery Disease, Hyperlipidema, Hypertension Denies: Atrial Fibrillation, Myocardial Infarction, Peripheral Vascular Disease, Heart Murmur Pulmonary Medical History: Reports: Pneumonia Denies: Asthma, Bronchitis, Chronic Obstructive Pulmonary Disease (COPD), Sleep Apnea, Tuberculosis Neurological Medical History: Denies: Seizures Endocrine Medical History: Denies: Hyperthyroidism, Hypothyroidism GI Medical History: Reports: Gastroesophageal Reflux Disease Denies: Crohn's Disease, Hiatal Hernia Musculoskeltal Medical History: Reports: Arthritis - knees, hips Denies: Fibromyalgia Psychiatric Medical History: Denies: Bipolar Disorder, Depression Hematology: Reports: Anemia Denies: Sickle Cell Disease Past Surgical History Past Surgical History: Reports: Cardiac Catheterization, Coronary Stent, Orthopedic Surgery - left hip fx, Other - Patient tells me he has had an aortic valve replacement. I cannot verify Denies: Appendectomy, Cholecystectomy, Colostomy, Coronary Artery Bypass Graft, Gastric Bypass Surgery, Herniorrhaphy, Tonsillectomy Social History Information Source: Patient, Emergency Med Personnel, [facility] Records Smoking Status: Never Smoker Frequency of Alcohol Use: None Hx Recreational Drug Use: No Drugs: None Hx Prescription Drug Abuse: No - Advance Directive Resuscitation Status: Full Code Family History Family History: CAD, DM, Hypertension Parental Family History Reviewed: Yes Children Family History Reviewed: Yes Sibling(s) Family History Reviewed.: Yes Medication/Allergy Home Medications: Duloxetine HCl [Cymbalta] 60 mg PO DAILY 09/23/13 Pantoprazole Sodium [Protonix] 40 mg PO DAILY 11/23/13 Atorvastatin Calcium [Lipitor 10 mg Tablet] 10 mg PO QHS 12/11/13 Clopidogrel Bisulfate [Plavix 75 mg Tablet] 75 mg PO DAILY 04/17/14 Tamsulosin HCl [Flomax] 0.4 mg PO QHS #30 cap.sr.24h 09/06/14 Carvedilol [Coreg 6.25 mg Tablet] 12.5 mg PO Q12 07/28/16 Losartan Potassium 100 mg PO DAILY 07/28/16 Meloxicam [Mobic] 15 mg PO DAILYP PRN 12/22/17 Acetaminophen [Tylenol 325 mg Tablet] 650 mg PO Q6HP PRN tablet 01/28/18 Aspirin [Aspirin 81 mg Chewable Tablet] 81 mg PO DAILY tab.chew 01/28/18 Cyanocobalamin/FA/Pyridoxine [Folbee Tablet] 1 tab PO DAILY tablet 01/28/18 Docusate Sodium [Colace 100 mg Capsule] 100 mg PO BID PRN #60 capsule 01/28/18 Furosemide [Lasix 20 mg Tablet] 40 mg PO DAILY #0 01/28/18 Prednisone [Deltasone 20 mg Tablet] 20 mg PO DAILY #7 tablet 01/28/18 Risperidone [Risperdal 0.25 mg Tablet] 0.25 mg PO Q12 #60 tablet 01/28/18 Zolpidem Tartrate [Ambien 5 mg Tablet] 5 mg PO QHS #30 tablet 01/28/18 Allergies/Adverse Reactions: No Known Allergies Allergy (Verified 01/04/19 03:05) Review of Systems Constitutional: PRESENT: as per HPI, fatigue, weakness, weight gain. ABSENT: fever(s), headache(s), night sweats Eyes: ABSENT: visual disturbances Ears: ABSENT: hearing changes Cardiovascular: PRESENT: as per HPI, dyspnea on exertion, edema, orthropnea. A BSENT: chest pain, palpitations Respiratory: PRESENT: as per HPI, cough, dyspnea. ABSENT: sputum Gastrointestinal: ABSENT: abdominal pain, constipation, diarrhea, hematemesis, hematochezia, nausea, vomiting Genitourinary: ABSENT: dysuria, hematuria Musculoskeletal: ABSENT: joint swelling Integumentary: ABSENT: rash, wounds Neurological: ABSENT: abnormal gait, abnormal speech, confusion, dizziness, focal weakness, syncope Psychiatric: ABSENT: anxiety, depression, homidical ideation, suicidal ideation Endocrine: ABSENT: cold intolerance, heat intolerance, polydipsia, polyuria Hematologic/Lymphatic: ABSENT: easy bleeding, easy bruising Physical Exam Vital Signs: Temp Pulse Resp BP Pulse Ox 97.9 F 22 H 109/97 H 97 01/04/19 01:43 01/04/19 05:19 01/04/19 03:02 01/04/19 05:19 Intake & Output 01/02/19 01/03/19 01/04/19 11:59 11:59 11:59 Weight 134.4 kg General appearance: PRESENT: cooperative, disheveled, mild distress, morbidly obese Head exam: PRESENT: atraumatic, normocephalic Eye exam: PRESENT: conjunctiva pink, EOMI, PERRLA. ABSENT: scleral icterus Ear exam: PRESENT: normal external ear exam Mouth exam: PRESENT: moist, tongue midline Neck exam: PRESENT: full ROM, JVD. ABSENT: carotid bruit, lymphadenopathy, thyromegaly Respiratory exam: PRESENT: accessory muscle use, crackles, prolonged expiratory phas, symmetrical, tachypnea. ABSENT: rhonchi, stridor Cardiovascular exam: PRESENT: RRR. ABSENT: diastolic murmur, rubs, systolic murmur Pulses: PRESENT: normal dorsalis pedis pul Vascular exam: PRESENT: normal capillary refill GI/Abdominal exam: PRESENT: normal bowel sounds, soft. ABSENT: distended, guarding, mass, organolmegaly, rebound, tenderness Rectal exam: PRESENT: deferred Extremities exam: PRESENT: full ROM, +2 edema. ABSENT: calf tenderness, clubbing, pedal edema Neurological exam: PRESENT: alert, awake, oriented to person, oriented to place, oriented to time, oriented to situation, CN II-XII grossly intact. ABSENT: motor sensory deficit Psychiatric exam: PRESENT: appropriate affect, normal mood. ABSENT: homicidal ideation, suicidal ideation Skin exam: PRESENT: dry, intact, warm. ABSENT: cyanosis, rash Results Laboratory Results: 01/04/19 02:17 01/04/19 02:17 01/04/19 01/04/19 02:17 02:17 WBC 7.3 RBC 4.30 L Hgb 11.7 L Hct 35.9 L MCV 83 MCH 27.3 MCHC 32.7 RDW 17.8 H Plt Count 165 Seg Neutrophils % 78.6 H Lymphocytes % 8.8 L Monocytes % 10.0 Eosinophils % 2.2 Basophils % 0.4 Absolute Neutrophils 5.7 Absolute Lymphocytes 0.6 Absolute Monocytes 0.7 Absolute Eosinophils 0.2 Absolute Basophils 0.0 Sodium 135.7 L Potassium 3.8 Chloride 101 Carbon Dioxide 24 Anion Gap 11 BUN 28 H Creatinine 1.76 H Est GFR ( Amer) 46 L Est GFR (Non-Af Amer) 38 L Glucose 153 H Calcium 8.9 Total Bilirubin 1.2 AST 43 ALT 36 Alkaline Phosphatase 102 Total Protein 6.3 Albumin 3.1 L 01/04/19 01/04/19 01/04/19 02:17 02:17 05:00 Troponin I 0.020 0.022 NT-Pro-B Natriuret Pep 46307 H Impressions: Chest X-Ray 01/04/19 01:59 IMPRESSION: Clear lungs. Assessment and Plan - Diagnosis (1) Acute exacerbation of CHF (congestive heart failure) Qualifiers: Heart failure type: unspecified Qualified Code(s): I50.9 - Heart failure, unspecified Is this a current diagnosis for this admission?: Yes Plan: Suspect acute worsening of heart failure likely recent LA, follow-up 2D echo, optimize medication regiment (2) Acute kidney injury superimposed on CKD Is this a current diagnosis for this admission?: Yes Plan: Likely secondary to reduced cardiac output, possibly NSAIDs, follow-up urinalysis and chemistry (3) Debility Is this a current diagnosis for this admission?: Yes Plan: Physical therapy consult - Time Time Spent with patient: 25-34 minutes - Inpatient Certification Medical Necessity: Need Close Monitoring Due to Risk of Patient Decompensation
[2019-01-04 07:41] LABS: CREATINE KINASE MB 1.05 ng/mL (<4.55); TROPONIN I 0.023 ng/mL
[2019-01-04] MEDS ORDERED: (PENDING PHARMACY ID) (Losartan Potassium [Losartan Potassium] 100 MG) PO SCH (10:00)
[2019-01-04] MEDS ORDERED: CARVEDILOL 6.25 MG TABLET PO SCH (10:00)
--- NOTE | 2019-01-04 10:22 | EKG REPORT ---
SEVERITY:- ABNORMAL ECG - SINUS RHYTHM REPOL ABNRM SUGGESTS ISCHEMIA, ANTERIOR LEADS : Confirmed by: Cma Baker 04-Jan-2019 10:21:08
[2019-01-04] MEDS: CLOPIDOGREL BISULFATE 75 MG TABLET PO SCH (11:05)
[2019-01-04] MEDS: DOCUSATE SODIUM 100 MG CAPSULE PO SCH ×2 (11:05→17:19)
[2019-01-04] MEDS: FUROSEMIDE 40 MG TABLET PO SCH ×2 (11:06→17:20)
[2019-01-04] MEDS: DULOXETINE HCL 30 MG CAPSULE.DR PO SCH (11:06)
[2019-01-04] MEDS: ASPIRIN 81 MG TABLET, ENT COATED PO SCH (11:06)
[2019-01-04] MEDS: CELECOXIB 200 MG CAPSULE PO SCH (11:06)
[2019-01-04] MEDS: POTASSIUM CHLORIDE 10 MEQ CAPSULE.ER PO SCH ×2 (11:07→21:28)
[2019-01-04] MEDS: LOSARTAN POTASSIUM 50 MG TABLET PO SCH (11:07)
[2019-01-04] MEDS: CYANOCOBALAMIN/FA/PYRIDOXINE TABLET PO SCH (11:32)
[2019-01-04] MEDS: PANTOPRAZOLE SODIUM 40 MG PACKET.DR PO SCH (11:33)
[2019-01-04] MEDS: CARVEDILOL 12.5 MG TABLET PO SCH ×2 (11:51→21:29)
[2019-01-04] MEDS: RISPERIDONE 0.25 MG TABLET PO SCH ×2 (11:56→21:30)
[2019-01-04 13:18] LABS: CREATINE KINASE MB 1.09 ng/mL (<4.55); TROPONIN I 0.019 ng/mL
[2019-01-04] MEDS: HEPARIN SOD (PORCINE) 5,000 UNIT/ML 1 ML SYRINGE SUBCUT SCH ×2 (13:25→21:29)
[2019-01-04 15:00] LABS: ANION GAP 14 (5-19); BLOOD UREA NITROGEN 28 mg/dL (7-20); CALCIUM 9.4 mg/dL (8.4-10.2); CARBON DIOXIDE 21 mmol/L (22-30); CHLORIDE 101 mmol/L (98-107); GLUCOSE 146 mg/dL (75-110); SODIUM 135.9 mmol/L (137-145)
[2019-01-04 16:55] LABS: APPEARANCE,URINE CLEAR; BILIRUBIN,URINE NEGATIVE (NEGATIVE); COLOR,URINE YELLOW; GLUCOSE, URINE NEGATIVE (NEGATIVE); KETONES,URINE NEGATIVE (NEGATIVE); LEUKOCYTE ESTERASE,URINE NEGATIVE (NEGATIVE); NITRITE,URINE NEGATIVE (NEGATIVE); PROTEIN,URINE 30 mg/dL (NEGATIVE); URINE SPECIFIC GRAVITY 1.004; UROBILINOGEN,URINE NEGATIVE mg/dL (<2.0)
[2019-01-04 19:28] LABS: CREATINE KINASE MB 0.84 ng/mL (<4.55); TROPONIN I 0.018 ng/mL
--- NOTE | 2019-01-04 20:20 | XCELERA REPORT ---
[address] [address] Transthoracic Echocardiogram Report Name: ANSHU MCNAMARA Age: 73 yrs Gender: Male : 1945 Patient Status: Inpatient Patient Location: [place] [address]^A Study Date: 01/04/2019 09:32 AM Height: 69 in Weight: 296 lb BSA: 2.4 m2 Procedure: A two-dimensional transthoracic echocardiogram with color flow and Doppler was performed. Study Quality: Poor. The study was technically difficult with many images being suboptimal in quality. Reason For Study: systolic murur History: systolic murur. Ordering Physician: SPRING FERNANDEZ Performed By: Virginia Kwong Interpretation Summary The left ventricle is borderline dilated. There is normal left ventricular wall thickness. LV EF is 60% The left ventricular ejection fraction is within normal limits. Doppler measurements suggest normal left ventricular diastolic function The left ventricular wall motion is normal. There is no thrombus. Cannot asses ASD,VSD,or PFO. The right ventricle is not well visualized secondary to technical limitations Suspect mild to moderate RV dilatation. The left atrium is severely dilated. Calcified mitral apparatus causing mitral stenosis. There is no evidence of mitral valve prolapse. There is no vegetation seen on the mitral valve. There is mild to moderate mitral stenosis There is a mild amount of mitral regurgitation There is no aortic valvular vegetation. There is no aortic valve stenosis There is aortic sclerosis without aortic stenosis. There is no LVOT obstruction. No aortic regurgitation is present. There is no tricuspid stenosis. There is a moderate amount of tricuspid regurgitation There is servere pulmonary hypertension by echo RVSP is 81 to 86 mm of Hg , with RA mean of 5 -10. There is no pulmonic valvular stenosis. There is no pulmonic valvular regurgitation. The aortic root is not well visualized but is probably normal size. The inferior vena cava appeared normal and decreased > 50% with respiration (RAP 5-10 mmHg) There is no pericardial effusion. MMode/2D Measurements & Calculations RVDd: 4.1 cm LVIDd: 6.1 cm FS: 32.7 % Ao root diam: 3.2 cm IVSd: 0.99 cm LVIDs: 4.1 cm EDV(Teich): 190.4 ml Ao root area: 8.1 cm2 LVPWd: 1.5 cm ESV(Teich): 75.9 ml EF(Teich): 60.1 % Doppler Measurements & Calculations MV E max wili: MV dec slope: Ao V2 max: LV V1 max P.8 cm/sec 542.8 cm/sec2 151.4 cm/sec 2.2 mmHg MV A max wili: MV dec time: 0.39 sec Ao max PG: LV V1 max: 124.1 cm/sec 9.2 mmHg 74.8 cm/sec MV E/A: 1.7 LV dP/dt: 1402 mmHg/s PA V2 max: TR max wili: 78.6 cm/sec 431.9 cm/sec PA max P.5 mmHg TR max P.8 mmHg Left Ventricle The left ventricle is borderline dilated. There is normal left ventricular wall thickness. LV EF is 60%. The left ventricular ejection fraction is within normal limits. Doppler measurements suggest normal left ventricular diastolic function. The left ventricular wall motion is normal. There is no thrombus. Cannot asses ASD,VSD,or PFO. Right Ventricle The right ventricle is not well visualized secondary to technical limitations. Suspect mild to moderate RV dilatation. Atria The right atrium is mild to moderately dilated. The left atrium is severely dilated. Mitral Valve Calcified mitral apparatus causing mitral stenosis. There is no evidence of mitral valve prolapse. There is no vegetation seen on the mitral valve. There is mild to moderate mitral stenosis. There is a mild amount of mitral regurgitation. Aortic Valve There is no aortic valvular vegetation. There is no aortic valve stenosis. There is aortic sclerosis without aortic stenosis. There is no LVOT obstruction. No aortic regurgitation is present. Tricuspid Valve There is no tricuspid stenosis. There is a moderate amount of tricuspid regurgitation. There is servere pulmonary hypertension by echo. RVSP is 81 to 86 mm of Hg , with RA mean of 5 -10. Pulmonic Valve There is no pulmonic valvular stenosis. There is no pulmonic valvular regurgitation. Great Vessels The aortic root is not well visualized but is probably normal size. The inferior vena cava appeared normal and decreased > 50% with respiration (RAP 5-10 mmHg). Effusions There is no pericardial effusion. : SPRING FERNANDEZ > Carmela Torres
[2019-01-04] MEDS ORDERED: ATORVASTATIN CALCIUM 20 MG TABLET PO SCH (22:00)
[2019-01-04] MEDS ORDERED: TAMSULOSIN HCL 0.4 MG CAP.SR.24H PO SCH (22:00)
[2019-01-04] MEDS ORDERED: ATORVASTATIN CALCIUM 10 MG TABLET PO SCH (22:00)
[2019-01-05 05:17] LABS: HEMATOCRIT 36.2 % (37.9-51.0); HEMOGLOBIN 12.1 g/dL (13.5-17.0); MEAN CORPUSCULAR HEMOGLOBIN 27.8 pg (27.0-33.4); MEAN CORPUSCULAR HGB CONC 33.4 g/dL (32.0-36.0); MEAN CORPUSCULAR VOLUME 83 fl (80-97); PLATELET COUNT 170 10^3/uL (150-450); RED BLOOD COUNT 4.34 10^6/uL (4.35-5.55); RED CELL DISTRIBUTION WIDTH 18.1 % (11.5-14.0); WHITE BLOOD COUNT 7.8 10^3/uL (4.0-10.5)
[2019-01-05 05:35] LABS: ANION GAP 13 (5-19); BLOOD UREA NITROGEN 33 mg/dL (7-20); CALCIUM 8.9 mg/dL (8.4-10.2); CARBON DIOXIDE 24 mmol/L (22-30); CHLORIDE 98 mmol/L (98-107); GLUCOSE 123 mg/dL (75-110); POTASSIUM 4.3 mmol/L (3.6-5.0); SODIUM 134.7 mmol/L (137-145)
[2019-01-05] MEDS: HEPARIN SOD (PORCINE) 5,000 UNIT/ML 1 ML SYRINGE SUBCUT SCH (05:36)
[2019-01-05] MEDS: DOCUSATE SODIUM 100 MG CAPSULE PO SCH (09:36)
[2019-01-05] MEDS: ASPIRIN 81 MG TABLET, ENT COATED PO SCH (09:36)
[2019-01-05] MEDS: FUROSEMIDE 40 MG TABLET PO SCH (09:36)
[2019-01-05] MEDS: DULOXETINE HCL 30 MG CAPSULE.DR PO SCH (09:37)
[2019-01-05] MEDS: POTASSIUM CHLORIDE 10 MEQ CAPSULE.ER PO SCH (09:37)
[2019-01-05] MEDS: CELECOXIB 200 MG CAPSULE PO SCH (09:37)
[2019-01-05] MEDS: CARVEDILOL 12.5 MG TABLET PO SCH (09:38)
[2019-01-05] MEDS: LOSARTAN POTASSIUM 50 MG TABLET PO SCH (09:38)
[2019-01-05] MEDS: CLOPIDOGREL BISULFATE 75 MG TABLET PO SCH (09:39)
[2019-01-05] MEDS: PANTOPRAZOLE SODIUM 40 MG PACKET.DR PO SCH (09:39)
[2019-01-05] MEDS: RISPERIDONE 0.25 MG TABLET PO SCH (09:39)
[2019-01-05] MEDS: CYANOCOBALAMIN/FA/PYRIDOXINE TABLET PO SCH (09:39)
[2019-01-05] MEDS ORDERED: TAMSULOSIN HCL 0.4 MG CAP.SR.24H PO SCH (10:00)
[2019-01-05 10:51] VITALS: BP 158/69
--- NOTE | 2019-01-05 12:15 | PDOC DISCHARGE SUMMARY ---
General - Admit/Disc Date/PCP Admission Date/Primary Care Provider: 01/04/19 06:19 KERVIN CORBETT Discharge Date: 01/05/19 - Discharge Diagnosis (1) Acute exacerbation of CHF (congestive heart failure) Is this a current diagnosis for this admission?: Yes (2) CKD (chronic kidney disease) Is this a current diagnosis for this admission?: Yes (3) CAD (coronary artery disease) Is this a current diagnosis for this admission?: Yes (4) Hyperlipidemia Is this a current diagnosis for this admission?: Yes (5) Hypertension Is this a current diagnosis for this admission?: Yes - Additional Information Resuscitation Status: Full Code Discharge Diet: Cardiac Discharge Activity: Activity As Tolerated, Balance Activity w/Rest, Weigh Daily Home Medications: Duloxetine HCl [Cymbalta] 60 mg PO DAILY 09/23/13 Pantoprazole Sodium [Protonix] 40 mg PO DAILY 11/23/13 Clopidogrel Bisulfate [Plavix 75 mg Tablet] 75 mg PO DAILY 04/17/14 Losartan Potassium 100 mg PO DAILY 07/28/16 Risperidone [Risperdal 0.25 mg Tablet] 0.25 mg PO Q12 #60 tablet 01/28/18 Aspirin [Ecotrin 81 mg EC Tablet] 81 mg PO DAILY 01/04/19 Atorvastatin Calcium [Lipitor 20 mg Tablet] 20 mg PO QHS 01/04/19 Carvedilol [Coreg 12.5 mg Tablet] 12.5 mg PO Q12 01/04/19 Celecoxib [Celebrex 200 mg Capsule] 200 mg PO DAILY 01/04/19 Furosemide [Lasix 40 mg Tablet] 40 mg PO BID 01/04/19 Tamsulosin HCl [Flomax 0.4 mg Cap.sr] 0.4 mg PO DAILY 01/04/19 Cyanocobalamin/FA/Pyridoxine [Folbee Tablet] 1 tab PO DAILY tablet 01/05/19 Docusate Sodium [Colace 100 mg Capsule] 100 mg PO BID capsule 01/05/19 History of Present Illness History of Present Illness: ANSHU MCNAMARA is a 73 year old male Hospital Course Hospital Course: HPI: ANSHU MCNAMARA is a 73 year old male with a history of CHF, pulmonary hypertension, moderate mitral regurg, hypertension, dyslipidemia, coronary artery disease, morbid obesity and suspected obstructive sleep apnea. He presents with 1 month of worsening shortness of breath with exertion denying chest pain nausea vomiting diaphoresis. He also complains of diffuse chronic arthritic pain. Work-up is concerning for congestive heart failure with pulmonary vascular congestion on x-ray, acute renal failure and a BNP of 15,000. He receives IV Lasix and referred to the hospitalist for admission. Patient denies recent change in medication regiment. Physical examination: Patient is no acute distress Alert oriented to time place person No anxiety or depression Head: atraumatic normocephalic Pupils: are equal reactive Neck: is supple and trachea is central no lymphadenopathy No pharyngeal erythema or exudates Heart: Regular rate and rhythm, +1 edema Lungs: clear no distress Abdomen: nontender nondistended Neurological exam: unremarkable Musculoskeletal: No joint swelling or effusion chronic lower back pain and tenderness No suicidal or homicidal ideation Hospital course: (1) Acute exacerbation of CHF (congestive heart failure) Patient received IV Lasix in the emergency room. He continues on oral Lasix as home dose. Echocardiogram ordered. Can be followed up outpatient. He is currently asymptomatic and back to his baseline. (2) HTN Continue home medications. (3) Dyslipidemia Continue atorvastatin (4) CAD Denies chest pain. Continue cardiac medications. (5) CKD More or less stable. Follow-up outpatient. Physical Exam Vital Signs: Temp Pulse Resp BP Pulse Ox 97.5 F 57 L 16 158/69 H 94 01/05/19 08:00 01/05/19 08:00 01/05/19 08:00 01/05/19 08:00 01/05/19 08:17 Intake & Output 01/04/19 01/05/19 01/06/19 06:59 06:59 06:59 Intake Total 1280 Balance 1280 Weight 296 lb 4.82 oz 296 lb 4.82 oz Results Laboratory Results: 01/05/19 04:22 01/05/19 04:22 01/04/19 01/04/19 01/05/19 14:14 16:10 04:22 WBC RBC Hgb Hct MCV MCH MCHC RDW Plt Count Sodium 135.9 L 134.7 L Potassium 4.0 4.3 Chloride 101 98 Carbon Dioxide 21 L 24 Anion Gap 14 13 BUN 28 H 33 H Creatinine 1.90 H 2.06 H Est GFR ( Amer) 42 L 39 L Est GFR (Non-Af Amer) 35 L 32 L Glucose 146 H 123 H Calcium 9.4 8.9 Urine Color YELLOW Urine Appearance CLEAR Urine pH 6.0 Ur Specific [place] 1.004 Urine Protein 30 H Urine Glucose (UA) NEGATIVE Urine Ketones NEGATIVE Urine Blood LARGE H Urine Nitrite NEGATIVE Ur Leukocyte Esterase NEGATIVE Urine WBC (Auto) 5 Urine RBC (Auto) 168 01/05/19 04:22 WBC 7.8 RBC 4.34 L Hgb 12.1 L Hct 36.2 L MCV 83 MCH 27.8 MCHC 33.4 RDW 18.1 H Plt Count 170 Sodium Potassium Chloride Carbon Dioxide Anion Gap BUN Creatinine Est GFR ( Amer) Est GFR (Non-Af Amer) Glucose Calcium Urine Color Urine Appearance Urine pH Ur Specific [place] Urine Protein Urine Glucose (UA) Urine Ketones Urine Blood Urine Nitrite Ur Leukocyte Esterase Urine WBC (Auto) Urine RBC (Auto) 01/04/19 01/04/19 01/04/19 02:17 02:17 05:00 Creatine Kinase CK-MB (CK-2) Troponin I 0.020 0.022 NT-Pro-B Natriuret Pep [id number] H 01/04/19 01/04/19 01/04/19 06:58 06:58 12:25 Creatine Kinase 87 101 CK-MB (CK-2) 1.05 Troponin I 0.023 NT-Pro-B Natriuret Pep 01/04/19 01/04/19 01/04/19 12:25 18:23 18:23 Creatine Kinase 89 CK-MB (CK-2) 1.09 0.84 Troponin I 0.019 0.018 NT-Pro-B Natriuret Pep Impressions: Chest X-Ray 01/04/19 01:59 IMPRESSION: Clear lungs. Qualifiers - * PATIENT BEING DISCHARGED WITH ANY OF THE FOLLOWING DIAGNOSIS: No Acute Heart Failure Is this a Heart Failure Patient?: Yes Documentation of LVEF assessment?: Planned for after discharge
== END 2019-01-05 14:30 | disposition home or self-care (01) ==
LOC: ER 01:42 → INTOOBSV 06:19 → EH 06:19 → 5 12:13
PROVIDERS: ADMIT Internal Medicine; ATTEND Internal Medicine
DX: I13.0 Hypertensive heart and chronic kidney disease with heart failure and stage 1 through stage 4 chronic kidney disease, or unspecified chronic kidney disease (principal); I50.9 Heart failure, unspecified; N17.9 Acute kidney failure, unspecified; N18.3 Chronic kidney disease, stage 3 (moderate); E78.5 Hyperlipidemia, unspecified; I25.10 Atherosclerotic heart disease of native coronary artery without angina pectoris; E66.01 Morbid (severe) obesity due to excess calories; R53.81 Other malaise; E66.9 Obesity, unspecified; M13.852 Other specified arthritis, left hip; M13.851 Other specified arthritis, right hip; M13.862 Other specified arthritis, left knee; M13.861 Other specified arthritis, right knee; N40.0 Benign prostatic hyperplasia without lower urinary tract symptoms; Z79.899 Other long term (current) drug therapy; Z79.02 Long term (current) use of antithrombotics/antiplatelets; Z79.82 Long term (current) use of aspirin; Z95.5 Presence of coronary angioplasty implant and graft; Z95.4 Presence of other heart-valve replacement; Z82.49 Family history of ischemic heart disease and other diseases of the circulatory system
CPT/HCPCS: 93005; 99291; 96374; 36415 ×2; 87086; 82553; 82550; 84443; 85025; 85027; 80048 ×2; 80053; 81001; 84484; 83880; 93306; 71045; 93010; 94660; A9270 ×22; J1644 ×2; J1940; J3490 ×3; G0378

== ENCOUNTER 2019-01-12 13:49 | Emergency (ER) | payer MEDICARE, BC ==
[2019-01-12] MEDS ORDERED: MIDAZOLAM 2 MG/2 ML INJ IV ONE ×2 (13:56→17:33)
[2019-01-12] MEDS ORDERED: ROCURONIUM BROMIDE INJ 50 MG/5 ML VIAL IV ONE ×2 (13:56→20:48)
[2019-01-12] MEDS ORDERED: MIDAZOLAM HCL 50 MG/100 ML RTUINJ IV PRN (14:06)
[2019-01-12 14:20] LABS: APPEARANCE,URINE SLIGHTLY-CLOUDY; BILIRUBIN,URINE NEGATIVE (NEGATIVE); COLOR,URINE YELLOW; GLUCOSE, URINE NEGATIVE (NEGATIVE); KETONES,URINE NEGATIVE (NEGATIVE); LEUKOCYTE ESTERASE,URINE NEGATIVE (NEGATIVE); NITRITE,URINE NEGATIVE (NEGATIVE); PROTEIN,URINE 100 mg/dL (NEGATIVE); URINE SPECIFIC GRAVITY 1.011; UROBILINOGEN,URINE NEGATIVE mg/dL (<2.0)
[2019-01-12 14:30] LABS: ABSOLUTE BASOPHILS # (AUTO) 0.1 10^3/uL (0.0-0.2); ABSOLUTE EOSINOPHILS # (AUTO) 0.2 10^3/uL (0.0-0.6); ABSOLUTE LYMPHOCYTES (AUTO) 0.7 10^3/uL (0.5-4.7); ABSOLUTE MONOCYTES (AUTO) 0.6 10^3/uL (0.1-1.4); ABSOLUTE NEUT (AUTO) 7.5 10^3/uL (1.7-8.2); BASOPHILS % (AUTO) 0.8 % (0-2); EOSINOPHILS % (AUTO) 2.5 % (0-6); HEMATOCRIT 35.3 % (37.9-51.0); HEMOGLOBIN 11.4 g/dL (13.5-17.0); LYMPHOCYTES % (AUTO) 7.2 % (13-45); MEAN CORPUSCULAR HEMOGLOBIN 27.6 pg (27.0-33.4); MEAN CORPUSCULAR HGB CONC 32.2 g/dL (32.0-36.0); MEAN CORPUSCULAR VOLUME 86 fl (80-97); MONOCYTES % (AUTO) 6.6 % (3-13); PLATELET COUNT 193 10^3/uL (150-450); RED BLOOD COUNT 4.12 10^6/uL (4.35-5.55); RED CELL DISTRIBUTION WIDTH 19.1 % (11.5-14.0); SEGMENTED NEUTROPHILS % (AUTO) 82.9 % (42-78); TOTAL CELLS COUNTED % (AUTO) 100 %
[2019-01-12 14:34] LABS: INTERNATIONAL RATION (INR) 1.26; PROTHROMBIN TIME 16.5 SEC (11.4-15.4)
[2019-01-12 14:51] LABS: ALANINE AMINOTRANSFERASE 78 U/L (21-72); ALBUMIN 3.1 g/dL (3.5-5.0); ALKALINE PHOSPHATASE 107 U/L (38-126); ANION GAP 15 (5-19); ASPARTATE AMINO TRANSFERASE 112 U/L (17-59); BILIRUBIN,DIRECT 0.6 mg/dL (0.0-0.4); BLOOD UREA NITROGEN 37 mg/dL (7-20); CALCIUM 8.4 mg/dL (8.4-10.2); CARBON DIOXIDE 21 mmol/L (22-30); CHLORIDE 108 mmol/L (98-107); CREATINE KINASE 55 U/L (55-170); GLUCOSE 153 mg/dL (75-110); POTASSIUM 4.4 mmol/L (3.6-5.0); SODIUM 143.7 mmol/L (137-145); TOTAL PROTEIN 6.2 g/dL (6.3-8.2)
--- NOTE | 2019-01-12 14:59 | RADIOLOGY REPORT (SQ) ---
EXAM DESCRIPTION: CHEST SINGLE VIEW COMPLETED DATE/TIME: 01/12/2019 2:38 pm REASON FOR STUDY: cardiac arrest COMPARISON: 01/04/2019 EXAM PARAMETERS: NUMBER OF VIEWS: One view. TECHNIQUE: Single frontal radiographic view of the chest acquired. RADIATION DOSE: NA LIMITATIONS: Low volume. FINDINGS: Low volume AP examination with interval placement of endotracheal tube, tip position at th e ostium of the right mainstem bronchus. Interval placement of esophagogastric tube with tip and kristie e port below the diaphragm. Unchanged cardiomegaly and probable left pleural effusion. IMPRESSION: 1. Low volume AP examination with interval placement of endotracheal tube, tip position at the ostium of the right mainstem bronchus. Recommend slight retraction. 2. Interval placement of esophagogastric tube with tip and side port below the diaphragm. 3. Unchanged cardiomegaly and probable left pleural effusion. TECHNICAL DOCUMENTATION: JOB ID: [id number] [employer]- All Rights Reserved Reading location - IP/workstation name: [email or web address]
[2019-01-12 15:01] LABS: ARTERIAL BLOOD BASE EXCESS -2.2 mmol/L; ARTERIAL BLOOD H2CO3 1.42 mmol/L (1.05-1.35); ARTERIAL BLOOD PCO2 47.3 mmHg (35-45); ARTERIAL BLOOD PH 7.32 (7.35-7.45); ARTERIAL BLOOD PO2 75.2 mmHg (80-100); ARTERIAL BLOOD TOTAL CO2 25.5 mmol/L (23-27)
[2019-01-12 15:02] LABS: ARTERIAL BLOOD FIO2 80%
[2019-01-12 15:02] LABS: CREATINE KINASE MB 0.89 ng/mL (<4.55)
[2019-01-12 15:09] LABS: TROPONIN I 0.035 ng/mL
[2019-01-12] MEDS ORDERED: FUROSEMIDE INJ/PF 40 MG/4 ML SDV IV ONE (15:58)
--- NOTE | 2019-01-12 16:11 | EKG REPORT ---
SEVERITY:- ABNORMAL ECG - SINUS RHYTHM FIRST DEGREE AV BLOCK RIGHT BUNDLE BRANCH BLOCK : Confirmed by: Carmela Torres MD 12-Jan-2019 16:10:37
[2019-01-12] MEDS ORDERED: MIDAZOLAM 2 MG/2 ML INJ ONE (16:57)
--- NOTE | 2019-01-12 17:17 | ER Document Report ---
ED General - General Chief Complaint: Cardiac Arrest Stated Complaint: UNRESPONSIVE Time Seen by Provider: 01/12/19 13:55 Primary Care Provider: KERVIN CORBETT MD [Primary Care Provider] - Follow up as needed TRAVEL OUTSIDE OF THE [place] IN LAST 30 DAYS: No - HPI Notes: Patient is a 73-year-old gentleman with an extensive medical history who presents to the emergency department for evaluation after a cardiac arrest. History is entirely obtained from patient's . He had been admitted to the hospital recently, was discharged. They were told he had congestive heart failu re, his kidney function was worsening, and he would need follow-up. He was supposed to have follow-up with Dr. Corbett today. He walked to the car, was incontinent of urine, stated he was too weak to be able to go to the doctors. Patient's states she helped him with his walker inside the house, at which point he went down. She does not believe he hit his head. He was having significant difficulty breathing. Nonmonogamous called. On arrival patient had agonal respirations but was talking. While there, however, the patient's respiratory status worsened and then he went into cardiac arrest. He was found to be in asystole. He had 4 IV epinephrine doses in the field, 2 bicarbs. CPR ensued and they did have ROSC. The patient was intubated in the field as well. He is brought here for further evaluation. - Related Data Allergies/Adverse Reactions: No Known Allergies Allergy (Verified 01/04/19 03:05) Past Medical History - Social History Smoking Status: Former Smoker Frequency of alcohol use: None Drug Abuse: None Family History: CAD, DM, Hypertension Patient has suicidal ideation: No Patient has homicidal ideation: No - Past Medical History Cardiac Medical History: Reports: Hx Congestive Heart Failure, Hx Coronary Artery Disease, Hx Hypercholesterolemia, Hx Hypertension Denies: Hx Atrial Fibrillation, Hx Heart Attack, Hx Peripheral Vascular Disease, Hx Heart Murmur Pulmonary Medical History: Reports: Hx Pneumonia Denies: Hx Asthma, Hx Bronchitis, Hx COPD, Hx Sleep Apnea, Hx Tuberculosis Neurological Medical History: Denies: Hx Cerebrovascular Accident, Hx Seizures Endocrine Medical History: Denies: Hx Hyperthyroidism, Hx Hypothyroidism Renal/ Medical History: Reports: Hx Benign Prostatic Hyperplasia, Hx Renal Insufficiency. Denies: Hx Kidney Stones, Hx Peritoneal Dialysis GI Medical History: Reports: Hx Gastroesophageal Reflux Disease. Denies: Hx Crohn's Disease, Hx Hiatal Hernia, Hx Irritable Bowel, Hx Liver Failure, Hx Pancreatitis, Hx Ulcer Musculoskeletal Medical History: Reports Hx Arthritis - knees, hips , Denies Hx Fibromyalgia, Denies Hx Muscular Dystrophy Psychiatric Medical History: Denies: Hx Bipolar Disorder, Hx Depression Traumatic Medical History: Reports: Hx Fractures - hip Past Surgical History: Reports: Hx Cardiac Catheterization, Hx Cardiac Surgery - stents, Hx Coronary Stent, Hx Orthopedic Surgery - left hip fx, Other - Patient tells me he has had an aortic valve replacement. I cannot verify. Denies: Hx Appendectomy, Hx Bowel Surgery, Hx Cholecystectomy, Hx Colostomy, Hx Coronary Artery Bypass Graft, Hx Gastric Bypass Surgery, Hx Herniorrhaphy, Hx Tonsillectomy - Immunizations Hx Diphtheria, Pertussis, Tetanus Vaccination: Yes - unknown Hx Pneumococcal Vaccination: 08/26/13 Review of Systems - Review of Systems -: Yes ROS unobtainable due to patient's medical condition Physical Exam - Vital signs Vitals: Resp BP Pulse Ox 14 129/74 H 92 01/12/19 14:00 01/12/19 14:00 01/12/19 14:00 - Notes Notes: Patient is brought into the emergency department with ET tube in place. Head is normocephalic and appears atraumatic. Pupils are equal, round, reactive to light. Patient opens his eyes spontaneously, occasionally breathes over the ET tube. Heart is regular rate and rhythm, lungs show diminished breath sounds bilaterally, but breath sounds are present in both lung echeverria. Abdomen is obese, appears nontender. Extremities without cyanosis or clubbing. Patient moves all 4 extremity spontaneously. Gait is warm and dry. Course - Re-evaluation Re-evalutation: 01/12/19 17:15 Patient presents to the emergency department for evaluation. He is status post cardiac arrest. Decision was made to continue respiratory support, the patient was started on a Versed drip. He was given rocuronium to facilitate further intervention as well as placement on the ventilator. Patient's vital signs remained stable throughout the course of his stay. Laboratory investigations, EKG were obtained. Patient's EKG during his last admission showed signs concerning for anterior ischemia. At that time evidently his cardiac enzymes did not increase. Today he has a sinus mechanism and a new right bundle branch block, as well as some ST depression concerning for continued ischemic changes in the anterolateral leads. Chest x-ray is interpreted by myself as showing the ET tube to low, as well as pulmonary edema. The patient was administered IV Lasix. The ET tube was pulled back 3 cm[address] was in [address]. Patient remained hypoxic on 60% FiO2 on the vent. He was already on 5 of PEEP. PEEP was increased. Patient's oxygenation did slowly improve. His ABG showed hypoxemia on 80%, but he is currently satting 98% on 60% FiO2 with 7 of PEEP. Laboratory investigations were otherwise unremarkable. Patient remained stable, but he did require further sedation. We will titrate up on the Versed drip. I did speak with our hospitalist, but there is some concern that the patient will require cardiac intervention. Certainly he had had ischemic changes recently on his EKG. I spoke with Dr. Merino, talent agent at [facility]. Evidently the patient has been seen at [facility] in the past. He agrees a transfer to their facility is appropriate, and will admit the patient to the ICU. - Vital Signs Vital signs: Temp Pulse Resp BP Pulse Ox 98.4 F 17 129/57 H 99 01/12/19 18:01 01/12/19 17:50 01/12/19 18:01 01/12/19 18:01 - Laboratory Result Diagrams: 01/12/19 14:10 01/12/19 14:10 Laboratory results interpreted by me: 01/12/19 01/12/19 01/12/19 14:03 14:10 14:10 RBC 4.12 L Hgb 11.4 L Hct 35.3 L RDW 19.1 H Seg Neutrophils % 82.9 H Lymphocytes % 7.2 L PT 16.5 H Carbonic Acid ABG pH ABG pCO2 ABG pO2 Chloride Carbon Dioxide BUN Creatinine Est GFR ( Amer) Est GFR (Non-Af Amer) Glucose Direct Bilirubin AST ALT Total Protein Albumin Urine Protein 100 H Urine Blood SMALL H 01/12/19 01/12/19 14:10 14:49 RBC Hgb Hct RDW Seg Neutrophils % Lymphocytes % PT Carbonic Acid 1.42 H ABG pH 7.32 L ABG pCO2 47.3 H ABG pO2 75.2 L Chloride 108 H Carbon Dioxide 21 L BUN 37 H Creatinine 2.12 H Est GFR ( Amer) 37 L Est GFR (Non-Af Amer) 31 L Glucose 153 H Direct Bilirubin 0.6 H AST 112 H ALT 78 H Total Protein 6.2 L Albumin 3.1 L Urine Protein Urine Blood - Diagnostic Test Radiology reviewed: Reports reviewed Radiology results interpreted by me: 01/12/19 17:17 Chest X-Ray 01/12/19 13:55 IMPRESSION: 1. Low volume AP examination with interval placement of endotracheal tube, tip position at the ostium of the right mainstem bronchus. Recommend slight retraction. 2. Interval placement of esophagogastric tube with tip and side port below the diaphragm. 3. Unchanged cardiomegaly and probable left pleural effusion. - EKG Interpretation by Me Additional EKG results interpreted by me: 01/12/19 17:18 Sinus mechanism with a rate of 63 bpm. First-degree AV block. Borderline prolonged QT interval. New right bundle branch block. Nonspecific ST changes. All significant change when compared to prior study of January 04, 2019 Critical Care Note - Critical Care Note Total time excluding time spent on procedures (mins): 45 Discharge - Discharge Clinical Impression: Cardiac arrest due to respiratory disorder, Respiratory failure requiring intubation, Hypoxemia Condition: Stable Disposition: [facility] Admitting Provider: Dr. Merino Referrals: KERVIN CORBETT MD [Primary Care Provider] - Follow up as needed
[2019-01-12 18:20] VITALS: BP 129/57
== END 2019-01-12 18:30 | disposition short-term general hospital (02) ==
LOC: ER 13:49
DX: I46.9 Cardiac arrest, cause unspecified (principal); J96.91 Respiratory failure, unspecified with hypoxia; I50.9 Heart failure, unspecified; R32 Unspecified urinary incontinence; I25.10 Atherosclerotic heart disease of native coronary artery without angina pectoris; E78.00 Pure hypercholesterolemia, unspecified; I11.0 Hypertensive heart disease with heart failure; I44.0 Atrioventricular block, first degree
CPT/HCPCS: 93005; 99291; 96374; 36415; 82553; 82803; 82550; 85025; 85610; 80053; 81001; 84484; 71045; 94660; 93010; J2250 ×2; J3490; J1940